=== PATIENT | male | born 1950 | race Caucasian/White ===

== ENCOUNTER 2016-12-22 19:09 | Emergency (ER) | payer OTHER, MEDICARE ==
[~2016-12-22] VITALS: Ht 182.9 cm; Wt 124.7 kg
[~2016-12-22 19:09] MED LIST: AGGRENOX 25 MG-1 CAP PO; ALBUTEROL 3 ML3 ML INH; ALBUTEROL0.09 MG/A1 INH; ALBUTEROL2.5 MG/3 M INH; ALLOPURINOL100 MG; AMLODIPINE BESY10 M1 PO; AMLODIPINE10 MG PO; ATENOLOL50 M1 PO; ATENOLOL50 MG PO; ATORVASTATIN CA40 MG PO; AUGMENTIN 875 M1 TAB PO; Apresoline PO; CARDIZEM 30 MG30 MG PO; CEFTIN500 MG PO; CIPRO500 M1 PO; CLOTRIMAZOLE15 GM TOP; COZAAR100 M1 PO; DIAZEPAM5 MG PO; DILAUDID2 MG PO; DILTIAZEM HCL30 M1 PO; DULOXETINE HCL60 MG PO; ELIQUIS5 M1 PO; ELIQUIS5 MG PO; FINASTERIDE5 M1 PO; FLOMAX0.4 M1 PO; FLUTICASON0.05 MG/A2 NAS; FLUTICASONE PRO16 GM NASB; FUROSEMIDE40 MG PO; GEMFIBROZIL600 M1 PO; GEMFIBROZIL600 MG PO; HYDRALAZINE HCL25 MG PO; HYDROCHLOROTHIA25 M1 PO; LASIX40 MG PO; LIPITOR40 M1 PO; LOPID 600 MG T600 MG PO; LOSARTAN-HCTZ1 EAC2 PO; LYRICA100 MG PO; LYRICA150 MG PO; LYRICA75 MG PO; MELATONIN3 M4 PO; NICORETTE4 M2 PO; NORCO 325 MG-101 TAB PO; NORVASC 10MG10 MG PO; NOVAPLUS V0.09 MG/Ac INH; NOVOLOG100 U/ML SC; Nasal NAS; OXYCODONE HYDRO30 MG PO; OXYCODONE-ACET1 EAC1 PO; OXYCONTIN (MONO40 MG PO; OXYCONTIN15 M1 PO; OXYCONTIN20 MG PO; OXYCONTIN30 MG PO; OXYCONTIN60 MG PO; PERCOCET 325 MG1 TAB PO; PIOGLITAZONE HC45 M1 PO; PIOGLITAZONE30 MG PO; POLYTRIM O200 GTT/BO OPH; PREDNISONE 20MG20 MG PO; ROCEPHIN1000 MG IV; ROXICODONE30 MG PO; SILENOR6 M1 PO; TENORMIN 50MG T50 MG PO; TESSALON PERLE100 MG PO; TRIAMCINOLONE 0.1 GM TOP; TRIAMCINOLONE A15 G1 TOP; TYLENOL TAB 32325 MG PO; URIBEL CAPSULE1 EACH PO; ZITHROMAX Z-PA250 M1 PO; ZITHROMAX500 MG PO
--- NOTE | 2016-12-22 20:03 | ED GI/GU/ABDOMINAL COMPLAINT ---
History of Present Illness General Chief Complaint: Male Genitourinary Problems Stated Complaint: DIFFICULTY URINATING Source: patient, family Exam Limitations: no limitations Vital Signs & Intake/Output Vital Signs & Intake/Output Vital Signs Date Time Temp Pulse Resp B/P Pulse O2 O2 Flow FiO2 Ox Delivery Rate 12/22 1919 97.1 65 18 149/81 96 Room Air ED Intake and Output 12/23 0000 12/22 1200 Intake Total 0 Output Total Balance 0 Intake, Oral 0 Patient 275 lb Weight Allergies Coded Allergies: venom-honey bee (bee venom (honey bee)) (Severe, ANAPHYLAXIS 03/20/16) ibuprofen (Intermediate, KIDNEYS 03/20/16) Reconcile Medications Amlodipine Besylate (Amlodipine) 10 MG TABLET 1 TAB PO DAILY HEART/BP ( Reported) Apixaban (Eliquis) 5 MG TABLET 1 TAB PO BID BLOOD THINNER (Reported) Atenolol 50 MG TABLET 1 TAB PO BID HEART/BP (Reported) Atorvastatin Calcium (Lipitor) 40 MG TABLET 1 TAB PO DAILY CHOLESTEROL ( Reported) Ciprofloxacin HCl (Cipro) 500 MG TABLET 1 TAB PO BID uti Ciprofloxacin HCl (Cipro) 500 MG TABLET 1 TAB PO BID UTI/HEMATURIA Ciprofloxacin HCl (Cipro) 500 MG TABLET 1 TAB PO BID UTI Clotrimazole 15 GM CREAM..G. 1 CSAA TOP BID PRN AFFECTED AREA(S) (Reported) apply to affected area(s) DILTIAZEM HCL (Diltiazem HCl) 30 MG TABLET 1 TAB PO BID HEART RATE (Reported) Doxepin HCl (Silenor) 6 MG TABLET 1 TAB PO QPM PRN SLEEP (Reported) Duloxetine HCl 60 MG CAPSULE.DR 60 MG PO DAILY DEPRESSION (Reported) Finasteride 5 MG TABLET 5 MG PO DAILY urinary retention Fluticasone Propionate 16 GM SPRAY.SUSP 2 SPRAY NASB QHS PRN NASAL CONGESTION (Reported) Gemfibrozil 600 MG TABLET 1 TAB PO BID CHOLESTEROL (Reported) Hydrochlorothiazide 25 MG TABLET 1 TAB PO DAILY HTN (Reported) Losartan (Cozaar) 100 MG TABLET 1 TAB PO DAILY hypertension Melatonin 3 MG TABLET 1 TAB PO QPM insomnia Mth/Me Blue/Sod Phos/Phen/Hyos (Uribel Capsule) 118-10-36 CAPSULE 1 CAP PO TID DYSURIA Nicotine Polacrilex (Nicorette) 4 MG GUM 1 GUM PO Q6 smoking cessation Oxycodone HCl (Oxycontin) 15 MG TAB.ER.12H 1 TAB PO Q8 pain Follow up with Dr. Conte after discharge Oxycodone HCl/Acetaminophen (Oxycodone-Acetaminophen 10-325) 1 EACH TABLET 1 TAB PO [id number] PRN PAIN (Reported) Pioglitazone HCl 45 MG TABLET 0.5 TAB PO DAILY DIABETES (Reported) Pregabalin (Lyrica) 100 MG CAPSULE 2 CAP PO TID PAIN (Reported) Tamsulosin HCl (Flomax) 0.4 MG CAP.ER.24H 1 CAP PO DAILY URINARY RETENTION Tamsulosin HCl (Flomax) 0.4 MG CAP.ER.24H 1 CAP PO DAILY PRN URINE RETENTION Triamcinolone Acetonide 15 GM CREAM..G. 1 CASA TOP TID PRN AFFECTED AREA(S) ( Reported) Triage Note: PT STATES THAT FOR THE PAST 3-4 DAYS THAT HE HAS HAD A HARD TIME STARTING HIS URINE FLOW AND THAT WHEN HE GOES ONLY A VERY SMALL AMOUNT OF URINE COMES OUT . DENIES PAIN Triage Nurses Notes Reviewed? yes Onset: Gradual Duration: week(s):, waxing and waning Timing: recent history Quality/Severity: cramping Location: suprapubic Radiation: no radiation Activities at Onset: none Prior Abdominal Problems: similar symptoms Modifying Factors: Worsens With: urinating. Associated Symptoms: suprapubic pressure HPI: 65 yo gentleman, h/o josiane in jun 2016 presents with urinary retention for the past several weeks. He notes that for the past several weeks, he has had poor urinary stream. "Just a few drops come out... and I feel pressure... I feel all swollen all over." He notes that he has no fever, chills, nausea, vomiting, diarrhea. He is otherwise well. Past History Travel History Traveled to [place] past 21 day No Medical History Any Pertinent Medical History? 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 No Review of Systems Review of Systems Constitutional: Reports: no symptoms. EENTM: Reports: no symptoms. Respiratory: Reports: no symptoms. Cardiovascular: Reports: no symptoms. GI: Reports: no symptoms. Genitourinary: Reports: no symptoms. Musculoskeletal: Reports: no symptoms. Skin: Reports: no symptoms. Neurological/Psychological: Reports: no symptoms. Hematologic/Endocrine: Reports: no symptoms. Immunologic/Allergic: Reports: no symptoms. All Other Systems: Reviewed and Negative Physical Exam Physical Exam General Appearance: well developed/nourished, mild distress Head: atraumatic, normal appearance Eyes: Bilateral: normal appearance. Ears, Nose, Throat, Mouth: hearing grossly normal Neck: normal inspection, supple, full range of motion, normal alignment Respiratory: normal breath sounds, chest non-tender, no respiratory distress, quiet respiration, lungs clear, decreased breath sounds Cardiovascular: regular rate/rhythm Gastrointestinal: normal bowel sounds, soft, non-tender, no organomegaly Back: normal inspection Extremities: normal range of motion Neurologic/Psych: no motor/sensory deficits, awake, alert, oriented x 3 Skin: intact, normal color, warm/dry Core Measures ACS in differential dx? No Severe Sepsis Present: No Septic Shock Present: No Progress Differential Diagnosis: urinary retention, UTI/pyelo, dehydration, chronic renal failure. Plan of Care: Orders Procedure Date/time Status [facility], Insertion/Removal/Asses 12/22 2007 Active CULTURE,URINE 12/22 2007 Active URINALYSIS 12/22 2007 Complete CBC WITHOUT DIFFERENTIAL 12/22 2007 Complete BASIC METABOLIC PANEL 12/22 2007 Complete Laboratory Tests 12/22/16 2316: Urine Color YEL, Urine Clarity CLEAR, Urine pH 6.0, Ur Specific [place] 1.010, Urine Protein 30 H, Urine Ketones NEG, Urine Nitrite NEG, Urine Bilirubin NEG, Urine Urobilinogen 0.2, Ur Leukocyte Esterase NEG, Ur Microscopic SEDIMENT EXAMINED, Urine RBC RARE, Ur Epithelial Cells RARE, Urine Bacteria RARE H, Urine Hemoglobin TRACE-INTACT H, Urine Glucose NEG 12/22/162045: Anion Gap 6, Estimated GFR 43 L, BUN/Creatinine Ratio 21.3, Glucose 133 H, Calcium 8.8, CBC w Diff NO MAN DIFF REQ, RBC 3.63 L, MCV 88.6, MCH 29.6, RDW 14.3, MPV 8.0, Gran % 59.3, Lymphocytes % 25.2, Monocytes % 8.8, Eosinophils % 5.7 H, Basophils % 1.0, Absolute Granulocytes 4.0, Absolute Lymphocytes 1.7, Absolute Monocytes 0.6, Absolute Eosinophils 0.4, Absolute Basophils 0.1, PUBS MCHC 33.4 Microbiology 12/22 2315 URINE ROUT: Urine Culture - RECD Initial ED EKG: none Departure Departure Disposition: HOME OR SELF CARE Condition: Stable Clinical Impression Primary Impression: Urinary retention Referrals: WADE MEDINA,TAYLER Reid (PCP/Family) Departure Forms: Customer Survey General Discharge Information Comments 12/23/16, 0:08AM.... Pt feeling better after 2 liters iv fluids, urine is clear and draining. He is feeling better and would like to go home. He will follow up with dr. brian tomorrow. Close follow up and generous oral intake encouraged. Pt to go home with urine mcleod.
[2016-12-22 20:55] LABS: ABSOLUTE BASOPHIL COUNT 0.1 /CUMM (0.0-0.2); ABSOLUTE EOSINOPHIL COUNT 0.4 /CUMM (0.0-0.7); ABSOLUTE LYMPH COUNT 1.7 /CUMM (1.2-3.4); ABSOLUTE MONOCYTE COUNT 0.6 /CUMM (0.10-0.60); EOSINOPHIL % 5.7 % (0-5); GRANULOCYTE % 59.3 % (42.2-75.2); HEMATOCRIT 32.1 % (42-52); MEAN CORPUSCULAR HGB 29.6 PG (27.0-31.0); MEAN CORPUSCULAR HGB CONC 33.4 G/DL (33.0-37.0); MEAN CORPUSCULAR VOLUME 88.6 FL (80.0-94.0); PLATELET COUNT 191 /CUMM (130-400); RBC DISTRIBUTION WIDTH 14.3 % (11.5-14.5); RED BLOOD CELL CT 3.63 /CUMM (4.70-6.10); WHITE BLOOD CELL COUNT 6.7 /CUMM (4.8-10.8)
[2016-12-23 00:23] VITALS: BP 150/80
== END 2016-12-23 00:28 ==
LOC: ERH 19:09
PROVIDERS: Pediatrics
DX: R33.9 Retention of urine, unspecified (principal)
CPT/HCPCS: 81001; 87086; 96360; 96361

== ENCOUNTER 2016-12-26 15:25 | Emergency (ER) | payer OTHER, MEDICARE ==
[~2016-12-26] VITALS: Ht 182.9 cm; Wt 124.7 kg
--- NOTE | 2016-12-26 16:58 | ED GENERAL ADULT ---
History of Present Illness General Chief Complaint: Lower Extremity Problems Stated Complaint: LEG EDEMA Source: patient, family, old records Exam Limitations: no limitations Vital Signs & Intake/Output Vital Signs & Intake/Output Vital Signs Date Time Temp Pulse Resp B/P Pulse O2 O2 Flow FiO2 Ox Delivery Rate 12/26 1932 97.4 65 18 163/114 94 Room Air 12/26 1824 98.6 62 18 167/73 95 Room Air 12/26 1617 98 Room Air 12/26 1533 97.6 58 20 174/76 95 Room Air Allergies Coded Allergies: venom-honey bee (bee venom (honey bee)) (Severe, ANAPHYLAXIS 12/26/16) ibuprofen (Intermediate, KIDNEYS 12/26/16) Reconcile Medications Amlodipine Besylate (Amlodipine) 10 MG TABLET 1 TAB PO DAILY HEART/BP ( Reported) Apixaban (Eliquis) 5 MG TABLET 1 TAB PO BID BLOOD THINNER (Reported) Atenolol 50 MG TABLET 1 TAB PO BID HEART/BP (Reported) Atorvastatin Calcium (Lipitor) 40 MG TABLET 1 TAB PO DAILY CHOLESTEROL ( Reported) Ciprofloxacin HCl (Cipro) 500 MG TABLET 1 TAB PO BID uti Ciprofloxacin HCl (Cipro) 500 MG TABLET 1 TAB PO BID UTI/HEMATURIA Ciprofloxacin HCl (Cipro) 500 MG TABLET 1 TAB PO BID UTI Clotrimazole 15 GM CREAM..G. 1 CASA TOP BID PRN AFFECTED AREA(S) (Reported) apply to affected area(s) DILTIAZEM HCL (Diltiazem HCl) 30 MG TABLET 1 TAB PO BID HEART RATE (Reported) Doxepin HCl (Silenor) 6 MG TABLET 1 TAB PO QPM PRN SLEEP (Reported) Duloxetine HCl 60 MG CAPSULE.DR 60 MG PO DAILY DEPRESSION (Reported) Finasteride 5 MG TABLET 5 MG PO DAILY urinary retention Fluticasone Propionate 16 GM SPRAY.SUSP 2 SPRAY NASB QHS PRN NASAL CONGESTION (Reported) Gemfibrozil 600 MG TABLET 1 TAB PO BID CHOLESTEROL (Reported) Hydrochlorothiazide 25 MG TABLET 1 TAB PO DAILY HTN (Reported) Losartan (Cozaar) 100 MG TABLET 1 TAB PO DAILY hypertension Melatonin 3 MG TABLET 1 TAB PO QPM insomnia Mth/Me Blue/Sod Phos/Phen/Hyos (Uribel Capsule) 118-10-36 CAPSULE 1 CAP PO TID DYSURIA Nicotine Polacrilex (Nicorette) 4 MG GUM 1 GUM PO Q6 smoking cessation Oxycodone HCl (Oxycontin) 15 MG TAB.ER.12H 1 TAB PO Q8 pain Follow up with Dr. Conte after discharge Oxycodone HCl/Acetaminophen (Oxycodone-Acetaminophen 10-325) 1 EACH TABLET 1 TAB PO [id number] PRN PAIN (Reported) Pioglitazone HCl 45 MG TABLET 0.5 TAB PO DAILY DIABETES (Reported) Pregabalin (Lyrica) 100 MG CAPSULE 2 CAP PO TID PAIN (Reported) Tamsulosin HCl (Flomax) 0.4 MG CAP.ER.24H 1 CAP PO DAILY URINARY RETENTION Tamsulosin HCl (Flomax) 0.4 MG CAP.ER.24H 1 CAP PO DAILY PRN URINE RETENTION Triamcinolone Acetonide 15 GM CREAM..G. 1 CASA TOP TID PRN AFFECTED AREA(S) ( Reported) Triage Note: TRIAGE: PT TO ER WITH C/C BLE EDEMA. NOTICED IT YESTERDAY. HAS NOT HAD EDEMA TO LEGS BEFORE. HAS PREHOSPITAL SAN CATHETER IN PLACE, PLACED IN ER THURSDAY NIGHT. WAS IN HOSPITAL TODAY FOR THYROID U/S AND OUTPATIENT BLOOD WORK. Triage Nurses Notes Reviewed? yes HPI: This is a 65-year-old male with past medical history significant for hypertension, hyperlipidemia, diabetes, CK D3, chronic back pain with numerous surgeries, skin cancer, stroke 2, A. fib on Eliquis, thyroid nodule, and BPH status post TURP in June [address] Jacobo. He comes in for chief complaint of new onset bilateral lower extremity edema for the past 24-48 hours. Of note, patient was seen in [place] ED this past Thursday for decreased urine output. During his Thursday ED visit, a coude catheter was placed and 1400 mL of urine output was obtained. He was discharged home to follow-up with Dr. Jacobo. In the interval pt has noticed noticed lower extremity bilateral edema that extends to his thighs in the past 48 hrs. Patient denies any history of CHF, or prior MO. BNP in 2014 was 306. BEP in showed creatinine 1.6 and GFR 43. At this time, patient denies any chest pain, shortness of breath, headache, nausea, vomiting, or change in bowel movement. He does endorse difficulty with urinating, and came in with prehospital San in place. He states it is the same for those placed on 12/22. He endorses some discomfort with san in place but denies any burning or itching. (APRIL GONZALEZ MD) Onset: Abrupt Duration: day(s): (FEW) Timing: recent history Injury Environment: home Severity: mild No Modifying Factors: none (FROY KWOK MD) Past History Travel History Traveled to [place] past 21 day No Medical History Any Pertinent Medical History? 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 No (APRIL GONZALEZ MD) Review of Systems Review of Systems Constitutional: Denies: chills, diaphoresis, fever, malaise, weakness. EENTM: Denies: blurred vision, visual changes. Respiratory: Denies: cough, hemoptysis, orthopnea, short of breath. Cardiovascular: Reports: edema, peripheral edema. Denies: chest pain, orthopena, palpitations, syncope. GI: Denies: abdominal pain, bloating, constipation, diarrhea, nausea, bloody stool, changes in stool, vomiting. Genitourinary: Reports: hesitation. Musculoskeletal: Reports: back pain, joint pain. Skin: Denies: erythema. (APRIL GONZALEZ MD) Review of Systems Neurological/Psychological: Denies: confusion, headache. Hematologic/Endocrine: Denies: bruising, bleeding. Immunologic/Allergic: Denies: splenectomy. (FROY KWOK MD) Physical Exam Physical Exam General Appearance: well developed/nourished, no apparent distress, alert, awake , comfortable Head: atraumatic, normal appearance Eyes: Bilateral: normal appearance, PERRL, EOMI. Ears, Nose, Throat: normal pharynx, normal ENT inspection Neck: supple Respiratory: normal breath sounds, chest non-tender, no respiratory distress Cardiovascular: regular rate/rhythm, edema Gastrointestinal: soft, non-tender, hernia Extremities: AND HAS BILATERAL LOWER EXTREMITY 2+ PITTING EDEMA ABOVE HIS KNEES. iN ADDITION, HE HAS EVIDENCE OF CHRONIC VENOUS STASIS CHANGES. hIS RIGHT MORE THAN LEFT LEG IS ERYTHEMATOUS WITH SOME SCABS. Core Measures ACS in differential dx? No CVA/TIA Diagnosis: No Severe Sepsis Present: No Septic Shock Present: No (APRIL GONZALEZ MD) Physical Exam Peripheral Pulses: 2+ radial (R), 2+ radial (L) Back: normal inspection, normal range of motion Neurologic/Psych: no motor/sensory deficits, awake, alert, oriented x 3, normal mood/affect Skin: intact, normal color (FROY KWOK MD) Progress Differential Diagnoses I considered the following diagnoses in my evaluation of the patient: [CHF, CK D , thyroid, myocardial ischemia, renal failure,] Initial ED EKG: normal axis, NSR (APRIL GONZALEZ MD) Plan of Care: Orders Procedure Date/time Status Add-on Test (ER Only) 12/26 1817 Active Add-on Test (ER Only) 12/26 1701 Active CBC WITHOUT DIFFERENTIAL 12/26 1645 Complete BASIC ELECTROLYTES PLUS BUN&CR 12/26 1645 Complete CULTURE,URINE 12/26 1644 Active URINALYSIS 12/26 1644 Complete THYROID STIMULATING HORMONE 12/26 1644 Complete TROPONIN LEVEL 12/26 1644 Complete B-TYPE NATRIURETIC PEP (BNP) 12/26 1644 Complete EKG 12/26 1644 Active Laboratory Tests 12/26/16 1645: Anion Gap 10, Estimated GFR 51 L, BUN/Creatinine Ratio 22.9, Troponin I < 0.01, Pcb-N-Gkzejjxttnh Pept 544 H, TSH 1.910, CBC w Diff NO MAN DIFF REQ, RBC 3.57 L, MCV 89.3, MCH 30.3, RDW 14.5, MPV 8.8, Gran % 63.3, Lymphocytes % 21.8, Monocytes % 8.6, Eosinophils % 5.3 H, Basophils % 1.0, Absolute Granulocytes 4.0, Absolute Lymphocytes 1.4, Absolute Monocytes 0.5, Absolute Eosinophils 0.3, Absolute Basophils 0.1, PUBS MCHC 34.0 12/26/16 1640: Urine Color YEL, Urine Clarity HA[place] H, Urine pH 6.0, Ur Specific [place] 1.010, Urine Protein 100 H, Urine Ketones NEG, Urine Nitrite NEG, Urine Bilirubin NEG, Urine Urobilinogen 0.2, Ur Leukocyte Esterase NEG, Ur Microscopic SEDIMENT EXAMINED, Urine RBC 1-3, Urine WBC RARE, Urine Hemoglobin SMALL H, Urine Glucose NEG Microbiology 12/26 1640 URINE ROUT: Urine Culture - RECD We will obtain CBC, BEP, BNP, troponin EKG. Further evaluation of patient's bilateral lower extremity swelling. I spoke with Dr. Michelle and shared the results she can receive one dose of 40 mg IV Lasix and be discharged to follow-up in his office within one week. (LISA MEDINA,APRIL) Diagnostic Imaging: Viewed by Me: Radiology Read. Discussed w/RAD: Radiology Read. CXR Impression: PATIENT: CLAUDINE HAYDEN PRESENT AGE: 65 PATIENT ACCOUNT NO: [id number] : 48 LOCATION: [facility] ORDERING PHYSICIAN: APRIL GONZALEZ MD SERVICE DATE: 12/26/16-1643 EXAM TYPE: RAD - XRY- CHEST XRAY, PA AND LATERAL EXAMINATION: XR CHEST CLINICAL INFORMATION: New-onset lower extremity edema bilaterally, rule out CHF COMPARISON: 06/23/2016 TECHNIQUE : 2 views of the chest were obtained. FINDINGS: Assessment is somewhat limited due to patient body habitus. Lung volumes are symmetric. No focal consolidation is seen. No evidence of pneumothorax, pleural effusion, or pulmonary edema. Cardiac size is at the upper limits of normal. No acute osseous findings are seen. IMPRESSION: No acute cardiopulmonary findings. DICTATED BY: MEDARDO MILLER MD DATE/TIME DICTATED:12/26/161727 CERTIFIED RESPIRATORY THERAPIST:KULWANT DATE/TIME TRANSCRIBED:12/26/161727 CONFIDENTIAL, DO NOT COPY WITHOUT APPROPRIATE AUTHORIZATION. <Electronically signed in Other Vendor System> SIGNED BY: MEDARDO MILLER MD 12/26/16 3939 (FROY KWOK MD) Departure Departure Disposition: HOME OR SELF CARE Condition: Stable Clinical Impression Primary Impression: Edema Referrals: WADE MEDINA,TAYLER Reid (PCP/Family) Additional Instructions: Continue to take your by mouth Lasix as prescribed at home. We will discharge you after administration of one dose of IV Lasix 40 mg. Is follow-up with her PCP regarding your lower extremity swelling. Also, contact Dr. Michelle/ Dr. rivera 's office for a follow-up cardiology appointment within 1 week. Follow up with Dr. Jacobo this upcoming Thursday for urologic appointment Departure Forms: Customer Survey General Discharge Information (APRIL GONZALEZ MD) Resident Co-Sign Statement Statement: ED Attending supervision documentation- [X] I saw and evaluated the patient. I have also reviewed all the pertinent lab results and diagnostic results. I agree with the findings and the plan of care as documented in the Resident's documentation. [X] I have reviewed the ED Record and agree with the Resident's documentation. [] Additions or exceptions (if any) to the Resident's note and plan are summarized below: [] (FROY KWOK MD) Critical Care Note Critical Care Note Critical Care Time: non-applicable (APRIL GONZALEZ MD)
[2016-12-26 17:16] LABS: ABSOLUTE BASOPHIL COUNT 0.1 /CUMM (0.0-0.2); ABSOLUTE EOSINOPHIL COUNT 0.3 /CUMM (0.0-0.7); ABSOLUTE LYMPH COUNT 1.4 /CUMM (1.2-3.4); ABSOLUTE MONOCYTE COUNT 0.5 /CUMM (0.10-0.60); EOSINOPHIL % 5.3 % (0-5); GRANULOCYTE % 63.3 % (42.2-75.2); HEMATOCRIT 31.9 % (42-52); MEAN CORPUSCULAR HGB 30.3 PG (27.0-31.0); MEAN CORPUSCULAR VOLUME 89.3 FL (80.0-94.0); MEAN PLATELET VOLUME 8.8 FL (7.4-10.4); PLATELET COUNT 170 /CUMM (130-400); RBC DISTRIBUTION WIDTH 14.5 % (11.5-14.5); RED BLOOD CELL CT 3.57 /CUMM (4.70-6.10); WHITE BLOOD CELL COUNT 6.3 /CUMM (4.8-10.8)
--- NOTE | 2016-12-26 17:34 | RADIOLOGY REPORT ---
EXAMINATION: XR CHEST CLINICAL INFORMATION: New-onset lower extremity edema bilaterally, rule out CHF COMPARISON: 06/23/2016 TECHNIQUE: 2 views of the chest were obtained. FINDINGS: Assessment is somewhat limited due to patient body habitus. Lung volumes are symmetric. No focal consolidation is seen. No evidence of pneumothorax, pleural effusion, or pulmonary edema. Cardiac size is at the upper limits of normal. No acute osseous findings are seen. IMPRESSION: No acute cardiopulmonary findings.
[2016-12-26 20:05] VITALS: BP 178/70
== END 2016-12-26 20:12 ==
LOC: ERH 15:25
PROVIDERS: Student in an Organized Health Care Education/Training Program
DX: R60.0 Localized edema (principal); R33.9 Retention of urine, unspecified; E78.5 Hyperlipidemia, unspecified; E11.22 Type 2 diabetes mellitus with diabetic chronic kidney disease; I12.9 Hypertensive chronic kidney disease with stage 1 through stage 4 chronic kidney disease, or unspecified chronic kidney disease; N18.3 Chronic kidney disease, stage 3 (moderate); I48.91 Unspecified atrial fibrillation; Z79.01 Long term (current) use of anticoagulants; G47.33 Obstructive sleep apnea (adult) (pediatric)
CPT/HCPCS: 81001; 82436; 87086; 93005; 93010; 96374; J1940

== ENCOUNTER 2017-01-01 12:16 | Emergency (ER) | payer OTHER, MEDICARE ==
[~2017-01-01] VITALS: Ht 182.9 cm; Wt 124.7 kg
--- NOTE | 2017-01-01 13:54 | ED GI/GU/ABDOMINAL COMPLAINT ---
History of Present Illness General Chief Complaint: Male Genitourinary Problems Stated Complaint: NO OUTPUT WITH CATH Source: patient, family, old records Exam Limitations: no limitations Vital Signs & Intake/Output Vital Signs & Intake/Output Vital Signs Date Time Temp Pulse Resp B/P Pulse O2 O2 Flow FiO2 Ox Delivery Rate 01/01 1601 96.6 61 20 134/63 94 Room Air 01/01 1226 97.5 60 16 160/68 94 Allergies Coded Allergies: venom-honey bee (bee venom (honey bee)) (Severe, ANAPHYLAXIS 12/26/16) ibuprofen (Intermediate, KIDNEYS 12/26/16) Reconcile Medications Amlodipine Besylate (Amlodipine) 10 MG TABLET 1 TAB PO DAILY HEART/BP ( Reported) Apixaban (Eliquis) 5 MG TABLET 1 TAB PO BID BLOOD THINNER (Reported) Atenolol 50 MG TABLET 1 TAB PO BID HEART/BP (Reported) Atorvastatin Calcium (Lipitor) 40 MG TABLET 1 TAB PO DAILY CHOLESTEROL ( Reported) Ciprofloxacin HCl (Cipro) 500 MG TABLET 1 TAB PO BID uti Ciprofloxacin HCl (Cipro) 500 MG TABLET 1 TAB PO BID UTI/HEMATURIA Ciprofloxacin HCl (Cipro) 500 MG TABLET 1 TAB PO BID UTI Clotrimazole 15 GM CREAM..G. 1 CASA TOP BID PRN AFFECTED AREA(S) (Reported) apply to affected area(s) DILTIAZEM HCL (Diltiazem HCl) 30 MG TABLET 1 TAB PO BID HEART RATE (Reported) Doxepin HCl (Silenor) 6 MG TABLET 1 TAB PO QPM PRN SLEEP (Reported) Duloxetine HCl 60 MG CAPSULE.DR 60 MG PO DAILY DEPRESSION (Reported) Finasteride 5 MG TABLET 5 MG PO DAILY urinary retention Fluticasone Propionate 16 GM SPRAY.SUSP 2 SPRAY NASB QHS PRN NASAL CONGESTION (Reported) Gemfibrozil 600 MG TABLET 1 TAB PO BID CHOLESTEROL (Reported) Hydrochlorothiazide 25 MG TABLET 1 TAB PO DAILY HTN (Reported) Losartan (Cozaar) 100 MG TABLET 1 TAB PO DAILY hypertension Melatonin 3 MG TABLET 1 TAB PO QPM insomnia Mth/Me Blue/Sod Phos/Phen/Hyos (Uribel Capsule) 118-10-36 CAPSULE 1 CAP PO TID DYSURIA Nicotine Polacrilex (Nicorette) 4 MG GUM 1 GUM PO Q6 smoking cessation Oxycodone HCl (Oxycontin) 15 MG TAB.ER.12H 1 TAB PO Q8 pain Follow up with Dr. Conte after discharge Oxycodone HCl/Acetaminophen (Oxycodone-Acetaminophen 10-325) 1 EACH TABLET 1 TAB PO T6P-63A PRN PAIN (Reported) Pioglitazone HCl 45 MG TABLET 0.5 TAB PO DAILY DIABETES (Reported) Pregabalin (Lyrica) 100 MG CAPSULE 2 CAP PO TID PAIN (Reported) Tamsulosin HCl (Flomax) 0.4 MG CAP.ER.24H 1 CAP PO DAILY URINARY RETENTION Tamsulosin HCl (Flomax) 0.4 MG CAP.ER.24H 1 CAP PO DAILY PRN URINE RETENTION Triamcinolone Acetonide 15 GM CREAM..G. 1 CASA TOP TID PRN AFFECTED AREA(S) ( Reported) Triage Note: PT STATES HE WAS SEEN LAST THURSDAY AND HAD SAN PLACED. PT STATES HE THINKS ITS CLOGGED BECAUSE HE HAS NO URINE OUTPUT. PT ALSO HAS SWELLING IN HIS LOWER EXT. PT HAS SURGERY SCHEDULED WITH DR. JACOBO. Triage Nurses Notes Reviewed? yes HPI: Patient with chronic indwelling San catheter, history of laser TURP and removal of clot by Dr. Jacobo, here with catheter problems. He states is not draining as much as usual. He is getting very small blood clots at times and found that his urine output has been less, he also noticed that the output is somewhat positional and he needs to strain to make the San drain more. He denies any abdominal pain or pressure. No nausea vomiting, no back pain or fever. He does have mild malaise and generalized fatigue. He has history of chronic kidney insufficiency. His by mouth intake has been normal. He states that his legs are slightly more swollen than usual. (ADILENE GIL,JULIO) Past History Travel History Traveled to [place] past 21 day No Medical History Any Pertinent Medical History? 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 No (JULIO SERVIN) Review of Systems Review of Systems Constitutional: Reports: see HPI. EENTM: Reports: no symptoms. Respiratory: Reports: no symptoms. Cardiovascular: Reports: no symptoms. GI: Reports: no symptoms. Genitourinary: Reports: see HPI. Musculoskeletal: Reports: no symptoms. Skin: Reports: no symptoms. Neurological/Psychological: Reports: no symptoms. Hematologic/Endocrine: Reports: no symptoms. Immunologic/Allergic: Reports: no symptoms. All Other Systems: Reviewed and Negative (JULIO SERVIN) Physical Exam Physical Exam Gastrointestinal: normal bowel sounds, soft, non-tender, no organomegaly ( positive obese) Comments: Well-developed well-nourished no apparent distress. HEENT: Atraumatic, extraocular motion intact Neck: Supple, no lymphadenopathy Back: Nontender Respiratory: No respiratory distress clear to auscultation bilateral. Heart: Regular rhythm no murmur Extremities: 2+ pitting bilateral lower extremity edema with chronic skin changes noted anterior lower legs., full range of motion Neuro: Alert and oriented x3 Psych: Mood affect normal, normal memory normal judgment. Skin: Warm and dry, no rash on exposed skin San catheter to leg bag, draining approximately 200 mL of clear yellow urine noted in bag Core Measures ACS in differential dx? No Severe Sepsis Present: No Septic Shock Present: No (JULIO SERVIN) Progress Differential Diagnosis: AAA, AMI, appendicitis, biliary colic, bowel obstruction , colon cancer, cholecystitis, diverticulitis, epididymitis, esophageal varices, gastritis, hepatitis, hernia, hemorrhoids, ischemic bowel, inflamm bowel dis, Tootie-Yajaira tear, orchitis, pancreatitis, prostatitis, peptic ulcer, PUD/GERD, perforated viscous, pyelonephritis, SBO, STD, testicular torsion, ureterolithiasis, urinary retention, urethritis, UTI/pyelo Plan of Care: Orders Procedure Date/time Status CULTURE,URINE 01/01 1343 Active URINALYSIS 01/01 1343 Complete COMPREHENSIVE METABOLIC PANEL 01/01 1343 Complete CBC WITHOUT DIFFERENTIAL 01/01 1343 Complete Laboratory Tests 01/01/17 1412: Anion Gap 10, Estimated GFR 40 L, BUN/Creatinine Ratio 15.3, Glucose 166 H, Calcium 8.6, Total Bilirubin 0.5, AST 26, ALT 28, Alkaline Phosphatase 121, Total Protein 6.5, Albumin 3.7, Globulin 2.8, Albumin/Globulin Ratio 1.3, CBC w Diff NO MAN DIFF REQ, RBC 3.59 L, MCV 88.3, MCH 29.7, RDW 13.8, MPV 8.9, Gran % 68.1, Lymphocytes % 19.2 L, Monocytes % 7.8, Eosinophils % 4.3, Basophils % 0.6 , Absolute Granulocytes 5.6, Absolute Lymphocytes 1.6, Absolute Monocytes 0.6, Absolute Eosinophils 0.4, Absolute Basophils 0.1, PUBS MCHC 33.6, Urinalysis MOD H, Urine Color YEL, Urine Clarity HAZY H, Urine pH 6.0, Ur Specific [place] 1.025, Urine Protein 100 H, Urine Ketones NEG, Urine Nitrite NEG, Urine Bilirubin NEG, Urine Urobilinogen 0.2, Ur Leukocyte Esterase SMALL H, Ur Microscopic SEDIMENT EXAMINED, Urine RBC 15-25 H, Urine WBC 15-25 H, Ur Epithelial Cells RARE, Urine Mucus FEW, Urine Hemoglobin MOD H, Urine Glucose NEG Microbiology 01/02 1412 URINE ROUT: Urine Culture - RECD Initial ED EKG: none Comments: San catheter adjustment was made without having to remove the San altogether , he was able to flush and irrigated and approximate 500 mL's of urine output was obtained. Patient had complete resolution of symptoms after this. His laboratory values are unremarkable except for mild hyponatremia which is chronic for patient and intermittent. This is discussed with him, should increase his salt intake slightly and restrict fluids and follow-up with his doctor or housing inspectors in the next 1-2 weeks. (JULIO SERVIN) Departure Departure Disposition: HOME OR SELF CARE Condition: Stable Clinical Impression Primary Impression: San catheter problem Qualifiers: Encounter type: initial encounter Qualified Code: T83.9XXA - Unspecified complication of genitourinary prosthetic device, implant and graft, initial encounter Secondary Impressions: Hyponatremia Referrals: WADE MEDINA,TAYLER Reid (PCP/Family) Additional Instructions: Restrict your free water intake and slightly increase the salt in your diet due to low salt levels in your blood. follow up with your doctor or housing inspectors for further monitoring of you salt levels. Departure Forms: Customer Survey General Discharge Information (ADILENE GIL,JULIO) PA/NODULIZER Co-Sign Statement Statement: ED Attending supervision documentation- [X] I saw and evaluated the patient. I have also reviewed all the pertinent lab results and diagnostic results. I agree with the findings and the plan of care as documented in the PA's/NODULIZER's documentation. [X] I have reviewed the ED Record and agree with the PA's/NODULIZER's documentation. [] Additions or exceptions (if any) to the PAs/NODULIZER's note and plan are summarized below: [] (JOSH MEDINA,ANSHUL Saez)
[2017-01-01 14:39] LABS: ABSOLUTE BASOPHIL COUNT 0.1 /CUMM (0.0-0.2); ABSOLUTE EOSINOPHIL COUNT 0.4 /CUMM (0.0-0.7); ABSOLUTE GRANULOCYTE CT 5.6 /CUMM (1.4-6.5); ABSOLUTE LYMPH COUNT 1.6 /CUMM (1.2-3.4); ABSOLUTE MONOCYTE COUNT 0.6 /CUMM (0.10-0.60); BASOPHIL % 0.6 % (0.0-2.0); EOSINOPHIL % 4.3 % (0-5); GRANULOCYTE % 68.1 % (42.2-75.2); HEMATOCRIT 31.7 % (42-52); MEAN CORPUSCULAR HGB 29.7 PG (27.0-31.0); MEAN CORPUSCULAR HGB CONC 33.6 G/DL (33.0-37.0); MEAN CORPUSCULAR VOLUME 88.3 FL (80.0-94.0); MEAN PLATELET VOLUME 8.9 FL (7.4-10.4); PLATELET COUNT 245 /CUMM (130-400); RBC DISTRIBUTION WIDTH 13.8 % (11.5-14.5); RED BLOOD CELL CT 3.59 /CUMM (4.70-6.10); WHITE BLOOD CELL COUNT 8.3 /CUMM (4.8-10.8)
[2017-01-01 16:01] VITALS: BP 134/63
== END 2017-01-01 16:25 ==
LOC: ERH 12:16
PROVIDERS: Physician Assistant Surgical
DX: T83.091A Other mechanical complication of indwelling urethral catheter, initial encounter (principal); E87.1 Hypo-osmolality and hyponatremia; R31.9 Hematuria, unspecified
CPT/HCPCS: 81001; 87086

== ENCOUNTER 2017-01-15 18:33 | Emergency (ER) | payer OTHER, MEDICARE ==
[~2017-01-15] VITALS: Ht 182.9 cm; Wt 124.7 kg
[2017-01-15] MEDS ORDERED: HYDROCHLOROTH12.5 M2 PO (19:45)
[2017-01-15] MEDS ORDERED: OXYCONTIN30 M1 PO (19:48)
[2017-01-15] MEDS ORDERED: PIOGLITAZONE HC45 M1 PO (19:48)
[2017-01-15] MEDS ORDERED: OXYCODONE-ACET1 EAC1 PO (19:48)
[2017-01-15] MEDS ORDERED: LYRICA100 M1 PO (19:49)
[2017-01-15] MEDS ORDERED: FINASTERIDE5 M1 (19:49)
[2017-01-15] MEDS ORDERED: DERMOTIC20 ML OT (19:50)
--- NOTE | 2017-01-15 19:50 | ED GI/GU/ABDOMINAL COMPLAINT ---
History of Present Illness General Chief Complaint: Male Genitourinary Problems Stated Complaint: PT POSSIBLE UTI Source: patient, family, old records Exam Limitations: no limitations Vital Signs & Intake/Output Vital Signs & Intake/Output Vital Signs Date Time Temp Pulse Resp B/P Pulse O2 O2 Flow FiO2 Ox Delivery Rate 01/15 2035 96.0 60 20 169/72 96 Room Air 01/15 1846 97.4 60 16 176/71 95 Allergies Coded Allergies: venom-honey bee (bee venom (honey bee)) (Severe, ANAPHYLAXIS 12/26/16) ibuprofen (Intermediate, KIDNEYS 12/26/16) Reconcile Medications Amlodipine Besylate 10 MG TABLET 1 TAB PO DAILY HEART/BP (Reported) Apixaban (Eliquis) 5 MG TABLET 1 TAB PO BID BLOOD THINNER (Reported) Atenolol 50 MG TABLET 1 TAB PO BID HEART/BP (Reported) Atorvastatin Calcium (Lipitor) 40 MG TABLET 1 TAB PO DAILY CHOLESTEROL ( Reported) Ciprofloxacin HCl (Cipro) 500 MG TABLET 1 TAB PO BID uti Diltiazem HCl 30 MG TABLET 1 TAB PO BID HEART RATE (Reported) Finasteride (Unknown Strength) TABLET (Unknown Dose) UNKNOWN (Reported) Fluocinolone Acetonide Oil (Dermotic) 0.01 % DROPS 5 GTT OT BID BOTH EARS ( Reported) Gemfibrozil 600 MG TABLET 1 TAB PO BID CHOLESTEROL (Reported) Hydrochlorothiazide 12.5 MG TABLET 1 TAB PO DAILY DIURETIC/BP (Reported) Losartan (Cozaar) 100 MG TABLET 1 TAB PO DAILY hypertension Oxycodone HCl (Oxycontin) 30 MG TAB.ER.12H 1 TAB PO TID PRN PAIN (Reported) Oxycodone HCl/Acetaminophen (Oxycodone-Acetaminophen 10-325) 10 MG-325 MG TABLET 1 TAB PO TID PRN PAIN (Reported) Pioglitazone HCl 45 MG TABLET 1 TAB PO DAILY DM (Reported) Pregabalin (Lyrica) 100 MG CAPSULE 1 CAP PO 6XDAILY PAIN (Reported) Tamsulosin HCl (Flomax) 0.4 MG CAP.ER.24H 1 CAP PO DAILY URINARY RETENTION Triage Note: PT STATES HE HAS A SAN AND HE IS HAVING BACK PAIN AND HE IS HAVING PURULANT DRAINAGE IN THE BAG Triage Nurses Notes Reviewed? yes Onset: Abrupt Duration: constant Timing: remote history Location: urethral Radiation: no radiation No Modifying Factors: none HPI: 58-year-old male comes into emergency room with complaints of a burning sensation in his catheter as well as some white thick discharge noticed in the tubing of the catheter. The San has been in for about a month. He denies any fever chills vomiting and abdominal pain. Patient is due to get a prostatectomy next week. Patient sees Dr. Jacobo. Denies any other complaints. Denies any other associated symptoms. (MATT FIERRO) Past History Travel History Traveled to [place] past 21 day No Medical History Any Pertinent Medical History? 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 No (MATT FIERRO) Review of Systems Review of Systems Constitutional: Reports: no symptoms. EENTM: Reports: no symptoms. Respiratory: Reports: no symptoms. Cardiovascular: Reports: no symptoms. GI: Reports: no symptoms. Genitourinary: Reports: see HPI. Musculoskeletal: Reports: no symptoms. Skin: Reports: no symptoms. Neurological/Psychological: Reports: no symptoms. Hematologic/Endocrine: Reports: no symptoms. Immunologic/Allergic: Reports: no symptoms. All Other Systems: Reviewed and Negative (MATT FIERRO) Physical Exam Physical Exam General Appearance: well developed/nourished, no apparent distress, alert Head: atraumatic, normal appearance Eyes: Bilateral: normal appearance. Ears, Nose, Throat, Mouth: hearing grossly normal, moist mucous membrane Neck: normal inspection Respiratory: no respiratory distress Cardiovascular: regular rate/rhythm Gastrointestinal: soft Back: normal inspection Extremities: normal range of motion Neurologic/Psych: awake, alert Skin: intact, normal color Core Measures ACS in differential dx? No Severe Sepsis Present: No Septic Shock Present: No (MATT FIERRO) Progress Differential Diagnosis: prostatitis, peptic ulcer, PUD/GERD, pyelonephritis, ureterolithiasis, urinary retention, urethritis, UTI/pyelo Plan of Care: Orders Procedure Date/time Status Add-on Test (ER Only) 01/15 1933 Active CULTURE,URINE 01/16 1856 Active URINALYSIS 01/16 1852 Complete Laboratory Tests 01/15/171851: Urinalysis LIGHT H, Urine Color YEL, Urine Clarity HAZY H, Urine pH 6.0, Ur Specific [place] 1.015, Urine Protein 100 H, Urine Ketones NEG, Urine Nitrite NEG, Urine Bilirubin NEG, Urine Urobilinogen 0.2, Ur Leukocyte Esterase MOD H, Ur Microscopic SEDIMENT EXAMINED, Urine RBC >75 H, Urine WBC 15-25 H, Ur Epithelial Cells FEW, Urine Bacteria FEW H, Hyaline Casts FEW H, Granular Casts RARE H, Urine Mucus RARE, Urine Hemoglobin MOD H, Urine Glucose NEG Microbiology 01/16 1856 URINE ROUT: Urine Culture - RECD Initial ED EKG: none Comments: 01/15/2017 8:15:28 PM Patient clinically looks well. Patient is nontoxic-appearing. Patient is in no apparent distress. Patient resting comfortably in room. Patient started on oral antibiotics. Patient was told to call Dr. Jacobo. Return if any other concerns. She understands and agrees plan of care. Case discussed with Dr. vides. (MATT FIERRO) Departure Departure Disposition: HOME OR SELF CARE Condition: Stable Clinical Impression Primary Impression: UTI (urinary tract infection) Referrals: TAYLER OLVERA MD (PCP/Family) Additional Instructions: Take ciprofloxacin as prescribed. Follow-up with your urologist. Return if any concerns worsening symptoms. Please go over all results of today's visit with your primary care doctor. Contact your primary care doctor to let them know you were here in the emergency room. There may be nonspecific findings which may not be related to your visit today here in the emergency room but may require further evaluation and chronic monitoring by your primary care doctor. If you had a laceration today the chance of foreign body always remains. You should follow-up with your primary care doctor for recheck in 3-5 days for a wound check. If you had an x-ray done there is a chance that a fracture could have been missed on initial read and you should follow-up with your primary care doctor for repeat x-rays if symptoms persist. If your blood pressure was elevated here in the emergency room please have rechecked by her primary care doctor within the next 48 hours by your primary care doctor. If you were prescribed a narcotic here in the emergency room or any type of controlled substances you're not allowed to drive while taking this medication or operate any type of heavy machinery. Narcotics can make you feel lightheaded dizziness nausea and can cause constipation. You may need to case picker a stool softener. Thank you for choosing [facility] emergency room. Please return to the emergency room immediately if you have any other concerns worsening of symptoms. Departure Forms: Customer Survey General Discharge Information Prescriptions: Current Visit Scripts Ciprofloxacin HCl (Cipro) 1 TAB PO BID #14 TAB (MATT FIERRO) PA/MANAGER INTELLIGENCE Co-Sign Statement Statement: ED Attending supervision documentation- X I saw and evaluated the patient. I have also reviewed all the pertinent lab results and diagnostic results. I agree with the findings and the plan of care as documented in the PA's/MANAGER INTELLIGENCE's documentation. [] I have reviewed the ED Record and agree with the PA's/MANAGER INTELLIGENCE's documentation. [] Additions or exceptions (if any) to the PAs/MANAGER INTELLIGENCE's note and plan are summarized below: [] (VLADIMIR MEDINA,TANYA)
[2017-01-15] MEDS ORDERED: CIPRO500 M1 PO (20:02)
[2017-01-15 20:35] VITALS: BP 169/72
== END 2017-01-15 20:37 ==
LOC: ERH 18:33
DX: N39.0 Urinary tract infection, site not specified (principal)
CPT/HCPCS: 81001; 87086; 87147

== ENCOUNTER 2017-01-16 16:06 | Emergency (ER) | payer OTHER, MEDICARE ==
[~2017-01-16] VITALS: Ht 182.9 cm; Wt 124.7 kg
[~2017-01-16 16:06] MED LIST changes: +DERMOTIC20 ML OT; +FINASTERIDE5 M1; +HYDROCHLOROTH12.5 M2 PO; +LYRICA100 M1 PO; +OXYCONTIN30 M1 PO
--- NOTE | 2017-01-16 16:23 | ED GENERAL ADULT ---
See Addendum History of Present Illness General Chief Complaint: General Adult Stated Complaint: URINARY RENTENTION/EDEMA TO BOTH LOWER EXTREMITIES Source: patient Exam Limitations: no limitations Vital Signs & Intake/Output Vital Signs & Intake/Output Vital Signs Date Time Temp Pulse Resp B/P Pulse O2 O2 Flow FiO2 Ox Delivery Rate 01/17 0024 96.5 60 18 134/61 97 01/17 0015 57 97 01/16 2230 110 98 01/16 2152 97.8 62 17 138/67 94 Room Air 01/16 1851 55 16 134/63 95 Room Air 01/16 1741 Room Air Room Air 01/16 1615 97.4 58 20 150/71 93 Room Air ED Intake and Output 01/17 0000 01/16 1200 Intake Total 500 Output Total 700 Balance -200 Intake, Other 500 Output, Urine 700 Patient 275 lb Weight Allergies Coded Allergies: venom-honey bee (bee venom (honey bee)) (Severe, ANAPHYLAXIS 12/26/16) ibuprofen (Intermediate, KIDNEYS 12/26/16) Reconcile Medications Amlodipine Besylate 10 MG TABLET 1 TAB PO DAILY HEART/BP (Reported) Apixaban (Eliquis) 5 MG TABLET 1 TAB PO BID BLOOD THINNER (Reported) Atenolol 50 MG TABLET 1 TAB PO BID HEART/BP (Reported) Atorvastatin Calcium (Lipitor) 40 MG TABLET 1 TAB PO DAILY CHOLESTEROL ( Reported) Ciprofloxacin HCl (Cipro) 500 MG TABLET 1 TAB PO BID uti Diltiazem HCl 30 MG TABLET 1 TAB PO BID HEART RATE (Reported) Finasteride (Unknown Strength) TABLET (Unknown Dose) UNKNOWN (Reported) Fluocinolone Acetonide Oil (Dermotic) 0.01 % DROPS 5 GTT OT BID BOTH EARS ( Reported) Gemfibrozil 600 MG TABLET 1 TAB PO BID CHOLESTEROL (Reported) Hydrochlorothiazide 12.5 MG TABLET 1 TAB PO DAILY DIURETIC/BP (Reported) Losartan (Cozaar) 100 MG TABLET 1 TAB PO DAILY hypertension Oxycodone HCl (Oxycontin) 30 MG TAB.ER.12H 1 TAB PO TID PRN PAIN (Reported) Oxycodone HCl/Acetaminophen (Oxycodone-Acetaminophen 10-325) 10 MG-325 MG TABLET 1 TAB PO TID PRN PAIN (Reported) Pioglitazone HCl 45 MG TABLET 1 TAB PO DAILY DM (Reported) Pregabalin (Lyrica) 100 MG CAPSULE 1 CAP PO 6XDAILY PAIN (Reported) Tamsulosin HCl (Flomax) 0.4 MG CAP.ER.24H 1 CAP PO DAILY URINARY RETENTION Triage Note: RECEIVED 66 YO MALE WITH HX OF INDWELLING CATHETER SINCE 12/22/16, WAS HERE LAST FOR UTI. PT C/O CATHETER NOT DRAINING MUCH URINE SINCE THIS AM. CATHETER USUALLY DRAINS MUCH MORE URINE. PT ALSO REPORTS HIS LOWER EXTREMITY EDEMA IS MUCH WORSE THAN LAST NIGHT. ACCORDING TO , PT APPEARS TO BE NOT WITH IT AT TIMES.PT ALSO REPORTS GENITAL AREA PAIN. Triage Nurses Notes Reviewed? yes Onset: Abrupt Duration: hour(s): Timing: recent history HPI: 01/16/17 4:38 PM 58-year-old male presents to the emergency department complaining of decreased urine output and feeling sleepy according to his . The patient states he is in pain management and is on pain medication. He also has an enlarged prostate and is scheduled for a procedure by Dr. Jacobo on . He was seen earlier in the week in the emergency department for urinary retention and a San was plasced. Now he's had decreased urine output. His felt he's also been sleeping more this morning. He denies any chest pain shortness of breath or fever. The onset of the symptoms were abrupt, the duration was just today, the severity is significant; as his symptoms required him to come to the emergency department for care. He has past medical history of enlarged prostate and chronic pain. On physical exam he is awake alert oriented 3. His abdomen is soft and nontender. He does have about 400 mL of urine draining from the San tube. I spoke with the nurse. We will flush the San and check the labs. (DAVE MATTSON DO) Past History Travel History Traveled to [place] past 21 day No Medical History Any Pertinent Medical History? 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 No (DAVE MATTSON DO) Review of Systems Review of Systems Constitutional: Denies: fever. EENTM: Denies: visual changes. Respiratory: Denies: cough. Cardiovascular: Denies: chest pain. GI: Denies: abdominal pain. Genitourinary: Reports: see HPI. Musculoskeletal: Reports: see HPI. Skin: Reports: no symptoms. Neurological/Psychological: Reports: no symptoms. Hematologic/Endocrine: Reports: no symptoms. Immunologic/Allergic: Reports: no symptoms. (DAVE MATTSON DO) Physical Exam Physical Exam General Appearance: alert, awake, anxious, mild distress Head: atraumatic, normal appearance Eyes: Bilateral: normal appearance, PERRL, EOMI. Ears, Nose, Throat: normal pharynx, normal ENT inspection Neck: normal inspection, supple Respiratory: normal breath sounds, chest non-tender, no respiratory distress Cardiovascular: regular rate/rhythm Peripheral Pulses: 4+ radial (R), 4+ radial (L) Gastrointestinal: non-tender Back: normal range of motion Extremities: normal range of motion, no edema Neurologic/Psych: no motor/sensory deficits, awake, alert, oriented x 3 Skin: intact, normal color, warm/dry Core Measures ACS in differential dx? No CVA/TIA Diagnosis: No Severe Sepsis Present: No Septic Shock Present: No (DAVE MATTSON DO) Progress Differential Diagnoses I considered the following diagnoses in my evaluation of the patient: [Acute kidney injury, blocked San, dehydration, electrolyte derangement, adverse drug reaction, hypercarbic respiratory failure] Pneumonia The nurse readjusted the San and free flow was demonstrated in both directions with irrigation. Plan of Care: Orders Procedure Date/time Status ARTERIAL BLOOD GAS (GEN) 01/16 235 Complete EKG 01/16 1955 Active ARTERIAL BLOOD GAS (GEN) 01/16 194 Complete CULTURE,URINE 01/16 163 Active URINE DRUG SCREEN FOR ER ONLY 03/24 1637 Complete URINALYSIS 01/16 163 Complete COMPREHENSIVE METABOLIC PANEL 01/16 163 Complete CBC WITHOUT DIFFERENTIAL 01/16 1637 Complete Laboratory Tests 01/17/17 0005: pH 7.23 *L, pCO2 42, pO2 49 *L, HCO3 17 L, ABG O2 Sat (Measured) 79.0 L, P-50 (Temp Corrected) N, Carboxyhemoglobin 0.3 L, O2 Concentration % 30%, Respiration Rate 18, O2 Delivery Method BIPAP, Vent Mode ST, Expiratory Pressure 6, Inspiratory Pressure 14, Phlebotomy Draw Site LEFT RADIAL 01/16/172045: pH 7.25 *L, pCO2 62 *H, pO2 71 L, HCO3 26, ABG O2 Sat (Measured) 92.0 L, Carboxyhemoglobin 0.8 L, O2 Concentration % RA, O2 Delivery Method RA, Phlebotomy Draw Site LEFT RADIAL 01/16/17 1844: Urine Opiates Screen 1344.00, Methadone Screen 70, Barbiturate Screen < 60, Ur Phencyclidine Scrn < 6.00, Amphetamines Screen < 100, U Benzodiazepines Scrn < 85, Urine Cocaine Screen < 50, Urine Cannabis Screen < 5.00, Urine Color YEL, Urine Clarity CLEAR, Urine pH 6.0, Ur Specific Fred 1.025, Urine Protein 100 H, Urine Ketones NEG, Urine Nitrite NEG, Urine Bilirubin NEG, Urine Urobilinogen 0.2, Ur Leukocyte Esterase NEG, Ur Microscopic SEDIMENT EXAMINED, Urine RBC >75 H, Urine WBC 3-5 H, Ur Epithelial Cells TRANS H, Hyaline Casts MOD H, Granular Casts RARE H, Urine Mucus FEW, Urine Hemoglobin MOD H, Urine Glucose NEG 01/16/17 1728: CBC w Diff NO MAN DIFF REQ, RBC 3.78 L, MCV 88.9, MCH 29.4, RDW 13.6, MPV 8.6, Gran % 68.0, Lymphocytes % 19.6 L, Monocytes % 8.2, Eosinophils % 3.6, Basophils % 0.6, Absolute Granulocytes 5.0, Absolute Lymphocytes 1.5, Absolute Monocytes 0.6, Absolute Eosinophils 0.3, Absolute Basophils 0, PUBS MCHC 33.1 01/16/17 1726: Anion Gap 12, Estimated GFR 35 L, BUN/Creatinine Ratio 18.9, Glucose 146 H, Calcium 8.9, Total Bilirubin 0.5, AST 23, ALT 33, Alkaline Phosphatase 124, Total Protein 7.1, Albumin 4.0, Globulin 3.1, Albumin/Globulin Ratio 1.3 Microbiology 01/17 1844 URINE ROUT: Urine Culture - RECD 01/16/17 7 pm The patient's urine toxicology screen is pending. The verbalized concerns that he is dozing off. Arterial blood gas was ordered, chest x-ray was ordered. He will be monitored on the pulse oximeter. The patient was signed out to Dr. Hunter for reevaluation. (DAVE MATTSON DO) Initial ED EKG: none (DAVE MATTSON DO) Diagnostic Imaging: Viewed by Me: Radiology Read. Discussed w/RAD: Radiology Read. CXR Impression: PATIENT: MATT HAYDEN PRESENT AGE: 66 PATIENT ACCOUNT NO: [id number] : 48 LOCATION: [facility] ORDERING PHYSICIAN: DAVE MATTSON DO SERVICE DATE: 01/16/17 EXAM TYPE: RAD - XRY- PORTABLE CHEST XRAY EXAMINATION: XR PORTABLE CHEST CLINICAL INFORMATION: Pneumonia COMPARISON: Prior chest 12/26/2016. TECHNIQUE: Portable AP view of the chest was obtained. FINDINGS: There is new subtle opacity at the right base which could reflect atelectasis or an evolving infiltrate/pneumonia. Lungs otherwise clear. Cardiac silhouette, mediastinum, and pulmonary vascularity normal. IMPRESSION: Nonspecific opacity at the right base as could reflect atelectasis. Evolving pneumonia cannot be excluded. Continued follow-up as felt clinically necessary. DICTATED BY: JERRICA RUSSO MD DATE/TIME DICTATED:2013 FILLING STATION LABORER:KULWANT DATE/TIME TRANSCRIBED:01/16/172013 CONFIDENTIAL, DO NOT COPY WITHOUT APPROPRIATE AUTHORIZATION. <Electronically signed in Other Vendor System> SIGNED BY: JERRICA RUSSO MD 01/16/172036 Comments: 01/16/2017 7:52:21 PM patient signed out to me by Dr. Mattson at shift belt changer. Patient presented because of decreased urine output in his San catheter. His is also concerned that he has been somewhat lethargic. Chest x-ray blood gas pending, clinical impression of overmedication with opiates. 01/16/2017 8:08:26 PM I have notified Matt of the pending chest x-ray and ordered blood gas. He appears awake alert and conversant. He is sipping water. 01/16/2017 8:55:37 PM 7.25/62/71/26/92% per respiratory therapist. Patient is testing strongly positive for opiate pain relievers. Given that there is no clinical history suggestive of pneumonia, I doubt the findings reflect pneumonia but instead very likely reflect atelectasis. I will have a discussion regarding treatment modalities (Narcan versus CPAP). 01/16/2017 9:09:37 PM respiratory therapist notified of patient's decision for CPAP. 01/16/2017 10:13:50 PM BiPAP machine being sanitized by the respiratory therapist and will be placed momentarily. The patient complained of back pain because of sitting in the stretcher so he is being offered a chair at the bedside. Patient's speech is clear and he is conversant. 01/16/2017 11:53:38 PM Matt continues to improve clinically and is now requesting to go home. Repeat ABG has been ordered. 01/17/2017 12:14:14 AM according to the respiratory therapist the patient's blood gas reveals 7.23/42/49 with 79% oxygen saturation. Strongly suspect venous blood gas. (RASHAUN MEDINA,DAVE Quinteros) Departure Departure Disposition: HOME OR SELF CARE Condition: Stable Referrals: WADE MEDINA,TAYLER Reid (PCP/Family) Departure Forms: Customer Survey General Discharge Information Comments 12/19/16 7 PM PATIENT SIGNED OUT TO DR HUNTER (DAVE MATTSON DO) Departure Clinical Impression Primary Impression: San catheter in place Secondary Impressions: Medication side effect, Respiratory insufficiency Additional Instructions: Use your CPAP tonight. Take your medications only as prescribed. Maintained a good fluid intake. Follow-up with your primary care doctor on Thursday. Return if any concerns or sudden worsening. Please note that there might be incidental findings in your evaluation that are unrelated to the current emergency department visit. Please notify your primary care doctor about this emergency department visit in order to obtain and review all of the testing performed so that these incidental findings can be monitored as needed. If you had an x-ray performed, please understand that some fractures may not be seen on the initial set of x-rays. If your symptoms persist you might need a repeat set of x-rays to check for such a fracture. If you had a laceration evaluated, please understand that foreign bodies such as glass or wood may not be visible to the naked eye or on plain x-rays. If the wound becomes red, swollen, increasingly more painful or if there is any drainage from the wound, please have it reevaluated by a physician for the possibility of a retained foreign body. Thank you for choosing the [facility] Emergency Department for your care. It was a pleasure to serve you today. Dave Hunter M.D. [facility] (RASHAUN MEDINA,DAVE Quinteros) Critical Care Note Critical Care Note Critical Care Time: non-applicable (DAVE MATTSON DO)
[2017-01-16 17:36] LABS: ABSOLUTE BASOPHIL COUNT 0 /CUMM (0.0-0.2); ABSOLUTE EOSINOPHIL COUNT 0.3 /CUMM (0.0-0.7); ABSOLUTE LYMPH COUNT 1.5 /CUMM (1.2-3.4); ABSOLUTE MONOCYTE COUNT 0.6 /CUMM (0.10-0.60); BASOPHIL % 0.6 % (0.0-2.0); EOSINOPHIL % 3.6 % (0-5); HEMATOCRIT 33.6 % (42-52); MEAN CORPUSCULAR HGB 29.4 PG (27.0-31.0); MEAN CORPUSCULAR HGB CONC 33.1 G/DL (33.0-37.0); MEAN CORPUSCULAR VOLUME 88.9 FL (80.0-94.0); MEAN PLATELET VOLUME 8.6 FL (7.4-10.4); PLATELET COUNT 243 /CUMM (130-400); RBC DISTRIBUTION WIDTH 13.6 % (11.5-14.5); RED BLOOD CELL CT 3.78 /CUMM (4.70-6.10); WHITE BLOOD CELL COUNT 7.4 /CUMM (4.8-10.8)
--- NOTE | 2017-01-16 20:37 | RADIOLOGY REPORT ---
EXAMINATION: XR PORTABLE CHEST CLINICAL INFORMATION: Pneumonia COMPARISON: Prior chest 12/26/2016. TECHNIQUE: Portable AP view of the chest was obtained. FINDINGS: There is new subtle opacity at the right base which could reflect atelectasis or an evolving infiltrate/pneumonia. Lungs otherwise clear. Cardiac silhouette, mediastinum, and pulmonary vascularity normal. IMPRESSION: Nonspecific opacity at the right base as could reflect atelectasis. Evolving pneumonia cannot be excluded. Continued follow-up as felt clinically necessary.
[2017-01-17 00:24] VITALS: BP 134/61
== END 2017-01-17 00:57 ==
LOC: ERH 16:06
PROVIDERS: Emergency Medicine
DX: R06.89 Other abnormalities of breathing (principal); T50.905A Adverse effect of unspecified drugs, medicaments and biological substances, initial encounter
CPT/HCPCS: 80307; 81001; 87086; 87147; 93005; 93010; 96360; 96361

== ENCOUNTER 2017-01-29 02:51 | Inpatient (IN) | payer OTHER, MEDICARE ==
[~2017-01-29] VITALS: Ht 182.9 cm; Wt 124.7 kg
[2017-01-29 16:04] LABS: ABSOLUTE BASOPHIL COUNT 0 /CUMM (0.0-0.2); ABSOLUTE EOSINOPHIL COUNT 0.1 /CUMM (0.0-0.7); ABSOLUTE GRANULOCYTE CT 7.9 /CUMM (1.4-6.5); ABSOLUTE LYMPH COUNT 0.8 /CUMM (1.2-3.4); ABSOLUTE MONOCYTE COUNT 0.2 /CUMM (0.10-0.60); BASOPHIL % 0 % (0.0-2.0); GRANULOCYTE % 87.9 % (42.2-75.2); MEAN CORPUSCULAR HGB 28.9 PG (27.0-31.0); MEAN CORPUSCULAR HGB CONC 32.7 G/DL (33.0-37.0); MEAN CORPUSCULAR VOLUME 88.4 FL (80.0-94.0); MEAN PLATELET VOLUME 8.3 FL (7.4-10.4); PLATELET COUNT 217 /CUMM (130-400); RBC DISTRIBUTION WIDTH 13.7 % (11.5-14.5); RED BLOOD CELL CT 3.96 /CUMM (4.70-6.10)
--- NOTE | 2017-01-29 16:23 | Operative Report ---
Operative/Inv Procedure Report Surgery Date: 01/29/17 Name of Procedure: Standard TURP with cystoscopy. Pre-Operative Diagnosis: Urinary retention, BPH. Post-Operative Diagnosis: Same Estimated Blood Loss: less than 50ml Surgeon/Aids Social Worker: ELISABETH LORENZO MD Anesthesia: laryngeal mask airway Drains: 22 Icelandic three-way Mcleod catheter with normal saline CBI Specimens: Prostate chips Complications: None Operative/Procedure Note Note: The patient was taken to the operating room and placed on the OR table in supine position. Timeout was performed, with the pt. awake, to correctly identify the patient, anesthesia, procedure, and IV antibiotics, and other pertinent perioperative information. After adequate anesthesia and antibiotics, the old Mcleod catheter was removed. The patient was then placed in lithotomy stirrups using yellowfin stirrups. The patient was then draped and prepped in the usual surgical fashion. A 26 Icelandic standard resectoscope sheath with a 30 angle lens and the 24 Icelandic loop was inserted into the urethra, and then advanced into the bladder without difficulty. A FEW small clots, and bladder stones, were noted in the bladder, and were Ellix evacuated out. With a clearer vision, the prostate was noted to have an irregular and ratty surface with severely coapting lobes. Additionally, the prostate was hypervascular consistent with regrowth. Upon entering the bladder, it was thoroughly and systematically surveyed revealing no evidence of tumor, no evidence of stone, both orifices were difficult to find due to the severe trabeculation, in their orthotopic position with clear yellow reflux. The resectoscope was then retracted to the level of the philly montanum. Under direct visualization the 24 Icelandic loop was then extended beyond the scope. Under direct visualization, and using the cutting current, the left lobe of the prostate was resected from the 2:00 to the 6 o'clock position to the level of the fibromuscular capsule. Using coag current, spot cauterization was performed in order to achieve good hemostasis of the prostate. The loop was then extended once again using cutting current to resect the right side of the prostate from the 10:00 to the 6 o'clock position to the level of the fibromuscular capsule. Spot cauterization using coag current was then performed in order to achieve good hemostasis. Maintaining the position of the resectoscope at the level of the vera montanum the apical tissue was resected as well on both sides. The external sphincter was preserved. The bladder was then re-entered via the resectoscope, and the prostate chips were irrigated out using tumey evacuation. Once all the prostate chips were removed, the bladder was re-evaluating and noted to have no untoward injury. Additionally, the prostate channel was noted to have good hemostasis, with a wide open channel. The resectoscope was removed with the bladder full. A 22 Icelandic couvalier three-way Mcleod catheter was inserted without difficulty draining clear fluid. The bladder was again copiously irrigated via the mcleod to ensure patency/ The 30 mL balloon was then filled, and continuous bladder irrigation with normal saline was initiated. Clear and easy drainage of NS from the main port was confirmed with CBI. All sponge needle and instrument count were correct at the end of the case. The patient tolerated the procedure well and was then taken to the recovery room in satisfactory condition. Findings: Mild regrowth of prostatic tissue to obstruct the prostatic urethra. Discharge Disposition: PACU CC: ELISABETH LORENZO MD
--- NOTE | 2017-01-29 16:34 | Cons- Medical ---
ANNALISE LOPEZ 01/29/17 1634: General Information and HPI Consulting Request Date of Consult: 01/29/17 Requested By: HOWARD JACOBO MD Reason for Consult: Diabetes management Hypertension management Electrolyte management Source of Information: patient, old records Exam Limitations: no limitations History of Present Illness: Mr Fontanez is a 66-year-old gentleman with a PMH of atrial fibrillation on Eliquis, HTN, HLD, CVA, diabetes, ROB, COPD, chronic back pain in the setting of disc herniation, gout, OA, BPH with urinary retention S/P one-month duration San catheter placement who was admitted for cystoscopy and underwent TURP (01/29). There were no complications during his procedure. At this time the patient states that he feels fine and denies any fevers, chills , chest pain, shortness of breath, palpitations, nausea, abdominal pain, discomfort from the San catheter. Allergies/Medications Allergies: Coded Allergies: venom-honey bee (bee venom (honey bee)) (Severe, ANAPHYLAXIS 12/26/16) ibuprofen (Intermediate, KIDNEYS 12/26/16) Home Med List: Amlodipine Besylate 10 MG TABLET 1 TAB PO DAILY HEART/BP (Reported) Apixaban (Eliquis) 5 MG TABLET 1 TAB PO BID BLOOD THINNER (Reported) Atenolol 50 MG TABLET 1 TAB PO BID HEART/BP (Reported) Atorvastatin Calcium (Lipitor) 40 MG TABLET 1 TAB PO DAILY CHOLESTEROL ( Reported) Diltiazem HCl 30 MG TABLET 1 TAB PO BID HEART RATE (Reported) Fluocinolone Acetonide Oil (Dermotic) 0.01 % DROPS 5 GTT OT BID BOTH EARS ( Reported) Gemfibrozil 600 MG TABLET 1 TAB PO BID CHOLESTEROL (Reported) Hydrochlorothiazide 12.5 MG TABLET 1 TAB PO DAILY DIURETIC/BP (Reported) Losartan (Cozaar) 100 MG TABLET 1 TAB PO DAILY hypertension Oxycodone HCl (Oxycontin) 30 MG TAB.ER.12H 1 TAB PO TID PRN PAIN (Reported) Oxycodone HCl/Acetaminophen (Oxycodone-Acetaminophen 10-325) 10 MG-325 MG TABLET 1 TAB PO TID PRN PAIN (Reported) Pioglitazone HCl 45 MG TABLET 1 TAB PO DAILY DM (Reported) Pregabalin (Lyrica) 100 MG CAPSULE 1 CAP PO 6XDAILY PAIN (Reported) Review of Systems Review of Systems Constitutional: Reports: see HPI. EENTM: Reports: no symptoms. Cardiovascular: Reports: no symptoms. Respiratory: Reports: see HPI. GI: Reports: no symptoms. Genitourinary: Reports: see HPI. Musculoskeletal: Reports: no symptoms. 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 spouse Services at Home: None Functional Ability ADLs Independent: dressing, eating, toileting, bathing. Ambulation: walker IADLs Independent: shopping, housework, finances, food prep, telephone, medication admin. Exam & Diagnostic Data Last 24 Hrs of Vital Signs/I&O BP 165/72, HR 57, RR 10, SpO2 93% on 2L NC, T 97.7 Physical Exam General Appearance: no apparent distress, alert, comfortable Head: normal appearance Eyes: Left: EOMI. Ears, Nose, Throat: hearing grossly normal, moist mucus membranes Respiratory: no respiratory distress, lungs clear, Diminished breath sounds in the basilar regions BL Cardiovascular: regular rate/rhythm, normal peripheral pulses Gastrointestinal: normal bowel sounds, soft, non-tender, Abdomen slightly distended Extremities: normal range of motion, 3+ pitting edema BL LE. Skin: Chronic venous stasis changes in bilateral LE around the shins Last 24 Hrs of Labs/Charles: Laboratory Tests 01/29/17 1602: CBC w Diff NO MAN DIFF REQ, RBC 3.96 L, MCV 88.4, MCH 28.9, RDW 13.7, MPV 8.3, Gran % 87.9 H, Lymphocytes % 9.2 L, Monocytes % 1.9, Eosinophils % 1.0, Basophils % 0 L, Absolute Granulocytes 7.9 H, Absolute Lymphocytes 0.8 L, Absolute Monocytes 0.2, Absolute Eosinophils 0.1, Absolute Basophils 0, PUBS MCHC 32.7 L 01/29/17 1500: Anion Gap 12, Estimated GFR > 60, BUN/Creatinine Ratio 18.2 Assessment/Plan Assessment/Plan 66-year-old gentleman with a PMH of atrial fibrillation on Eliquis, HTN, HLD, CVA, diabetes, ROB, COPD, chronic back pain in the setting of disc herniation, gout, OA, BPH with urinary retention S/P one-month duration San catheter placement who was admitted for cystoscopy and underwent TURP (01/29/2017). Vitals: SBP 158-162, DBP 60's, 95% on 4L NC, heart rate in the 50s. Pertinent labs: WBC 9.0, H&H 11.1/33.6, platelets 243K, sodium 132, potassium 4.6, chloride 94, bicarbonate 27, BUN/CR 36/1.9, glucose 146 Problem list: 1. BPH status post cystoscopy with TURP 2. Atrial fibrillation on Eliquis 3. Baseline hyponatremia 4. Hypertension 5. Diabetes 6. ROB 7. Chronic back pain Recommendations: 1. BPH s/p cystoscopy with TURP * Patient will be on continuous bladder irrigation overnight * Continue to monitor for hematuria and notify urology 2. Atrial fibrillation on Eliquis * Holding Eliquis in the setting of potential bleed over the next 12 hours * Monitor for hematuria * Per urology recommendations, will likely restart Eliquis in the a.m. 3. Baseline hyponatremia * Sodium 132 in December. Current sodium is 142 * Repeat electrolytes at 2200 and in the a.m to avoid overcorrection. Will adjust maintenance fluid accordingly patient is currently on NS + 40 M EQ potassium at 75cc/hr 4. Hypertension * We'll continue patient's home medications with parameters to hold for HR less than 60 bpm * Atenolol 50 mg BID (hold for HR less than 60 bpm) * Diltiazem 30 mg BID (hold for HR less than 60 bpm) * Amlodipine 10 mg daily * Losartan 100 mg daily * HCTZ 12.5 mg daily 5. Diabetes * Consistent carbohydrate 3 diet * Low-dose sliding scale * Accu-Cheks TIDAC/QHS 6. ROB * Nocturnal CPAP * Incentive spirometry 7. Chronic back pain * Confirmation from [facility] indicates the following regimen had been prescribed by his pain management provider: * Lyrica 100 mg tabs (2 tabs TID) * OxyContin 30 mg Q8 PRN * Percocet 10/325 mg, 2-3 tabs Q8 PRN 8. DVT prophylaxis * ALPs 9. CODE STATUS * Full code Consult Acknowledgment - Thank you for your consult request. LEX CHAMPAGNE MD 01/29/172111: Assessment/Plan Consult Acknowledgment - Thank you for your consult request. Attending MD Review Statement Attending Statement Attending MD Statement: examined this patient, discuss w/resident/PA/CAR MECHANIC HELPER, agreed w/resident/PA/CAR MECHANIC HELPER, discussed with family, reviewed EMR data (avail), discussed with nursing, amended to note Attending Assessment/Plan: Patient seen and examined. Pleasant 66-year-old male with multiple comorbidities who underwent TURP by Dr. Howard Jacobo earlier on today. He is currently resting comfortably in bed and not in any acute distress. is present at bedside. He has no complaints at present. He is concerned about chronic lower extremity swelling not improving diuretic therapy will on examination he has 2+ pitting edema in lower extremities with chronic erythematous changes. He has no calf tenderness. He has no open wounds. The rest of his physical examination is noncontributory. I agree with the management plan as outlined by the resident above. In addition recommend leg elevation and use of compression wrapping as needed to decrease his lower extremity edema and prevent development of skin breakdown future. His anticoagulation therapy will be resumed once cleared by the urology service.
[2017-01-29 16:35] VITALS: BP 165/72
[2017-01-29 22:59] VITALS: BP 176/78
--- NOTE | 2017-01-30 01:27 | NUR ---
4525 PATIENT ARRIVED TO FLOOR ALERT AND ORIENTED X 3. VITAL SIGNS STABLE. DENIES CHEST PAIN. + PULSES CBI RUNNING. NO DISCOMFORT NOTED BED LOW AND LOCKED. CALL LIGHT WITHIN REACH
--- NOTE | 2017-01-30 06:50 | PN- Medicine Consult ---
See Addendum Assessment/Plan Assessment/Plan Assessment: 66-year-old gentleman with a PMH of atrial fibrillation on Eliquis, HTN, HLD, CVA, diabetes, ROB, COPD, chronic back pain in the setting of disc herniation, gout, OA, BPH with urinary retention S/P one-month duration Mcleod catheter placement who was admitted for cystoscopy and underwent TURP (01/29/2017). Problem list: 1. BPH s/p cystoscopy with TURP 2. Atrial fibrillation on Eliquis 3. Hematuria 4. Constipation 5. Hypertension 6. Diabetes 7. ROB 8. Chronic back pain Plan: Recommendations: 1. BPH s/p cystoscopy with TURP * Episode of hematuria this morning while straining to have a bowel movement * No evidence of adlison blood in the Mcleod bag at this time * Per Dr Jacobo, Mcleod and CBI can be discontinued at this time * He will follow-up around lunchtime to assess for voiding and bleeding * Dr. Jacobo mentions that status post TURP procedures intermittent bleeding can be expected for approximately 1-2 weeks 2. Atrial fibrillation on Eliquis * Holding Eliquis at this time * Per Dr Jacobo, hold eliquis this AM, assess for bleeding after removal of mcleod 3. Baseline hyponatremia * stable thus far * FLuids discontinued * We'll monitor creatinine as well 4. Constipation * We'll start the patient on scheduled bowel regimen this morning with holding for greater than 1 BM in 24 hours 5. Hypertension * We'll continue patient's home medications * Atenolol 50 mg BID (hold for HR less than 60 bpm) * Diltiazem 30 mg BID (hold for HR less than 60 bpm) * Amlodipine 10 mg daily * Losartan 100 mg daily * HCTZ 12.5 mg daily 5. Diabetes * Fingersticks over the past 24 hours: 168 through 342 * Consistent carbohydrate 3 diet * Will increase to medium dose sliding scale * Accu-Cheks TIDAC/QHS 6. ROB * Nocturnal CPAP * Incentive spirometry 7. Chronic back pain * Continue previous regimen as confirmed from [facility] * Lyrica 100 mg tabs (2 tabs TID) * OxyContin 30 mg Q8 PRN * Percocet 10/325 mg, 2-3 tabs Q8 PRN 8. DVT prophylaxis * ALPs 9. CODE STATUS * Full code Problem List: 1. S/P TURP (status post transurethral resection of prostate) 2. Clot hematuria 3. Atrial fibrillation 4. Constipation 5. HTN (hypertension) 6. Diabetes mellitus 7. ROB (obstructive sleep apnea) 8. Chronic back pain Subjective Subjective: Interval history: Mr Fontanez mentions that he slept well through the night. This morning while attempting to strain to have a bowel movement he reports noticing blood coming out the size of the Mcleod catheter. The patient jokes that he is glad it was not "whiskey". He denies any dizziness, blurry vision, chest pain, palpitations, shortness of breath, abdominal pain, fevers or chills prior or during this period. Review of Systems Constitutional: Reports: see HPI. EENTM: Reports: no symptoms. Cardiovascular: Reports: no symptoms. Respiratory: Reports: no symptoms. Gastrointestinal: Reports: see HPI. Genitourinary: Reports: see HPI. Musculoskeletal: Reports: no symptoms. Objective Last 24 Hrs of Vital Signs/I&O Vital Signs Date Time Temp Pulse Resp B/P Pulse O2 O2 Flow FiO2 Ox Delivery Rate 01/30 0720 98.4 63 20 170/68 96 Nasal 3.0L Cannula 01/30 0311 76 98 01/30 0010 75 94 01/29 2259 98.2 74 20 176/78 98 Nasal 3.0L Cannula 01/29 2144 80 170/70 01/29 1839 Nasal 3.0L Cannula 01/29 1635 97.7 57 10 165/72 93 Nasal 3.0L Cannula 01/29 1632 93 Nasal 3.0L Cannula Intake & Output 01/30 0800 01/30 0000 01/29 1600 Intake Total 200 Output Total Balance 200 Intake, Oral 200 Patient 275 lb Weight Physical Exam General Appearance: no apparent distress, alert, comfortable Ears, Nose, Throat: hearing grossly normal, moist mucus membranes Cardiovascular: regular rate/rhythm, edema, normal peripheral pulses Respiratory: normal breath sounds, no respiratory distress, distant breath sounds Abdomen: normal bowel sounds, abdomen is firm to palpation, no tenderness Extremities: bilateral lower extremities wrapped in clean Osmany bandages at this time Other Physical Findings: Mcleod catheter in place currently undergoing CBI. No evidence of bleeding around the site the urethra. There is 1 blood clots in the tubing Current Medications: Current Medications Sig/Donny Start time Last Medication Dose Route Stop Time Status Admin Acetaminophen 1,000 MG .STK-MED ONE 01/29 1325 DC IV 01/29 1326 Al Hydroxide/Mg 30 ML Q6P PRN 01/29 1500 AC Hydroxide PO Amlodipine Besylate 10 MG DAILY 01/30 1000 AC 01/30 PO 0814 Atenolol 50 MG DAILY 01/30 1000 CAN PO Atenolol 50 MG BID 01/29 2200 AC 01/30 PO 0815 Atorvastatin Calcium 40 MG 1700 01/30 1700 AC PO Atorvastatin Calcium 40 MG 1700 01/29 1700 DC PO Ciprofloxacin 500 MG ONCE 01/29 0000 DC PO 01/29 2359 Dexamethasone 4 MG .STK-MED ONE 01/29 1326 DC IM 01/29 1327 Diltiazem HCl 30 MG BID 01/29 2200 AC 01/30 PO 0814 Diltiazem HCl 30 MG BID 01/29 1507 DC PO Docusate Sodium 100 MG DAILY 01/30 1000 AC 01/30 PO 0814 Docusate Sodium 100 MG DAILY NEEDED PRN 01/29 1500 AC PO Fentanyl Citrate 250 MCG .STK-MED ONE 01/29 1353 DC IM 01/29 1354 Fentanyl Citrate 100 MCG .STK-MED ONE 01/29 1325 DC IM 01/29 1326 Folic Acid 1 MG DAILY 01/30 1000 AC 01/30 PO 0814 Gemfibrozil 600 MG BID 01/29 2200 AC 01/30 PO 0814 Hydrochlorothiazide 12.5 MG DAILY 01/30 1000 AC 01/30 PO 0814 Hydromorphone HCl 2 MG .STK-MED ONE 01/29 1545 DC IM 01/29 1546 Hydromorphone HCl 2 MG .STK-MED ONE 01/29 1449 DC IM 01/29 1450 Hydromorphone HCl 2 MG .STK-MED ONE 01/29 1325 DC IM 01/29 1326 Insulin Aspart 0 TIDAC 01/30 0800 CAN SC Insulin Aspart 0 TIDAC 01/30 0800 DC SC Insulin Aspart 0 TIDAC/HS 01/29 2249 AC 01/30 SC 0811 Ketorolac 30 MG .STK-MED ONE 01/29 1325 DC Tromethamine IM 01/29 1326 Losartan Potassium 100 MG DAILY 01/30 1000 AC 01/30 PO 0814 Meperidine HCl 50 MG .STK-MED ONE 01/29 1545 DC IM 01/29 1546 Midazolam HCl 2 MG .STK-MED ONE 01/29 1325 DC IM 01/29 1326 Multivitamins 1 TAB DAILY 01/30 1000 AC 01/30 PO 0815 Nitrofurantoin 100 MG ONCE 01/29 0000 DC PO 01/29 2359 Ondansetron HCl 4 MG .STK-MED ONE 01/29 1326 DC IM 01/29 1327 Oxycodone HCl 30 MG Q8 01/29 1829 AC 01/30 PO 0550 Oxycodone HCl 30 MG TID PRN 01/29 1730 DC 01/29 PO 01/29 1829 1820 Oxycodone/ 2 TAB Q8P PRN 01/29 1829 AC 01/30 Acetaminophen PO 0812 Oxycodone/ 1 TAB TID PRN 01/29 1730 DC 01/29 Acetaminophen PO 1815 Oxycodone/ 2 TAB Q4P PRN 01/29 1545 DC Acetaminophen PO Polyethylene Glycol 17 GM DAILY 01/30 1000 AC PO Potassium Chloride 40 MEQ [id number] 01/29 1500 DC 01/30 Sodium Chloride 1,000 ML IV 0230 Pregabalin 200 MG Q8 01/29 2200 AC 01/30 PO 0550 Senna 187 MG DAILY 01/30 1000 AC PO Results Last 24 Hrs Lab/Charles Results: Laboratory Tests 01/30/17 0615: Sodium Pending, Potassium Pending, Chloride Pending, Carbon Dioxide Pending, Anion Gap Pending, BUN Pending, Creatinine Pending, BUN/Creatinine Ratio Pending , CBC w Diff Pending, WBC Pending, RBC Pending, Hgb Pending, Hct Pending, MCV Pending, MCH Pending, RDW Pending, Plt Count Pending, MPV Pending, PUBS MCHC Pending 01/29/17 2230: Anion Gap 9, Estimated GFR > 60, BUN/Creatinine Ratio 17.5 01/29/17 1602: CBC w Diff NO MAN DIFF REQ, RBC 3.96 L, MCV 88.4, MCH 28.9, RDW 13.7, MPV 8.3, Gran % 87.9 H, Lymphocytes % 9.2 L, Monocytes % 1.9, Eosinophils % 1.0, Basophils % 0 L, Absolute Granulocytes 7.9 H, Absolute Lymphocytes 0.8 L, Absolute Monocytes 0.2, Absolute Eosinophils 0.1, Absolute Basophils 0, PUBS MCHC 32.7 L 01/29/17 1500: Anion Gap 12, Estimated GFR > 60, BUN/Creatinine Ratio 18.2
[2017-01-30 07:20] VITALS: BP 170/68
[2017-01-30 08:08] LABS: ABSOLUTE BASOPHIL COUNT 0 /CUMM (0.0-0.2); ABSOLUTE EOSINOPHIL COUNT 0 /CUMM (0.0-0.7); ABSOLUTE GRANULOCYTE CT 11.3 /CUMM (1.4-6.5); ABSOLUTE LYMPH COUNT 1.5 /CUMM (1.2-3.4); ABSOLUTE MONOCYTE COUNT 0.6 /CUMM (0.10-0.60); BASOPHIL % 0.2 % (0.0-2.0); EOSINOPHIL % 0 % (0-5); HEMATOCRIT 35.5 % (42-52); MEAN CORPUSCULAR HGB 29.3 PG (27.0-31.0); MEAN CORPUSCULAR HGB CONC 33.2 G/DL (33.0-37.0); MEAN CORPUSCULAR VOLUME 88.1 FL (80.0-94.0); MEAN PLATELET VOLUME 9.1 FL (7.4-10.4); PLATELET COUNT 270 /CUMM (130-400); RBC DISTRIBUTION WIDTH 13.8 % (11.5-14.5); RED BLOOD CELL CT 4.03 /CUMM (4.70-6.10); WHITE BLOOD CELL COUNT 13.4 /CUMM (4.8-10.8)
[2017-01-30 09:19] LABS: GRANULOCYTE % 83.8 % (42.2-75.2)
--- NOTE | 2017-01-30 12:24 | Cons- Cardiology ---
General Information and HPI Consulting Request Date of Consult: 01/30/17 Requested By: ELISABETH LORENZO MD Reason for Consult: Atrial fibrillation; assistance with anticoagulation Source of Information: patient, old records History of Present Illness: The patient is a 66-year-old white male who is well-known to me with multiple medical issues. He has recently had a urologic procedure performed and is off of his anticoagulation. I was asked see the patient for cardiology input with respect to holding his anticoagulation for another 4-5 days prior to reinstitution of his anticoagulation due to the recent procedure. Otherwise, from a cardiac standpoint, the patient appears stable. He denies any symptoms. He appears well and appears to have tolerated the procedure without difficulty. Allergies/Medications Allergies: Coded Allergies: venom-honey bee (bee venom (honey bee)) (Severe, ANAPHYLAXIS 12/26/16) ibuprofen (Intermediate, KIDNEYS 12/26/16) Home Med List: Amlodipine Besylate 10 MG TABLET 1 TAB PO DAILY HEART/BP (Reported) Atenolol 50 MG TABLET 1 TAB PO BID HEART/BP (Reported) Atorvastatin Calcium (Lipitor) 40 MG TABLET 1 TAB PO DAILY CHOLESTEROL ( Reported) Diltiazem HCl 30 MG TABLET 1 TAB PO BID HEART RATE (Reported) Fluocinolone Acetonide Oil (Dermotic) 0.01 % DROPS 5 GTT OT BID BOTH EARS ( Reported) Gemfibrozil 600 MG TABLET 1 TAB PO BID CHOLESTEROL (Reported) Hydrochlorothiazide 12.5 MG TABLET 1 TAB PO DAILY DIURETIC/BP (Reported) Losartan (Cozaar) 100 MG TABLET 1 TAB PO DAILY hypertension Oxycodone HCl (Oxycontin) 30 MG TAB.ER.12H 1 TAB PO TID PRN PAIN (Reported) Oxycodone HCl/Acetaminophen (Oxycodone-Acetaminophen 10-325) 10 MG-325 MG TABLET 1 TAB PO TID PRN PAIN (Reported) Pioglitazone HCl 45 MG TABLET 1 TAB PO DAILY DM (Reported) Pregabalin (Lyrica) 100 MG CAPSULE 1 CAP PO 6XDAILY PAIN (Reported) Current Medications: Current Medications Sig/Donny Start time Last Medication Dose Route Stop Time Status Admin Acetaminophen 1,000 MG .STK-MED ONE 01/29 1325 DC IV 01/29 1326 Al Hydroxide/Mg 30 ML Q6P PRN 01/29 1500 AC Hydroxide PO Amlodipine Besylate 10 MG DAILY 01/30 1000 AC 04/07 PO 0814 Atenolol 50 MG DAILY 01/30 1000 CAN PO Atenolol 50 MG BID 01/29 2200 AC 01/30 PO 0815 Atorvastatin Calcium 40 MG 1700 01/30 1700 AC PO Atorvastatin Calcium 40 MG 1700 01/29 1700 DC PO Bisacodyl 10 MG ONCE ONE 01/30 1115 DC NV 01/30 1116 Ciprofloxacin 500 MG ONCE 01/29 0000 DC PO 01/29 2359 Dexamethasone 4 MG .STK-MED ONE 01/29 1326 DC IM 01/29 1327 Diltiazem HCl 30 MG BID 01/29 2200 AC 01/30 PO 0814 Diltiazem HCl 30 MG BID 01/29 1507 DC PO Docusate Sodium 100 MG DAILY 01/30 1000 AC 01/30 PO 0814 Docusate Sodium 100 MG DAILY NEEDED PRN 01/29 1500 AC PO Fentanyl Citrate 250 MCG .STK-MED ONE 01/29 1353 DC IM 01/29 1354 Fentanyl Citrate 100 MCG .STK-MED ONE 01/29 1325 DC IM 01/29 1326 Folic Acid 1 MG DAILY 01/30 1000 AC 01/30 PO 0814 Gemfibrozil 600 MG BID 01/29 2200 AC 01/30 PO 0814 Hydrochlorothiazide 12.5 MG DAILY 01/30 1000 AC 01/30 PO 0814 Hydromorphone HCl 2 MG .STK-MED ONE 01/29 1545 DC IM 01/29 1546 Hydromorphone HCl 2 MG .STK-MED ONE 01/29 1449 DC IM 01/29 1450 Hydromorphone HCl 2 MG .STK-MED ONE 01/29 1325 DC IM 01/29 1326 Insulin Aspart 0 TIDAC 01/30 0800 CAN SC Insulin Aspart 0 TIDAC 01/30 0800 DC SC Insulin Aspart 0 TIDAC/HS 01/29 2249 AC 01/30 SC 0811 Ketorolac 30 MG .STK-MED ONE 01/29 1325 DC Tromethamine IM 01/29 1326 Losartan Potassium 100 MG DAILY 01/30 1000 AC 01/30 PO 0814 Meperidine HCl 50 MG .STK-MED ONE 01/29 1545 DC IM 01/29 1546 Midazolam HCl 2 MG .STK-MED ONE 01/29 1325 DC IM 01/29 1326 Multivitamins 1 TAB DAILY 01/30 1000 AC 01/30 PO 0815 Nitrofurantoin 100 MG ONCE 01/29 0000 DC PO 01/29 2359 Ondansetron HCl 4 MG .STK-MED ONE 01/29 1326 DC IM 01/29 1327 Oxycodone HCl 30 MG Q8 01/29 1829 AC 01/30 PO 0550 Oxycodone HCl 30 MG TID PRN 01/29 1730 DC 01/29 PO 01/29 1829 1820 Oxycodone/ 2 TAB Q8P PRN 01/29 1829 AC 01/30 Acetaminophen PO 0812 Oxycodone/ 1 TAB TID PRN 01/29 1730 DC 01/29 Acetaminophen PO 1815 Oxycodone/ 2 TAB Q4P PRN 01/29 1545 DC Acetaminophen PO Polyethylene Glycol 17 GM DAILY 01/30 1000 AC 01/30 PO 1104 Potassium Chloride 40 MEQ .[id number] 01/29 1500 DC 01/30 Sodium Chloride 1,000 ML IV 0230 Pregabalin 200 MG Q8 01/29 2200 AC 01/30 PO 0550 Senna 187 MG DAILY 01/30 1000 AC 01/30 PO 1104 Past History Medical History Blood Transfusion Hx: No Neurological: TIA X 2 EENT: hearing loss, rhinitis Cardiovascular: AFIB, hypertension, hyperlipidemia Respiratory: obstructive sleep apnea, pneumonia, USES CPAP Gastrointestinal: constipation, hiatal hernia Hepatic: NONE Renal: chronic kidney disease, "SHUT DOWN ONCE" 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 Home Who Do You Live With? spouse Services at Home: None Smoking Status: Former Smoker Functional Ability ADLs Independent: dressing, eating, toileting, bathing. Ambulation: walker IADLs Independent: shopping, housework, finances, food prep, telephone, medication admin. ECHO Results (as available) Report: CONCLUSIONS 1. Moderate aortic sclerosis is present with minimal aortic insufficiency. 2. Mitral leaflet thickening is present with mild mitral insufficiency and mild to moderate left atrial dilatation. 3. The left atrial appendage is multilobed with no evidence of thrombus. 4. The pulmonary venous anatomy is normal bilaterally. 5. The left ventricular chamber size and systolic function appear normal. LVH is present. 6. Mild dilatation of the right heart chambers is presnet with mild tricuspid and pulmonic insufficiency. 7. The atrial septum appear anatomically intact. By agitated contrast saline injection, there is a tiny resting right to left shunt present consistent with a PFO. 8. Grade II atheromatous plaque is present in the thoracic aorta. 9. A focal abnormal echodensity is present in the anterior aspect of the ascending aorta which is most consistent with artifact. There is also an illdefined echodensity in the posterior aspect of the distal arch which may represent focal non calcific plaque or artifact. A follow up study ( CTA ) is suggested to reassess the anatomy of the thoracic aorta. Immediately following the MAYELA, while still under Propofol anesthesia, the patient was placed in the supine position. 200 joules of synchronized energy was administered and the patient promptly reverted to NSR. THe patient woke from anesthesia in stable condition with no evidence of complications. The patient was discharged home in stable condition. Exam & Diagnostic Data Vital Signs and I&O Vital Signs Date Time Temp Pulse Resp B/P Pulse O2 O2 Flow FiO2 Ox Delivery Rate 01/30 1419 98.2 64 20 160/72 96 01/30 0814 75 170/68 01/30 0814 75 170/68 01/30 0814 75 170/68 01/30 0800 96 Nasal 3.0L Cannula 01/30 0720 98.4 63 20 170/68 96 Nasal 3.0L Cannula 01/30 0311 76 98 01/30 0010 75 94 01/30 0000 98 Nasal 3.0L Cannula 01/29 2259 98.2 74 20 176/78 98 Nasal 3.0L Cannula 01/29 2144 80 170/70 Intake & Output 01/30 1600 01/30 0801/30 0000 01/29 1600 01/29 0801/29 0000 Intake Total 675 1920 200 Output Total 500 Balance 175 1920 200 Intake, IV 75 600 Intake, Oral 600 1320 200 Output, Urine 500 Patient 275 lb Weight Labs/Charles Results: Laboratory Tests 01/30 01/29 0615 2230 Chemistry Sodium (137 - 145 mmol/L) 138 137 Potassium (3.5 - 5.1 mmol/L) 4.7 4.5 Chloride (98 - 107 mmol/L) 101 100 Carbon Dioxide (22 - 30 mmol/L) 25 29 Anion Gap (5 - 16) 13 9 BUN (9 - 20 mg/dL) 19 21 H Creatinine (0.7 - 1.2 mg/dL) 1.1 1.2 Estimated GFR (>60 ml/min) > 60 > 60 BUN/Creatinine Ratio (7 - 25 %) 17.3 17.5 Hematology CBC w Diff NO MAN DIFF REQ WBC (4.8 - 10.8 /CUMM) 13.4 H RBC (4.70 - 6.10 /CUMM) 4.03 L Hgb (14.0 - 18.0 G/DL) 11.8 L Hct (42 - 52 %) 35.5 L MCV (80.0 - 94.0 FL) 88.1 MCH (27.0 - 31.0 PG) 29.3 RDW (11.5 - 14.5 %) 13.8 Plt Count (130 - 400 /CUMM) 270 MPV (7.4 - 10.4 FL) 9.1 Gran % (42.2 - 75.2 %) 83.8 H Lymphocytes % (20.5 - 51.1 %) 11.2 L Monocytes % (1.7 - 9.3 %) 4.8 Eosinophils % (0 - 5 %) 0 Basophils % (0.0 - 2.0 %) 0.2 Absolute Granulocytes (1.4 - 6.5 /CUMM) 11.3 H Absolute Lymphocytes (1.2 - 3.4 /CUMM) 1.5 Absolute Monocytes (0.10 - 0.60 /CUMM) 0.6 Absolute Eosinophils (0.0 - 0.7 /CUMM) 0 Absolute Basophils (0.0 - 0.2 /CUMM) 0 PUBS MCHC (33.0 - 37.0 G/DL) 33.2 04/06 04/06 1602 1500 Chemistry Sodium (137 - 145 mmol/L) 142 Potassium (3.5 - 5.1 mmol/L) 4.3 Chloride (98 - 107 mmol/L) 103 Carbon Dioxide (22 - 30 mmol/L) 27 Anion Gap (5 - 16) 12 BUN (9 - 20 mg/dL) 20 Creatinine (0.7 - 1.2 mg/dL) 1.1 Estimated GFR (>60 ml/min) > 60 BUN/Creatinine Ratio (7 - 25 %) 18.2 Hematology CBC w Diff NO MAN DIFF REQ WBC (4.8 - 10.8 /CUMM) 9.0 RBC (4.70 - 6.10 /CUMM) 3.96 L Hgb (14.0 - 18.0 G/DL) 11.5 L Hct (42 - 52 %) 35.0 L MCV (80.0 - 94.0 FL) 88.4 MCH (27.0 - 31.0 PG) 28.9 RDW (11.5 - 14.5 %) 13.7 Plt Count (130 - 400 /CUMM) 217 MPV (7.4 - 10.4 FL) 8.3 Gran % (42.2 - 75.2 %) 87.9 H Lymphocytes % (20.5 - 51.1 %) 9.2 L Monocytes % (1.7 - 9.3 %) 1.9 Eosinophils % (0 - 5 %) 1.0 Basophils % (0.0 - 2.0 %) 0 L Absolute Granulocytes (1.4 - 6.5 /CUMM) 7.9 H Absolute Lymphocytes (1.2 - 3.4 /CUMM) 0.8 L Absolute Monocytes (0.10 - 0.60 /CUMM) 0.2 Absolute Eosinophils (0.0 - 0.7 /CUMM) 0.1 Absolute Basophils (0.0 - 0.2 /CUMM) 0 PUBS MCHC (33.0 - 37.0 G/DL) 32.7 L Assessment/Plan Assessment/Plan Assessment: 1. BPH, status post TURP 2. Atrial for ablation 2. Hypertension 4. Hyperlipidemia 5. Obstructive sleep apnea 6. History of prior TIA Recommendations: -For now, the patient appears stable from a cardiac standpoint. -I would continue the patient's regular medicines as outlined. -The patient's anticoagulation is currently on hold due to the recent procedure. If it is okay with urology, I would consider restarting the patient's anticoagulation on February 03. -In view of the patient's arrhythmia and history of prior TIA, there is a small but finite risk and holding his anticoagulation. The patient understands this and I believe the above schedule we will be safe and appropriate. -Otherwise, the patient will follow-up with me as an outpatient. Consult Acknowledgment - Thank you for your consult request.
--- NOTE | 2017-01-30 14:03 | Patient Discharge Instructions ---
Discharge Instructions General Discharge Information You were seen/treated for: Enlarged prostate with urinary retention You had these procedures: Transurethral resection of the prostate (TURP) Watch for these problems: Bloody urine, dizziness, blurred vision, slurred speech, choking Special Instructions: Please follow up with your urologist Dr Jacobo on when to restart your blood thinner Eliquis!!!!! Please follow up with your PCP within 1 week after discharge on your blood pressure management. We have stopped your prostate medications. Diet Recommended Diet: Diabetic, Regular Activity Activity Self Limited: Yes Acute Coronary Syndrome Inclusion Criteria At DC or during hospital stay patient has or had the following: ACS DIAGNOSIS No Discharge Core Measures Meds if any: Prescribed or Continued at Discharge Meds if any: NOT Prescribed or Continued at Discharge Congestive Heart Failure Inclusion Criteria At DC or during hospital stay patient has or had the following: CHF DIAGNOSIS No Discharge Core Measures Meds if any: Prescribed or Continued at Discharge Meds if any: NOT Prescribed or Continued at Discharge Cerebrovascular accident Inclusion Criteria At DC or during hospital stay patient has or had the following: CVA/TIA Diagnosis No Discharge Core Measures Meds if any: Prescribed or Continued at Discharge Meds if any: NOT Prescribed or Continued at Discharge Venous thromboembolism Inclusion Criteria VTE Diagnosis No VTE Type NONE VTE Confirmed by (Test) NONE Discharge Core Measures - Per Current guidelines, there needs to be overlap - treatment for the first 5 days of Warfarin therapy. - If discharged on Warfarin prior to 5 days of - overlap therapy, the patient will need to be - assessed for post discharge needs including - *Post discharge parental anticoagulation - *Warfarin and/or parental anticoagulation education - *Follow up date to check INR post discharge At least 5 days overlap therapy as Inpatient No Meds if any: Prescribed or Continued at Discharge Note: Overlap Therapy is Warfarin and Anticoagulant Meds if any: NOT Prescribed or Continued at Discharge
[2017-01-30 14:19] VITALS: BP 160/72
--- NOTE | 2017-02-04 10:42 | Surgical Discharge Summary ---
Visit Information Visit Dates Admission Date: 01/29/17 Discharge Date: 01/30/17 History of Present Illness Chief Complaint: pt with bph: admitted for post-op cbi. 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 Home Who Do You Live With? Spouse Services at Home: None What is Your Primary Language? Romanian Review of Systems: nc X 12: [place] for home Hospital Course Course Attending Physician: ELISABETH LORENZO MD Primary Care Physician: TAYLER OLVERA MD Hospital Course: required standard TURP and CBI post operatively. clear outflow on discharge and pt stable. Complications: none Allergies: Coded Allergies: venom-honey bee (bee venom (honey bee)) (Severe, ANAPHYLAXIS 12/26/16) ibuprofen (Intermediate, KIDNEYS 12/26/16) Significant Procedures: turp Disposition Summary Disposition Principal Diagnosis: bph: urinary retention Additional Diagnosis: same Discharge Disposition: home or self care Discharge Instructions General Discharge Information Code Status: Full Code Patient's Diet: regular Patient's Activity: as tolerated: encouraged to ambulate QID and daily shower Follow-Up Instructions/Appts: f/u 1 week for voiding trial. Medications at Discharge Discharge Medications: Stop taking the following medications: Tamsulosin HCl (Flomax) 0.4 MG CAP.ER.24H ORAL DAILY Qty = 15 Apixaban (Eliquis) 5 MG TABLET ORAL TWICE DAILY Finasteride (Finasteride) (Unknown Strength) TABLET Qty = 90 Ciprofloxacin HCl (Cipro) 500 MG TABLET ORAL TWICE DAILY Qty = 14 Continue taking these medications: Diltiazem HCl (Diltiazem HCl) 30 MG TABLET 1 Tablet ORAL TWICE DAILY Comments: Last Taken:01/30/17 Time:814 Atorvastatin Calcium (Lipitor) 40 MG TABLET 1 Tablet ORAL DAILY Comments: Last Taken:NOT GIVEN IN HOSPITAL Time: Amlodipine Besylate (Amlodipine Besylate) 10 MG TABLET 1 Tablet ORAL DAILY Comments: Last Taken:01/30/17 Time:814 Atenolol (Atenolol) 50 MG TABLET 1 Tablet ORAL TWICE DAILY Qty = 180 Comments: Last Taken: 01/30/17 Time: 814 Gemfibrozil (Gemfibrozil) 600 MG TABLET 1 Tablet ORAL TWICE DAILY Qty = 180 Comments: Last Taken: 01/30/17 Time: 814 Losartan (Cozaar) 100 MG TABLET 1 Tablet ORAL DAILY Qty = 30 Comments: Last Taken:01/30/17 Time:814 Hydrochlorothiazide (Hydrochlorothiazide) 12.5 MG TABLET 1 Tablet ORAL DAILY Qty = 90 Comments: Last Taken:01/30/17 Time:814 Pioglitazone HCl (Pioglitazone HCl) 45 MG TABLET 1 Tablet ORAL DAILY Qty = 45 Comments: Last Taken:NOT GIVEN IN HOSPITAL Time: Oxycodone HCl/Acetaminophen (Oxycodone-Acetaminophen 10-325) 10 MG-325 MG TABLET 1 Tablet ORAL THREE TIMES DAILY as needed for PAIN Qty = 75 Comments: Last Taken:01/30/17 Time: 1 PM Oxycodone HCl (Oxycontin) 30 MG TAB.ER.12H 1 Tablet ORAL THREE TIMES DAILY as needed for PAIN Qty = 90 Comments: Last Taken:01/30/17 Time:2:30 PM Pregabalin (Lyrica) 100 MG CAPSULE 1 Capsule ORAL 6XDAILY Qty = 180 Comments: Last Taken:01/30/17 Time:2:30 PM Fluocinolone Acetonide Oil (Dermotic) 0.01 % DROPS 5 Drop OTIC TWICE DAILY Qty = 20 Comments: Last Taken:NOT GIVEN IN HOSPITAL Time: Copies To: BJ MEDINA,ELISABETH Attending MD Review Statement Attending Statement Attending MD Statement: examined this patient Attending Assessment/Plan: post turp stable and clear outflow-dc home
== END 2017-01-30 16:45 | DRG 714 ==
LOC: ENRESERVTM → ENRESERVDT → STS 02:51 → PACUH 14:46 → 2NA 14:46
PROVIDERS: Internal Medicine; ADMIT Urology
PROC: 0VT08ZZ Resection of Prostate, Via Natural or Artificial Opening Endoscopic (ICD-10-PCS; principal; 2017-01-29)
PROC: 0TJB8ZZ Inspection of Bladder, Via Natural or Artificial Opening Endoscopic (ICD-10-PCS; 2017-01-29)
DX: N40.1 Benign prostatic hyperplasia with lower urinary tract symptoms (principal); E11.22 Type 2 diabetes mellitus with diabetic chronic kidney disease; I48.91 Unspecified atrial fibrillation; E66.9 Obesity, unspecified; Z68.37 Body mass index [BMI] 37.0-37.9, adult; Z79.01 Long term (current) use of anticoagulants; I12.9 Hypertensive chronic kidney disease with stage 1 through stage 4 chronic kidney disease, or unspecified chronic kidney disease; N18.3 Chronic kidney disease, stage 3 (moderate); E78.5 Hyperlipidemia, unspecified; Z86.73 Personal history of transient ischemic attack (TIA), and cerebral infarction without residual deficits; M54.9 Dorsalgia, unspecified
CPT/HCPCS: 2NASP; 36415; 82436; 88305; C9399; J0131; J1100; J1885; J2405; J3490

== ENCOUNTER 2017-02-06 22:45 | Emergency (ER) | payer OTHER, MEDICARE ==
[~2017-02-06] VITALS: Ht 182.9 cm; Wt 124.7 kg
[2017-02-06 23:26] VITALS: BP 167/70
--- NOTE | 2017-02-07 | ED GI/GU/ABDOMINAL COMPLAINT ---
History of Present Illness General Chief Complaint: Male Genitourinary Problems Stated Complaint: HEMATURIA Source: patient Exam Limitations: no limitations Vital Signs & Intake/Output Vital Signs & Intake/Output Vital Signs Date Time Temp Pulse Resp B/P Pulse O2 O2 Flow FiO2 Ox Delivery Rate 02/07 0022 Room Air 02/06 2326 98.3 96 18 167/70 96 Room Air ED Intake and Output 02/07 0000 02/06 1200 Intake Total Output Total Balance Patient 275 lb Weight Allergies Coded Allergies: venom-honey bee (bee venom (honey bee)) (Severe, ANAPHYLAXIS 12/26/16) ibuprofen (Intermediate, KIDNEYS 12/26/16) Reconcile Medications Amlodipine Besylate 10 MG TABLET 1 TAB PO DAILY HEART/BP (Reported) Atenolol 50 MG TABLET 1 TAB PO BID HEART/BP (Reported) Atorvastatin Calcium (Lipitor) 40 MG TABLET 1 TAB PO DAILY CHOLESTEROL ( Reported) Ciprofloxacin HCl (Cipro) 500 MG TABLET 1 TAB PO BID UTI Diltiazem HCl 30 MG TABLET 1 TAB PO BID HEART RATE (Reported) Fluocinolone Acetonide Oil (Dermotic) 0.01 % DROPS 5 GTT OT BID BOTH EARS ( Reported) Gemfibrozil 600 MG TABLET 1 TAB PO BID CHOLESTEROL (Reported) Hydrochlorothiazide 12.5 MG TABLET 1 TAB PO DAILY DIURETIC/BP (Reported) Losartan (Cozaar) 100 MG TABLET 1 TAB PO DAILY hypertension Oxycodone HCl (Oxycontin) 30 MG TAB.ER.12H 1 TAB PO TID PRN PAIN (Reported) Oxycodone HCl/Acetaminophen (Oxycodone-Acetaminophen 10-325) 10 MG-325 MG TABLET 1 TAB PO TID PRN PAIN (Reported) Pioglitazone HCl 45 MG TABLET 1 TAB PO DAILY DM (Reported) Pregabalin (Lyrica) 100 MG CAPSULE 1 CAP PO 6XDAILY PAIN (Reported) Triage Note: RECEIVED 66 YO MALE S/P TURP LAST THURSDAY. PT REPORTS HEMATURIA STARTED TONITE. PT ALSO REPORTS LEFT FLANK AREA PAIN STARTED TONITE. SOME BURNING WITH URINATION AND DISCOMFORT TO PENIS Triage Nurses Notes Reviewed? yes Onset: Abrupt Duration: hour(s): Timing: single episode today Quality/Severity: hematuria Location: hematuria, painless Radiation: no radiation Activities at Onset: s/p partial turp 1 week ago Prior Abdominal Problems: similar symptoms Modifying Factors: Worsens With: other (urination). Associated Symptoms: hematuria HPI: 66 yo gentleman s/p partial TURP 7 days ago, presents with hematuria since this afternoon. He notes that he saw had dark blood mixed with his urine, and a few clots. It has been intermittent and painless. He has no fever chills nausea vomiting diarrhea. He states that he can complete his voiding without pain discomfort or other problem. He states that the surgery last week was uneventful. He was given several days of antibiotics but was told to stop. He is otherwise well. Past History Travel History Traveled to [place] past 21 day No Medical History Any Pertinent Medical History? 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 No Review of Systems Review of Systems Constitutional: Reports: no symptoms. EENTM: Reports: no symptoms. Respiratory: Reports: no symptoms. Cardiovascular: Reports: no symptoms. GI: Reports: no symptoms. Genitourinary: Reports: no symptoms. Musculoskeletal: Reports: no symptoms. Skin: Reports: no symptoms. Neurological/Psychological: Reports: no symptoms. Hematologic/Endocrine: Reports: no symptoms. Immunologic/Allergic: Reports: no symptoms. All Other Systems: Reviewed and Negative Physical Exam Physical Exam General Appearance: well developed/nourished, no apparent distress, alert, comfortable Head: atraumatic, normal appearance Eyes: Bilateral: normal appearance. Ears, Nose, Throat, Mouth: hearing grossly normal Neck: normal inspection, supple, full range of motion Respiratory: normal breath sounds, chest non-tender, no respiratory distress, quiet respiration, lungs clear Cardiovascular: regular rate/rhythm Gastrointestinal: normal bowel sounds, soft, non-tender, no organomegaly Back: normal inspection, normal range of motion Extremities: normal range of motion Neurologic/Psych: no motor/sensory deficits, awake, alert, oriented x 3 Skin: intact, normal color, warm/dry Core Measures ACS in differential dx? No Severe Sepsis Present: No Septic Shock Present: No Progress Differential Diagnosis: postop bleeding versus prostatitis versus other Plan of Care: Orders Procedure Date/time Status URINALYSIS 02/06 2301 Complete Laboratory Tests 02/06/17 2315: Urine Color PINK H, Urine Clarity HAZY H, Urine pH 6.0, Ur Specific [place] 1.020, Urine Protein >=300 H, Urine Ketones NEG, Urine Nitrite NEG, Urine Bilirubin NEG, Urine Urobilinogen 0.2, Ur Leukocyte Esterase TRACE H, Ur Microscopic SEDIMENT EXAMINED, Urine RBC >75 H, Urine WBC 15-25 H, Ur Epithelial Cells RARE, Urine Bacteria FEW H, Urine Hemoglobin LARGE H, Urine Glucose NEG Initial ED EKG: none Departure Departure Disposition: HOME OR SELF CARE Condition: Stable Clinical Impression Primary Impression: Hematuria Secondary Impressions: Post-op bleeding Referrals: WADE MEDINA,TAYLER Reid (PCP/Family) Departure Forms: Customer Survey General Discharge Information Prescriptions: Current Visit Scripts Ciprofloxacin HCl (Cipro) 1 TAB PO BID #14 TAB Comments discussed at length... pt has no trouble voiding... otherwise well... will re- start his abx, emphasized fluid intake. pt to return if not feeling better, difficulty voiding... will follow up with dr. brian on thursday
[2017-02-07] MEDS ORDERED: CIPRO500 M1 PO (00:07)
== END 2017-02-07 00:22 ==
LOC: ERH 22:45
DX: R31.9 Hematuria, unspecified (principal)
CPT/HCPCS: 81001

== ENCOUNTER 2017-02-12 22:49 | Emergency (ER) | payer OTHER, MEDICARE ==
[~2017-02-12] VITALS: Ht 182.9 cm; Wt 127.9 kg
[~2017-02-12 22:49] MED LIST changes: -HYDROMORPHONE HC8 M1 PO; -MYRBETRIQ50 M1 PO; -NUPERCAINAL56.7 GM TOP; -OXYCONTIN20 M1 PO; -PROSCAR5 M1 PO
--- NOTE | 2017-02-13 00:33 | ED GI/GU/ABDOMINAL COMPLAINT ---
History of Present Illness General Chief Complaint: General Adult Stated Complaint: "THINK SAN ISNT IN RIGHT" PER PT Source: patient, family, old records Exam Limitations: no limitations Vital Signs & Intake/Output Vital Signs & Intake/Output Vital Signs Date Time Temp Pulse Resp B/P B/P Pulse O2 O2 Flow FiO2 Mean Ox Delivery Rate 02/12 2255 97.4 76 18 160/73 100 Room Air ED Intake and Output 02/13 0000 02/12 1200 Intake Total Output Total Balance Patient 282 lb Weight Weight Reported by Patient Measurement Method Allergies Coded Allergies: venom-honey bee (bee venom (honey bee)) (Severe, ANAPHYLAXIS 12/26/16) ibuprofen (Intermediate, KIDNEYS 12/26/16) Reconcile Medications Amlodipine Besylate 10 MG TABLET 1 TAB PO DAILY HEART/BP (Reported) Atenolol 50 MG TABLET 1 TAB PO BID HEART/BP (Reported) Atorvastatin Calcium (Lipitor) 40 MG TABLET 1 TAB PO DAILY CHOLESTEROL ( Reported) Ciprofloxacin HCl (Cipro) 500 MG TABLET 1 TAB PO BID UTI Diltiazem HCl 30 MG TABLET 1 TAB PO BID HEART RATE (Reported) Fluocinolone Acetonide Oil (Dermotic) 0.01 % DROPS 5 GTT OT BID BOTH EARS ( Reported) Gemfibrozil 600 MG TABLET 1 TAB PO BID CHOLESTEROL (Reported) Hydrochlorothiazide 12.5 MG TABLET 1 TAB PO DAILY DIURETIC/BP (Reported) Losartan (Cozaar) 100 MG TABLET 1 TAB PO DAILY hypertension Oxycodone HCl (Oxycontin) 30 MG TAB.ER.12H 1 TAB PO TID PRN PAIN (Reported) Oxycodone HCl/Acetaminophen (Oxycodone-Acetaminophen 10-325) 10 MG-325 MG TABLET 1 TAB PO TID PRN PAIN (Reported) Pioglitazone HCl 45 MG TABLET 1 TAB PO DAILY DM (Reported) Pregabalin (Lyrica) 100 MG CAPSULE 1 CAP PO 6XDAILY PAIN (Reported) Triage Note: PT TO ED FOR A LEAKING SAN. Triage Nurses Notes Reviewed? yes Onset: Afternoon Duration: hour(s):, constant, continues in ED Timing: recent history Quality/Severity: burning, fullness, severe Location: suprapubic, urethral Radiation: no radiation Activities at Onset: none Prior Abdominal Problems: none Past Sexual History: Unobtainable at this time Modifying Factors: Worsens With: palpation. Associated Symptoms: rash HPI: Several hours prior to admission patient had cystoscopy for postoperative bleeding. Since this time he said decreased urine output to the drainage bag with leaking urine from the tip of his penis and lower abdominal distension. He also complains of pain about the uretheral meatus. There's been no fever chills nausea vomiting diarrhea chest pain cough bleeding. Past History Travel History Traveled to [place] past 21 day No Medical History Any Pertinent Medical History? 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 No Review of Systems Review of Systems Constitutional: Reports: no symptoms. EENTM: Reports: no symptoms. Respiratory: Reports: no symptoms. Cardiovascular: Reports: no symptoms. GI: Reports: no symptoms. Genitourinary: Reports: see HPI, pain. Musculoskeletal: Reports: no symptoms. Skin: Reports: no symptoms. Neurological/Psychological: Reports: no symptoms. Hematologic/Endocrine: Reports: no symptoms. Immunologic/Allergic: Reports: no symptoms. All Other Systems: Reviewed and Negative Physical Exam Physical Exam General Appearance: well developed/nourished, alert, awake, anxious, severe distress, obese Head: atraumatic, normal appearance Eyes: Bilateral: normal appearance, PERRL, EOMI, normal inspection. Ears, Nose, Throat, Mouth: hearing grossly normal, moist mucous membrane Neck: normal inspection, supple, full range of motion, normal alignment Respiratory: normal breath sounds, chest non-tender, no respiratory distress, quiet respiration, lungs clear Cardiovascular: regular rate/rhythm, normal peripheral pulses, norml femoral pulses equa Peripheral Pulses: 4+ carotid (R), 4+ carotid (L) Gastrointestinal: normal bowel sounds, soft, non-tender, no organomegaly Male Genitals: coronal erythema tenderness Back: normal inspection, normal range of motion Extremities: normal range of motion, no ligament instability Neurologic/Psych: no motor/sensory deficits, awake, alert, oriented x 3, normal gait, normal mood/affect, dip filler II-XII nml as tested Skin: intact, rash Core Measures ACS in differential dx? No Severe Sepsis Present: No Septic Shock Present: No Progress Differential Diagnosis: urinary retention Plan of Care: Current Medications Sig/Donny Start time Last Medication Dose Stop Time Status Admin Lidocaine 2 CASA ONCE ONE 02/13 45 UNVr (Xylocaine 2% Jelly 02/13 46 5ML) Morphine Sulfate 4 MG ONCE ONE 02/13 45 UNVr (Morphine) 02/13 46 Initial ED EKG: none Departure Departure Time of Disposition: 357 Disposition: HOME OR SELF CARE Condition: Stable Clinical Impression Primary Impression: Obstructed San catheter Qualifiers: Encounter type: initial encounter Qualified Code: T83.091A - Other mechanical complication of indwelling urethral catheter, initial encounter Referrals: WADE MEDINA,TAYLER Reid (PCP/Family) ELISABETH LORENZO MD Departure Forms: Customer Survey General Discharge Information
[2017-02-13 03:20] VITALS: BP 154/72
[2017-02-13] MEDS ORDERED: NUPERCAINAL56.7 GM TOP (04:00)
== END 2017-02-13 04:18 ==
LOC: ERH 22:49
DX: T83.091A Other mechanical complication of indwelling urethral catheter, initial encounter (principal)
CPT/HCPCS: 96372

== ENCOUNTER → 2017-02-12 | Day surgery (SDC) | payer OTHER, MEDICARE ==
[~2017-02-12] VITALS: Ht 182.9 cm; Wt 127.9 kg
[~2017-02-12] MED LIST changes: +HYDROMORPHONE HC8 M1 PO; +MYRBETRIQ50 M1 PO; +NUPERCAINAL56.7 GM TOP; +OXYCONTIN20 M1 PO; +PROSCAR5 M1 PO
--- NOTE | 2017-02-12 21:05 | Operative Report ---
Operative/Inv Procedure Report Surgery Date: 02/12/17 Name of Procedure: Cystoscopy with fulguration of prostatic ooze using TURP loop. Pre-Operative Diagnosis: Gross hematuria with clot retention. Post-Operative Diagnosis: Same Estimated Blood Loss: 50ml to 100ml Surgeon/Police Sergeant Precinct: ELISABETH LORENZO MD Anesthesia: laryngeal mask airway Drains: 20 Vietnamese Mcleod catheter. Specimens: Prostate chips Complications: None Operative/Procedure Note Note: The patient was taken to the operating room and placed on the OR table in supine position. Timeout was performed, with the pt. awake, to correctly identify the patient, anesthesia, procedure, and IV antibiotics, and other pertinent perioperative information. After adequate anesthesia and antibiotics, the old Mcleod catheter was removed. The patient was then placed in lithotomy stirrups using yellowfin stirrups. The patient was then draped and prepped in the usual surgical fashion. A 26 Vietnamese standard resectoscope sheath with a 30 angle lens and the 24 Vietnamese loop was inserted into the urethra, and then advanced into the bladder without difficulty. A FEW small clots, and bladder stones, were noted in the bladder, and were Ellix evacuated out. With clearer vision, the prostate bed from prior resection was noted to have an irregular and ratty surface with areas of minor bleeding from the base of the resection. Upon entering the bladder, it was thoroughly and systematically surveyed revealing no evidence of tumor, no evidence of stone, both orifices were difficult to find due to the severe trabeculation, in their orthotopic position with clear yellow reflux. Under direct visualization, the 24 Vietnamese loop was used to spot cauterize bleeding areas of the prostate. The prostate channel was noted to have good hemostasis, with a wide open channel. The resectoscope was removed with the bladder full. A 20 Vietnamese Mcleod catheter was inserted without difficulty draining clear fluid. The bladder was again copiously irrigated via the mcleod to ensure patency of the Mcleod The 10 mL balloon was then filled with sterile normal saline. The patient tolerated the procedure well All sponge needle and instrument count were correct at the end of the case. The patient was then awakened, then taken to the recovery room in satisfactory condition. He will be discharged home with a Mcleod catheter and leg bag, antibiotics, pain medication, and follow-up appointment next week. Findings: Normal bladder, bleeding from prostate resection bed. Discharge Disposition: PACU Additional Comments: Discussed with the patient prostate cancer as likely source of his quick recurrence of urinary retention, elevated PSA, and current prostatic bleed. CC: BJ MEDIAN,ELISABETH
== END ==
LOC: STS 01:48
DX: R31.0 Gross hematuria (principal); N42.89 Other specified disorders of prostate; N40.1 Benign prostatic hyperplasia with lower urinary tract symptoms; N32.89 Other specified disorders of bladder; I10 Essential (primary) hypertension; I48.91 Unspecified atrial fibrillation; E78.5 Hyperlipidemia, unspecified
CPT/HCPCS: 87086; 88305; 96372; J0131

== ENCOUNTER 2017-02-15 15:05 | Observation (INO) | payer OTHER, MEDICARE ==
[~2017-02-15] VITALS: Ht 182.9 cm; Wt 127.0 kg
[~2017-02-15 15:05] MED LIST changes: +NUPERCAINAL56.7 GM TOP
--- NOTE | 2017-02-15 15:57 | ED AMS/SEIZURE/WEAK/DIZZY ---
History of Present Illness General Chief Complaint: Altered Mental Status Stated Complaint: CONFUSED PER Source: patient, old records Exam Limitations: no limitations Allergies Coded Allergies: venom-honey bee (bee venom (honey bee)) (Severe, ANAPHYLAXIS 02/15/17) ibuprofen (Intermediate, KIDNEYS 02/15/17) Triage Note: TRIAGE: PT TO ER WITH C/C CONFUSED. STATES "HE WOKE UP THIS MORNING AND I KNEW HE WAS IN AN ALTERED STATE OF MIND. HE KEEPS INSISTING HE'S OK BUT HE KEEPS FALLING ASLEEP. I'VE BEEN THROUGH THIS SO MUCH I KNOW EXACTLY WHATS GOING ON. HE DIDN'T SLEEP THE LAST 4 DAYS SO HE HASN'T USED HIS CPAP SO HIS GASSES HAVE BUILT UP. PLUS HIS FEET ARE SO SWOLLEN. HE'S VERY BELIGERENT, HE'S GIVING ME DIRTY LOOKS RIGHT NOW." WAS SEEN HERE ON THURSDAY FOR "PROSTATE OR BLADDER CAUTERIZATION" BY DR JACOBO R/T BLEEDING S/P TURP 2 WEEKS AGO. HAS PREHOSPITAL SAN CATHETER IN PLACE. PT ALERT TO VERBAL STIMULI. A/O X 3 AT TRIAGE BUT DOES STRUGGLE REMEMBERING SPECIFICS AND DETAILS. HAS CHRONIC BACK PAIN AT BASELINE, USES NARCOTIC PAIN MEDICATIONS, STATES USING THEM LESS THAN PRESCRIBED. UNSURE OF HIS NARCOTIC USE. Triage Nurses Notes Reviewed? yes HPI: Patient is a 66-year-old male brought in by his for evaluation of lethargy, intermittent confusion and change in mental status. Patient's reports that she notices symptoms this morning. Patient has been nodding off, has been verbally abusive and at times confused. Patient has a history of sleep apnea, has not been able to sleep for the past 3-4 evenings so he has not been using his CPAP machine. Patient denies any symptoms currently. Patient is on chronic pain management, reports that he has not taken any extra doses of his pain medication. Patient denies headache, recent trauma, chest pain, dyspnea, fevers , chills, difficulty with his San catheter output. (EMILIE GIL,JULIO) Vital Signs & Intake/Output Vital Signs & Intake/Output Vital Signs Date Time Temp Pulse Resp B/P B/P Pulse O2 O2 Flow FiO2 Mean Ox Delivery Rate 02/16 0835 97.0 70 22 191/78 96 Room Air 02/16 0553 96.6 62 20 162/70 98 Room Air 02/16 0349 59 92 02/16 0023 61 95 02/16 0020 61 94 02/15 2333 97.5 71 14 176/77 99 Room Air 02/15 2221 98.9 64 20 189/78 98 Room Air ED Intake and Output 02/16 0000 02/15 1200 Intake Total 1000 Output Total 730 Balance 270 Intake, IV 1000 Output, Urine 730 Patient 280 lb Weight Weight Reported by Patient Measurement Method Reconcile Medications Amlodipine Besylate 10 MG TABLET 1 TAB PO DAILY HEART/BP (Reported) Atenolol 50 MG TABLET 1 TAB PO BID HEART/BP (Reported) Atorvastatin Calcium (Lipitor) 40 MG TABLET 1 TAB PO DAILY CHOLESTEROL ( Reported) Ciprofloxacin HCl (Cipro) 500 MG TABLET 1 TAB PO BID UTI Dibucaine (Nupercainal) 1 % OINT...G. 1 CASA TOP Q6P PRN pain Diltiazem HCl 30 MG TABLET 1 TAB PO BID HEART RATE (Reported) Fluocinolone Acetonide Oil (Dermotic) 0.01 % DROPS 5 GTT OT BID BOTH EARS ( Reported) Fluticasone Propionate 50 MCG/ACTUATION SPRAY.SUSP 2 SPRAY NASB DAILY NASAL CONGESTION (Reported) Gemfibrozil 600 MG TABLET 1 TAB PO BID CHOLESTEROL (Reported) Hydrochlorothiazide 12.5 MG TABLET 1 TAB PO DAILY DIURETIC/BP (Reported) Hydromorphone HCl 8 MG TABLET 1 TAB PO 4 TIMES/DAY PAIN (Reported) Losartan (Cozaar) 100 MG TABLET 1 TAB PO DAILY hypertension Mirabegron (Myrbetriq) 50 MG TAB.ER.24H 1 TAB PO DAILY BLADDER (Reported) Oxycodone HCl (Oxycontin) 20 MG TAB.ER.12H 1 TAB PO BID PAIN (Reported) Oxycodone HCl/Acetaminophen (Oxycodone-Acetaminophen 10-325) 10 MG-325 MG TABLET 1 TAB PO TID PRN PAIN (Reported) Pioglitazone HCl 45 MG TABLET 1 TAB PO DAILY DM (Reported) Pregabalin (Lyrica) 100 MG CAPSULE 1 CAP PO 6XDAILY PAIN (Reported) (RASHAUN MEDINA,RAISSA Quinteros) Past History Travel History Traveled to [place] past 21 day No Medical History Any Pertinent Medical History? 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 No (JULIO HERNANDEZ) Review of Systems Review of Systems Constitutional: Denies: chills, fever. EENTM: Reports: no symptoms. Respiratory: Denies: cough, short of breath. Cardiovascular: Reports: peripheral edema. Denies: chest pain, syncope. GI: Denies: abdominal pain, diarrhea, vomiting. Genitourinary: Reports: see HPI (chronic indwelling san). Musculoskeletal: Reports: back pain (chronic, unchanged). Skin: Reports: no symptoms. Neurological/Psychological: Reports: see HPI. Hematologic/Endocrine: Reports: no symptoms. Immunologic/Allergic: Reports: no symptoms. (JULIO HERNANDEZ) Physical Exam Physical Exam General Appearance: alert, awake Head: atraumatic, normal appearance Eyes: Bilateral: PERRL, EOMI, other (pupils 3mm bilaterally). Ears, Nose, Throat: normal pharynx, normal ENT inspection, hearing grossly normal Neck: normal inspection, supple, full range of motion Respiratory: normal breath sounds, chest non-tender, no respiratory distress, lungs clear Cardiovascular: regular rate/rhythm Gastrointestinal: soft, non-tender Back: normal inspection, normal range of motion Extremities: 3+ bilateral lower extremity edema. 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 Small areas of blistering to the bilateral lower legs with mild serous drainage Lymphatic: no anterior cervical roopa Core Measures ACS in differential dx? No CVA/TIA Diagnosis: No Severe Sepsis Present: No Septic Shock Present: No Bedside Dysphagia Screen Bedside Swallow Eval Done: Yes Result of Evaluation: Pass (JULIO HERNANDEZ) Progress Differential Diagnosis: arrythmia, alcohol intoxication, CVA/stroke, dehydration , drug intoxication, electrolyte imbalance, GI bleed, intracranial Hem., intracranial mass/tumor, meningitis, pneumonia, sepsis, seizure disorder, subarachnoid Hem., UTI/pyelo, hypercarbic respiratory failure, CARLOS, medication induced confusion. Initial ED EKG: normal intervals, normal QRS complex, normal sinus rhythm, nonspecific ST T wave chg Prior EKG: unchanged Hand-Off Endorsed To: DONTRELL MEDINA,ANIVAL Gage Endorsed Time: 99 Pending: labs, other (re-assessment of mentation) (JULIO HERNANDEZ) Plan of Care: Orders Procedure Date/time Status Discharge Patient 02/16 0948 Active ARTERIAL BLOOD GAS (GEN) 02/16 0758 Complete PT Evaluate & Treat 02/16 010 Active CASE MANAGEMENT CONSULT 02/16 010 Active CONTIN. POSITIVE AIRWAY PRESS 02/15 2250 Complete Intake & Output 02/15 1902 Active Laboratory Tests 02/16/17 0810: pH 7.41, pCO2 40, pO2 79 L, HCO3 25, ABG O2 Sat (Measured) 96.0, P-50 (Temp Corrected) YES, Carboxyhemoglobin 0.5 L, O2 Concentration % RA, Temperature 96.6 L, O2 Delivery Method RA, Phlebotomy Draw Site RIGHT RADIAL 02/16/17 0600: Anion Gap 10, Estimated GFR 47 L, BUN/Creatinine Ratio 19.3, Glucose 135 H, Calcium 8.5, Total Bilirubin 0.5, AST 34, ALT 32, Alkaline Phosphatase 120, Total Protein 6.1 L, Albumin 3.3 L, Globulin 2.8, Albumin/Globulin Ratio 1.2 1650: Patient declining CT scan of his head. No obvious focal neurologic deficits. Discussed with and seen by Dr. Hunter. Results of labs discussed with patient and his . Dr. Hunter discussed case with Dr. Arellano: patient should be placed in ED observation (JULIO HERNANDEZ) Departure Departure Disposition: STILL A PATIENT Condition: Stable Clinical Impression Primary Impression: Acute kidney injury Secondary Impressions: Confusion Referrals: TAYLER OLVERA MD (PCP/Family) Departure Forms: Customer Survey General Discharge Information (EMILIE GIL,JULIO) Observation Note Physician Advisor Notified: EVA MEDINA,NOHEMI Saez Place Patient In: ED Observation Rationale for Observation: My rational for observation is as follows patient has an acute elevation in his BUN and creatinine consistent with acute kidney injury. This places him at risk of worsening electrolyte abnormalities and renal failure. I feel he requires close monitoring of his renal functions and gentle rehydration in order to reestablish renal perfusion. I do not feel he is a good candidate for outpatient management under the circumstances given the lack of clinical reevaluation available at home. The patient can be gently rehydrated in the emergency department and have a repeat basic metabolic panel. If the patient's renal functions improve that I feel he would be stable for outpatient management. If his renal functions do not improve then admission should be considered.. PA/LOG CHAIN WORKER Co-Sign Statement Statement: ED Attending supervision documentation- [x] I saw and evaluated the patient. I have also reviewed all the pertinent lab results and diagnostic results. I agree with the findings and the plan of care as documented in the PA's/LOG CHAIN WORKER's documentation. [] I have reviewed the ED Record and agree with the PA's/LOG CHAIN WORKER's documentation. [] Additions or exceptions (if any) to the PAs/LOG CHAIN WORKER's note and plan are summarized below: [] (RASHAUN MEDINA,RAISSA Quinteros) Departure Comments 02/16/17 8 am The patient was signed out to me by Dr. Lomas. He has a history of renal insufficiency, urinary retention and hypercarbic respiratory failure. His was concerned he has been confused. Now in the emergency Department he is awake alert and oriented 3. Arterial blood gases been obtained to ensure he is not retaining CO2. 02/16/17 10 AM The patient is awake alert oriented 3. He has no complaints. His creatinine is come down to 1.5 after fluids. Arterial blood gas reveals no hypercarbia. He is ambulating without assistance. His is come to pick him up , he will follow-up with Dr. Jacobo today. (RAISSA MATTSON DO) ED Attending Observation Initial Observation Note: I have seen and personally examined CLAUDINE HAYDEN on 02/15/17 at 1839. I agree with the current emergency department documentation. The disposition (admission or discharge) is uncertain at this time, he needs a period of observation for the following reason(s): See progress notes The ED Nurse caring for this patient has been personally informed as to what the patient is being observed for. (RASHAUN MEDINA,RAISSA Quinteros) Initial Observation Note: I have seen and personally examined CLAUDINE HAYDEN on 02/16/17 at 0945. I agree with the current emergency department documentation. The disposition (admission or discharge) is uncertain at this time, he needs a period of observation for the following reason(s): The ED Nurse caring for this patient has been personally informed as to what the patient is being observed for. Observation Re-Evaluation: I have reevaluated CLAUDINE HAYDEN on 02/16/17 at 0945. The physical findings that support the continued need to observe this patient include [the patient had been observed for improved mental status, ensuring he was not hypercarbic, and that his creatinine came down.]. Observation Discharge: I have reevaluated CLAUDINE HAYDEN on 02/16/17 at 0946. The patient is: ([X]): Stable for discharge (): To be admitted to Nursing Floor (): To be placed in Observation on Nursing Floor (): For transfer to other facility The patient was being observed for As a result of that observation, I have determined . 02/16/17 10:15 AM The patient has been observed for mental status changes. He is ambulating without difficulty now in the Emergency Department. His creatinine is come down. He is awake alert and oriented 3. He is following up with Dr. Jacobo today. (RAISSA MATTSON DO) [] Additions or exceptions (if any) to the PAs/LOG CHAIN WORKER's note and plan are summarized below: [] (RAISSA HUNTER MD) Departure Comments 02/16/17 8 am The patient was signed out to me by Dr. Lomas. He has a history of renal insufficiency urinary retention and hypercarbic respiratory failure. His was concerned his he is been confused. Now in the emergency Department he is awake alert and oriented 3. Arterial blood gases been obtained to ensure he is not retaining CO2. 02/16/17 10 AM The patient is awake alert oriented 3. He has no complaints. His creatinine is come down to 1.5 after fluids. Arterial blood gas reveals no hypercarbia. He is ambulating without assistance. His is come to pick him up will follow-up with Dr. Jacobo today. (RAISSA MATTSON DO) ED Attending Observation Initial Observation Note: I have seen and personally examined CLAUDINE HAYDEN on 02/15/17 at 1839. I agree with the current emergency department documentation. The disposition (admission or discharge) is uncertain at this time, he needs a period of observation for the following reason(s): See progress notes The ED Nurse caring for this patient has been personally informed as to what the patient is being observed for. (RASHAUN MEDINA,RAISSA Quinteros) Initial Observation Note: I have seen and personally examined CLAUDINE HAYDEN on 02/16/17 at 0945. I agree with the current emergency department documentation. The disposition (admission or discharge) is uncertain at this time, he needs a period of observation for the following reason(s): The ED Nurse caring for this patient has been personally informed as to what the patient is being observed for. Observation Re-Evaluation: I have reevaluated CLAUDINE HAYDEN on 02/16/17 at 0945. The physical findings that support the continued need to observe this patient include [the patient had been observed for improved mental status, ensuring he was not hypercarbic, and that his creatinine came down.]. Observation Discharge: I have reevaluated CLAUDINE HAYDEN on 02/16/17 at 0946. The patient is: ([X]): Stable for discharge (): To be admitted to Nursing Floor (): To be placed in Observation on Nursing Floor (): For transfer to other facility The patient was being observed for As a result of that observation, I have determined . 02/16/17 10:15 AM The patient has been observed for mental status changes. He is ambulating without difficulty now in the Emergency Department. His creatinine is come down. He is awake alert and oriented 3. He is following up with Dr. Jacobo today. (RAISSA MATTSON DO)
[2017-02-15 17:04] LABS: ABSOLUTE BASOPHIL COUNT 0.1 /CUMM (0.0-0.2); ABSOLUTE EOSINOPHIL COUNT 0.4 /CUMM (0.0-0.7); ABSOLUTE GRANULOCYTE CT 7.9 /CUMM (1.4-6.5); ABSOLUTE LYMPH COUNT 1.8 /CUMM (1.2-3.4); EOSINOPHIL % 3.9 % (0-5); GRANULOCYTE % 70.4 % (42.2-75.2); HEMATOCRIT 33.9 % (42-52); MEAN CORPUSCULAR HGB 28.8 PG (27.0-31.0); MEAN CORPUSCULAR HGB CONC 33.3 G/DL (33.0-37.0); MEAN CORPUSCULAR VOLUME 86.4 FL (80.0-94.0); MEAN PLATELET VOLUME 9.3 FL (7.4-10.4); PLATELET COUNT 253 /CUMM (130-400); RBC DISTRIBUTION WIDTH 13.8 % (11.5-14.5); RED BLOOD CELL CT 3.93 /CUMM (4.70-6.10); WHITE BLOOD CELL COUNT 11.2 /CUMM (4.8-10.8)
[2017-02-15] MEDS ORDERED: HYDROMORPHONE HC8 M1 PO (18:17)
[2017-02-15] MEDS ORDERED: OXYCONTIN20 M1 PO (18:18)
[2017-02-15] MEDS ORDERED: MYRBETRIQ50 M1 PO (18:19)
[2017-02-15] MEDS ORDERED: FLUTICASONE PRO16 GM NASB (18:19)
[2017-02-16 08:35] VITALS: BP 191/78
== END 2017-02-16 13:42 ==
LOC: ERH 15:05 → ERHI 18:40
PROVIDERS: Physician Assistant; ADMIT Pediatrics
DX: N17.9 Acute kidney failure, unspecified (principal); R41.0 Disorientation, unspecified; I48.91 Unspecified atrial fibrillation; E78.5 Hyperlipidemia, unspecified; G47.33 Obstructive sleep apnea (adult) (pediatric); I12.9 Hypertensive chronic kidney disease with stage 1 through stage 4 chronic kidney disease, or unspecified chronic kidney disease; E11.22 Type 2 diabetes mellitus with diabetic chronic kidney disease; N18.9 Chronic kidney disease, unspecified; Z85.820 Personal history of malignant melanoma of skin
CPT/HCPCS: 6090; ERO; 80307; 81001; 87086; 93005; 93010; 99291; G0378; G0480

== ENCOUNTER 2017-03-24 15:34 | Emergency (ER) | payer OTHER, MEDICARE ==
[~2017-03-24] VITALS: Ht 182.9 cm; Wt 136.1 kg
[~2017-03-24 15:34] MED LIST changes: +HYDROMORPHONE HC8 M1 PO; +MYRBETRIQ50 M1 PO; +OXYCONTIN20 M1 PO
--- NOTE | 2017-03-24 16:02 | ED AMS/SEIZURE/WEAK/DIZZY ---
History of Present Illness General Chief Complaint: General Adult Stated Complaint: SIB FOR EVAL, AMS PER Source: patient, family, old records Exam Limitations: no limitations Vital Signs & Intake/Output Vital Signs & Intake/Output Vital Signs Date Time Temp Pulse Resp B/P B/P Pulse O2 O2 Flow FiO2 Mean Ox Delivery Rate 03/24 1747 97.1 54 18 184/80 95 Room Air 03/24 1739 Room Air 03/24 1542 97.5 57 16 178/77 95 Room Air ED Intake and Output 03/25 0000 03/24 1200 Intake Total Output Total Balance Patient 300 lb Weight Weight Reported by Patient Measurement Method Allergies Coded Allergies: venom-honey bee (bee venom (honey bee)) (Severe, ANAPHYLAXIS 02/15/17) ibuprofen (Intermediate, KIDNEYS 02/15/17) Reconcile Medications Amlodipine Besylate 10 MG TABLET 1 TAB PO DAILY HEART/BP (Reported) Apixaban (Eliquis) 5 MG TABLET 1 TAB PO BID BLOOD THINNER (Reported) Atenolol 50 MG TABLET 1 TAB PO BID HEART/BP (Reported) Atorvastatin Calcium (Lipitor) 40 MG TABLET 1 TAB PO DAILY CHOLESTEROL ( Reported) Diltiazem HCl 30 MG TABLET 1 TAB PO BID HEART RATE (Reported) Duloxetine HCl 60 MG CAPSULE.DR 1 CAP PO DAILY MENTAL HEALTH (Reported) Gemfibrozil 600 MG TABLET 1 TAB PO BID CHOLESTEROL (Reported) Hydrochlorothiazide 12.5 MG TABLET 1 TAB PO DAILY DIURETIC/BP (Reported) Hydromorphone HCl 8 MG TABLET 1 TAB PO 4 TIMES/DAY PAIN (Reported) Losartan (Cozaar) 100 MG TABLET 1 TAB PO DAILY hypertension Mirabegron (Myrbetriq) 50 MG TAB.ER.24H 1 TAB PO DAILY BLADDER (Reported) Oxycodone HCl (Oxycontin) 20 MG TAB.ER.12H 1 TAB PO BID PAIN (Reported) Oxycodone HCl/Acetaminophen (Oxycodone-Acetaminophen 10-325) 10 MG-325 MG TABLET 1 TAB PO TID PRN PAIN (Reported) Pioglitazone HCl 45 MG TABLET 1 TAB PO DAILY DM (Reported) Pregabalin (Lyrica) 100 MG CAPSULE 2 CAP PO TID PAIN (Reported) Triage Note: PT TO ED WITH FOR INCREASED LETHARGY OVER PAST FEW DAYS. REPORTING "HIS KIDNEY LEVELS WERE ELEVATED AND I WANT TO GET THEM CHECKED AGAIN" PT DENIES ANY COMPLAINTS EXCEPT CHRONIC LOW BACK PAIN. Triage Nurses Notes Reviewed? yes Onset: Gradual Duration: day(s): (FEW) Timing: recent history Injury Environment: home Severity: mild, moderate No Modifying Factors: none Associated Symptoms: SLEEPINESS, SOME CONFUSION HPI: This is a 66-year-old male with history of obstructive sleep apnea on CPAP, chronic renal insufficiency and chronic back pain on OxyContin and oxycodone presents with his for chief complaint of feeling fatigued and sleeping for the last couple days. She feels his numbers may be off. Patient is being monitored for chronic kidney disease. His last creatinine was 1.1 and then climbed to 1.48. She states he only sleeps about 2 hours per night with a sleep apnea machine. Patient states that he is on his chronic pain medications which he takes as directed except for may be taking the when necessary's 5 times a day instead of 4 times a day. Patient presented in that past with similar issues. No trauma. No fever, chills. No headache or blurred vision. He is awake and alert and oriented although slow to respond. Past History Travel History Traveled to [place] past 21 day No Medical History Any Pertinent Medical History? 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 No Review of Systems Review of Systems Constitutional: Reports: malaise. Denies: chills, fever. EENTM: Denies: ear pain, throat pain. Respiratory: Denies: cough, short of breath, sputum production. Cardiovascular: Denies: chest pain, palpitations, peripheral edema. GI: Denies: abdominal pain. Genitourinary: Denies: discharge, dysuria, frequency. Musculoskeletal: Denies: back pain, joint swelling. Skin: Denies: rash. Neurological/Psychological: Reports: confusion (MILD). Denies: headache. Hematologic/Endocrine: Denies: bruising, bleeding, polyuria, polydipsia. Immunologic/Allergic: Denies: splenectomy. All Other Systems: Reviewed and Negative Physical Exam Physical Exam General Appearance: well developed/nourished, awake, lethargic, mild distress, obese Head: atraumatic, normal appearance Eyes: Bilateral: normal appearance, PERRL, EOMI. Ears, Nose, Throat: normal pharynx, normal ENT inspection, hearing grossly normal Neck: normal inspection, supple, full range of motion Respiratory: normal breath sounds, chest non-tender, no respiratory distress Cardiovascular: regular rate/rhythm Peripheral Pulses: 2+ radial (R), 2+ radial (L) Gastrointestinal: normal bowel sounds, soft, non-tender, OBESE Extremities: pedal edema Neurologic/Psych: no motor/sensory deficits, awake, alert, oriented x 3, motor/ sensory deficits, SLOW TO RESPOND Skin: intact, normal color, warm/dry Core Measures ACS in differential dx? No CVA/TIA Diagnosis: No Severe Sepsis Present: No Septic Shock Present: No Progress Differential Diagnosis: anemia, dehydration, encephalitis, electrolyte imbalance , HYPERCARBIA, OPIATE SIDE EFFECT Plan of Care: Orders Procedure Date/time Status ARTERIAL BLOOD GAS (GEN) 03/24 1605 Complete URINE DRUGS OF ABUSE 03/24 1602 Complete URINALYSIS 03/24 1602 Complete EKG 03/24 1602 Active COMPREHENSIVE METABOLIC PANEL 03/24 1543 Complete CBC WITHOUT DIFFERENTIAL 03/24 1543 Complete Laboratory Tests 03/24/17 1619: Urine Opiates Screen 1118.00, Methadone Screen 56, Barbiturate Screen < 60, Ur Phencyclidine Scrn < 6.00, Amphetamines Screen < 100, U Benzodiazepines Scrn < 85, Urine Cocaine Screen < 50, Urine Cannabis Screen < 5.00, Urine Color YEL, Urine Clarity CLEAR, Urine pH 6.0, Ur Specific [place] 1.020, Urine Protein 100 H, Urine Ketones NEG, Urine Nitrite NEG, Urine Bilirubin NEG, Urine Urobilinogen 0.2, Ur Leukocyte Esterase NEG, Ur Microscopic SEDIMENT EXAMINED, Urine RBC 5-10 H, Urine WBC 1-3 H, Ur Epithelial Cells RARE, Urine Bacteria FEW H, Granular Casts 1-3 H, Urine Hemoglobin MOD H, Urine Glucose NEG 03/24/17 1610: pH 7.31 L, pCO2 53 H, pO2 74 L, HCO3 26, ABG O2 Sat (Measured) 93.0 L, P-50 (Temp Corrected) N, Carboxyhemoglobin 0.6 L, O2 Concentration % R/A, Temperature 97.5, Phlebotomy Draw Site RIGHT RADIAL 03/24/17 1552: Anion Gap 12, Estimated GFR 43 L, BUN/Creatinine Ratio 18.8, Glucose 176 H, Calcium 8.7, Total Bilirubin 0.4, AST 31, ALT 32, Alkaline Phosphatase 123, Total Protein 7.0, Albumin 4.0, Globulin 3.0, Albumin/Globulin Ratio 1.3, CBC w Diff NO MAN DIFF REQ, RBC 4.16 L, MCV 86.4, MCH 28.1, RDW 15.0 H, MPV 8.4, Gran % 61.1, Lymphocytes % 26.7, Monocytes % 6.9, Eosinophils % 4.4, Basophils % 0.9, Absolute Granulocytes 4.7, Absolute Lymphocytes 2.1, Absolute Monocytes 0.5 , Absolute Eosinophils 0.3, Absolute Basophils 0.1, PUBS MCHC 32.5 L MILD ELEVATION OF CREATININE, C02 53. NO INDICATION FOR BIPAP OR ADMISSION AT THIS TIME. RESULTS REVIEWED EXTENSIVELY WITH WITH PATIETN AND . PCP PAGED. I REQUESTED TO FOLLOW UP WITH PCP BY END OF THE WEEK. WE ALSO CAME UP WITH A PLAN TO HAVE CPAP SET UP BY HIS RECLINER SO THAT HE WILL BE ABLE TO USE IT MORE THAN 2 HOURS A DAY AND TO MAINTAIN A PROPER SCHEDUL OF HIS PAIN MEDICATIONS TO AVOID OPIATE SIDE EFFECT IN SETTING OF HYPERCARBIA. (RISSA MEDINA,FROY) Initial ED EKG: SINUS BRADYCARDIA Departure Departure Time of Disposition: 1746 Disposition: HOME OR SELF CARE Condition: Stable Clinical Impression Primary Impression: CRI (chronic renal insufficiency) Secondary Impressions: Sleep apnea Referrals: WADE MEDINA,TAYLER Reid (PCP/Family) Additional Instructions: Please follow up with Dr. Rees in the office. Make sure you wear your CPAP machine at night. Take your pain medications as prescribed. Return as needed. Departure Forms: Customer Survey General Discharge Information
[2017-03-24 16:15] LABS: ABSOLUTE BASOPHIL COUNT 0.1 /CUMM (0.0-0.2); ABSOLUTE EOSINOPHIL COUNT 0.3 /CUMM (0.0-0.7); ABSOLUTE GRANULOCYTE CT 4.7 /CUMM (1.4-6.5); ABSOLUTE LYMPH COUNT 2.1 /CUMM (1.2-3.4); ABSOLUTE MONOCYTE COUNT 0.5 /CUMM (0.10-0.60); BASOPHIL % 0.9 % (0.0-2.0); EOSINOPHIL % 4.4 % (0-5); GRANULOCYTE % 61.1 % (42.2-75.2); MEAN CORPUSCULAR HGB 28.1 PG (27.0-31.0); MEAN CORPUSCULAR HGB CONC 32.5 G/DL (33.0-37.0); MEAN CORPUSCULAR VOLUME 86.4 FL (80.0-94.0); MEAN PLATELET VOLUME 8.4 FL (7.4-10.4); PLATELET COUNT 204 /CUMM (130-400); RED BLOOD CELL CT 4.16 /CUMM (4.70-6.10); WHITE BLOOD CELL COUNT 7.7 /CUMM (4.8-10.8)
[2017-03-24] MEDS ORDERED: ELIQUIS5 M1 PO (16:17)
[2017-03-24] MEDS ORDERED: DULOXETINE HCL60 MG PO (16:18)
[2017-03-24 17:47] VITALS: BP 184/80
== END 2017-03-24 17:56 ==
LOC: ERH 15:34
PROVIDERS: Emergency Medicine
DX: N18.9 Chronic kidney disease, unspecified (principal); G47.30 Sleep apnea, unspecified
CPT/HCPCS: 80307; 81001; 93005; 93010

== ENCOUNTER 2017-04-11 21:19 | Inpatient (IN) | payer OTHER, MEDICARE ==
[~2017-04-11] VITALS: Ht 182.9 cm; Wt 131.5 kg
[2017-04-11 22:45] LABS: ABSOLUTE BASOPHIL COUNT 0.1 /CUMM (0.0-0.2); ABSOLUTE EOSINOPHIL COUNT 0.4 /CUMM (0.0-0.7); ABSOLUTE GRANULOCYTE CT 4.4 /CUMM (1.4-6.5); ABSOLUTE LYMPH COUNT 2.3 /CUMM (1.2-3.4); ABSOLUTE MONOCYTE COUNT 0.8 /CUMM (0.10-0.60); EOSINOPHIL % 4.5 % (0-5); GRANULOCYTE % 55.7 % (42.2-75.2); MEAN CORPUSCULAR HGB 28.4 PG (27.0-31.0); MEAN CORPUSCULAR HGB CONC 33.4 G/DL (33.0-37.0); MEAN CORPUSCULAR VOLUME 84.9 FL (80.0-94.0); PLATELET COUNT 244 /CUMM (130-400); RBC DISTRIBUTION WIDTH 15.6 % (11.5-14.5)
--- NOTE | 2017-04-11 22:48 | RADIOLOGY REPORT ---
EXAMINATION: XR CHEST CLINICAL INFORMATION: Fluid overload. COMPARISON: None TECHNIQUE: 2 views of the chest were obtained. FINDINGS: Both lungs are fairly well-expanded and clear of acute process. The heart size an pulmonary vascularity is normal. No gross bony abnormality seen. IMPRESSION: Unremarkable chest exam.
--- NOTE | 2017-04-11 22:49 | ED AMS/SEIZURE/WEAK/DIZZY ---
History of Present Illness General Chief Complaint: General Adult Stated Complaint: PT THINK HIS KIDNEY FUCTION IS OFF Source: patient, family, old records Exam Limitations: confusion Vital Signs & Intake/Output Vital Signs & Intake/Output Vital Signs Date Time Temp Pulse Resp B/P B/P Pulse O2 O2 Flow FiO2 Mean Ox Delivery Rate 04/12 0039 96.0 67 20 146/64 97 Room Air 04/11 2127 97.8 76 22 153/69 96 Room Air ED Intake and Output 04/12 0000 04/11 1200 Intake Total Output Total Balance Patient 290 lb Weight Allergies Coded Allergies: venom-honey bee (bee venom (honey bee)) (Severe, ANAPHYLAXIS 02/15/17) ibuprofen (Intermediate, KIDNEYS 02/15/17) Reconcile Medications Amlodipine Besylate 10 MG TABLET 1 TAB PO DAILY HEART/BP (Reported) Apixaban (Eliquis) 5 MG TABLET 1 TAB PO BID BLOOD THINNER (Reported) Atenolol 50 MG TABLET 1 TAB PO BID HEART/BP (Reported) Atorvastatin Calcium (Lipitor) 40 MG TABLET 1 TAB PO DAILY CHOLESTEROL ( Reported) Diltiazem HCl 30 MG TABLET 1 TAB PO BID HEART RATE (Reported) Duloxetine HCl 60 MG CAPSULE.DR 1 CAP PO DAILY MENTAL HEALTH (Reported) Gemfibrozil 600 MG TABLET 1 TAB PO BID CHOLESTEROL (Reported) Hydrochlorothiazide 12.5 MG TABLET 1 TAB PO DAILY DIURETIC/BP (Reported) Hydromorphone HCl 8 MG TABLET 1 TAB PO 4 TIMES/DAY PAIN (Reported) Losartan (Cozaar) 100 MG TABLET 1 TAB PO DAILY hypertension Mirabegron (Myrbetriq) 50 MG TAB.ER.24H 1 TAB PO DAILY BLADDER (Reported) Oxycodone HCl (Oxycontin) 20 MG TAB.ER.12H 1 TAB PO BID PAIN (Reported) Oxycodone HCl/Acetaminophen (Oxycodone-Acetaminophen 10-325) 10 MG-325 MG TABLET 1 TAB PO TID PRN PAIN (Reported) Pioglitazone HCl 45 MG TABLET 1 TAB PO DAILY DM (Reported) Pregabalin (Lyrica) 100 MG CAPSULE 2 CAP PO TID PAIN (Reported) Triage Note: PER PTS "THINK HIS KIDNEY FUNCTION IS OFF" RLE HAD VENOUS STASIS REPAIR AND IS NOT DRAINING LIKE IT SHOULD AND HE IS OFF, IT MUST BE HIS KIDNEYS. TOLD BY DR OLVERA TO COME FOR GASES. Triage Nurses Notes Reviewed? yes HPI: 66M PMH BPH S/P TURP AND RECENT PROSTATE CANCER DIAGNOSIS, PVD, CHRONIC VENOUS STASIS, HTN, RECURRENT EPISODES OF CARLOS WITH DELIRIUM BROUGHT IN BY FOR CONFUSION FOR THE PAST TWO DAYS, WITH WORSENING BILATERAL LOWER EXTREMITY EDEMA AND STASIS DERMATITIS BILATERALLY. IS CONCERNED PATIENT'S KIDNEYS ARE MALFUNCTIONING, THIS IS HOW HE GETS WHEN HE HAS CARLOS. THE PATIENT FEELS FINE AND HAS NO COMPLAINTS. HE APPEARS WELL AND IS ABLE TO COOPERATIVE AND GIVE AN ACCURATE HISTORY, BUT BECOMES CONFUSED WHEN PRESSED FOR DETAILS. (MARV MATTHEWS MD) Past History Travel History Traveled to [place] past 21 day No Medical History Any Pertinent Medical History? 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 No (TANAY GILBERT MD) Review of Systems Review of Systems Constitutional: Reports: see HPI. EENTM: Reports: no symptoms. Respiratory: Reports: no symptoms. Cardiovascular: Reports: no symptoms. GI: Reports: no symptoms. Genitourinary: Reports: see HPI. Musculoskeletal: Reports: no symptoms. Skin: Reports: see HPI. Neurological/Psychological: Reports: no symptoms. Hematologic/Endocrine: Reports: no symptoms. Immunologic/Allergic: Reports: no symptoms. All Other Systems: Reviewed and Negative (MARV MATTHEWS MD) Physical Exam Physical Exam General Appearance: well developed/nourished, no apparent distress Head: atraumatic, normal appearance Eyes: Bilateral: normal appearance. Ears, Nose, Throat: normal pharynx, normal ENT inspection Neck: normal inspection, supple Respiratory: normal breath sounds Cardiovascular: regular rate/rhythm Gastrointestinal: soft, non-tender Back: normal inspection, normal range of motion Extremities: normal range of motion, BILATERAL WEEPING ERYTHEMA WITHOUT PURULENCE, 1+ EDEMA BILATERALLY TO KNEES Neurologic/Psych: no motor/sensory deficits, awake, alert, oriented x 3, normal gait, normal mood/affect, calf skinner II-XII nml as tested (CASSIE MEDINA,MARV) Core Measures ACS in differential dx? No CVA/TIA Diagnosis: No Severe Sepsis Present: No Septic Shock Present: No (VLADIMIR MEDINA,TANYA) Progress Differential Diagnosis: arrythmia, alcohol intoxication, anemia, benign positional vertigo, CVA/stroke, dehydration, drug intoxication, encephalitis, electrolyte imbalance, GI bleed, hypoglycemia, hypoxia, intracranial Hem., intracranial mass/tumor, labrynthitis, meningitis, Meniere's disease, migraine [place], multiple sclerosis, pneumonia, postural hypotension, presyncope, post- traumatic vertigo, sepsis, seizure disorder, subarachnoid Hem., UTI/pyelo, vertebrobasilar insuff Plan of Care: Orders Procedure Date/time Status Consistent Carbohydrate 2 04/12 B Active URINE DRUGS OF ABUSE 04/12 0116 Active URINALYSIS 04/12 0116 Active Patient Data 04/12 0102 Active Add-on Test (ER Only) 04/12 0102 Active EKG 04/12 0042 Active OXYGEN SETUP (GEN) 04/12 0041 Active Saline Lock 04/12 0041 Active Admit to inpatient 04/12 0041 Active Vital Signs 04/12 0041 Active Activity/Ambulation 04/12 0041 Active Code Status 04/12 0041 Active TROPONIN LEVEL 04/11 2234 Complete ARTERIAL BLOOD GAS (GEN) 04/11 221 Complete COMPREHENSIVE METABOLIC PANEL 04/11 2213 Complete CBC WITHOUT DIFFERENTIAL 04/11 2213 Complete B-TYPE NATRIURETIC PEP (BNP) 04/11 2213 Complete Current Medications Sig/Donny Start time Last Medication Dose Stop Time Status Admin Methylprednisolone 125 MG ONCE ONE 04/12 0130 UNVr (Solu Medrol) 04/12 0131 Laboratory Tests 04/11/17 2234: Anion Gap 12, Estimated GFR 35 L, BUN/Creatinine Ratio 15.3, Glucose 185 H, Calcium 8.4, Total Bilirubin 0.3, AST 20, ALT 40, Alkaline Phosphatase 119, Troponin I < 0.01, Lne-G-Fxcmexjafwo Pept 211 H, Total Protein 6.8, Albumin 3.7 , Globulin 3.1, Albumin/Globulin Ratio 1.2, CBC w Diff NO MAN DIFF REQ, RBC 4.00 L, MCV 84.9, MCH 28.4, RDW 15.6 H, MPV 9.0, Gran % 55.7, Lymphocytes % 29.2, Monocytes % 9.6 H, Eosinophils % 4.5, Basophils % 1.0, Absolute Granulocytes 4.4, Absolute Lymphocytes 2.3, Absolute Monocytes 0.8 H, Absolute Eosinophils 0.4, Absolute Basophils 0.1, PUBS MCHC 33.4 04/11/17 2230: pH 7.29 *L, pCO2 47 H, pO2 83, HCO3 22, ABG O2 Sat (Measured) 94.0 L, P-50 ( Temp Corrected) N, Carboxyhemoglobin 0.3 L, O2 Concentration % RA, Temperature 97.8, Phlebotomy Draw Site RIGHT RADIAL WILL OBTAIN ABG, RENAL FUNCTION TESTS, CBC, CXR TO EVALUATE FOR FLUID OVERLOAD AND ALTERED MENTAL STATUS. (MARV MATTHEWS MD) Initial ED EKG: normal axis, normal intervals, normal p-waves, normal QRS complex, normal sinus rhythm, no ST T wave changes (TANYA GILBERT MD) Departure Departure Condition: Stable Referrals: TAYLER OLVERA MD (PCP/Family) Departure Forms: Customer Survey General Discharge Information (MARV MATTHEWS MD) Departure Disposition: STILL A PATIENT Clinical Impression Primary Impression: Acute respiratory acidosis Secondary Impressions: Acute on chronic renal insufficiency Admission Note Spoke With: SUBHASH CASEY MD Documentation of Exam: Documentation of any treatments & extenuating circumstances including Concerns Regarding Discharge (functional status, medication knowledge or non-compliance, living conditions, etc.) that warrant an admission rather than observation: BiPAP IV steroids and agonist nebs medication adjustment serial lab exam continuing care discharge planning. (TANYA GILBERT MD)
--- NOTE | 2017-04-12 02:11 | History & Physical ---
SUDARSHAN SULLIVAN 04/12/17 0211: General Information and HPI MD Statement: I have seen and personally examined CLAUDINE HAYDEN and documented this H&P. 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 Last night his noted that he "wasn't himself". He seemed to be absent minded. Reports feeling very slow and in a fog. He had a simillar episode three weeks ago. Denies fever, chills, cough, chest pain, SOB, dizziness, palpitation,headaches, weakness, abdominal pain,N/V/D or constipation. Reports that he did not take extra pain medications and he endorses compliance with CPAP. Two weeks ago he had a vascular procedure done by Dr. Stanley as outpatient on both his legs. He does not know the details of his procedure. Per Patient Dr. Olvera his PCP stopped his HTCZ. Allergies/Medications Allergies: Coded Allergies: venom-honey bee (bee venom (honey bee)) (Severe, ANAPHYLAXIS 02/15/17) ibuprofen (Intermediate, KIDNEYS 02/15/17) Home Med list Amlodipine Besylate 10 MG TABLET 1 TAB PO DAILY HEART/BP (Reported) Apixaban (Eliquis) 5 MG TABLET 1 TAB PO BID BLOOD THINNER (Reported) Atenolol 50 MG TABLET 1 TAB PO BID HEART/BP (Reported) Atorvastatin Calcium (Lipitor) 40 MG TABLET 1 TAB PO DAILY CHOLESTEROL ( Reported) Diltiazem HCl 30 MG TABLET 1 TAB PO BID HEART RATE (Reported) Duloxetine HCl 60 MG CAPSULE.DR 1 CAP PO DAILY MENTAL HEALTH (Reported) Gemfibrozil 600 MG TABLET 1 TAB PO BID CHOLESTEROL (Reported) Hydrochlorothiazide 12.5 MG TABLET 1 TAB PO DAILY DIURETIC/BP (Reported) Hydromorphone HCl 8 MG TABLET 1 TAB PO 4 TIMES/DAY PAIN (Reported) Losartan (Cozaar) 100 MG TABLET 1 TAB PO DAILY hypertension Mirabegron (Myrbetriq) 50 MG TAB.ER.24H 1 TAB PO DAILY BLADDER (Reported) Oxycodone HCl (Oxycontin) 20 MG TAB.ER.12H 1 TAB PO BID PAIN (Reported) Oxycodone HCl/Acetaminophen (Oxycodone-Acetaminophen 10-325) 10 MG-325 MG TABLET 1 TAB PO TID PRN PAIN (Reported) Pioglitazone HCl 45 MG TABLET 1 TAB PO DAILY DM (Reported) Pregabalin (Lyrica) 100 MG CAPSULE 2 CAP PO TID PAIN (Reported) Compliance With Home Meds: UNKNOWN Past History Travel History Traveled to [place] past 21 day No Medical History Neurological: TIA X 2 EENT: hearing loss, rhinitis Cardiovascular: AFIB, hypertension, hyperlipidemia Respiratory: obstructive sleep apnea, pneumonia, USES CPAP Gastrointestinal: constipation, hiatal hernia Hepatic: NONE Renal: chronic kidney disease, "SHUT DOWN ONCE" 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 Home Who Do You Live With? spouse Services at Home: None Smoking Status: Former Smoker ETOH Use: denies use Functional Ability ADLs Independent: dressing, eating, toileting, bathing. Ambulation: walker IADLs Independent: shopping, housework, finances, food prep, telephone, medication admin. Review of Systems Review of Systems Constitutional: Denies: chills, diaphoresis, fever, malaise, weakness, unexplained weight loss. Cardiovascular: Denies: chest pain, edema, orthopena, palpitations, peripheral edema, syncope. Respiratory: Denies: cough, hemoptysis, orthopnea, short of breath, sputum production, stridor, wheezing. GI: Denies: abdominal pain, bloating, constipation, diarrhea, distention, bowel incontinence, melena, nausea, bloody stool, changes in stool, vomiting, steatorrhea. Genitourinary: Denies: discharge, dysuria, frequency, hematuria, hesitation, nocturia, pain, urgency. Exam & Diagnostic Data Last 24 Hrs of Vital Signs/I&O Vital Signs Date Time Temp Pulse Resp B/P B/P Pulse O2 O2 Flow FiO2 Mean Ox Delivery Rate 04/12 0212 95.0 67 20 177/75 98 Room Air 04/12 0039 96.0 67 20 146/64 97 Room Air 04/11 2127 97.8 76 22 153/69 96 Room Air Intake & Output 04/12 0800 04/12 0000 04/11 1600 Intake Total Output Total Balance Patient 290 lb Weight Physical Exam General Appearance Alert, Oriented X3, Cooperative, No Acute Distress, obese Skin scars on left side of forehead and cheek HEENT Atraumatic, EOMI, dry mucous membranes, pupils sluggishly reactive Neck Supple Lymphatic Cervical nl Cardiovascular Regular Rate, Normal S1, Normal S2 Lungs Clear to Auscultation, b/l decreased BS Abdomen distended, midepigastic soft mass palpable Extremities Normal Pulses, stage one ulcers b/l with largest one on right anterior leg Vascular Normal Pulses, Pulses Symmetrical Diagnostic Data EKG Results NSR, HI interval 192 CXR Results FINDINGS: Both lungs are fairly well-expanded and clear of acute process. The heart size an pulmonary vascularity is normal. No gross bony abnormality seen. IMPRESSION: Unremarkable chest exam. 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 CXR normal As Ranked By This Provider Problem List: 1. Altered mental status Assessment/Plan d/d polypharmacy (opioids)vs CO2 retention 2/2 to severe apnea will admit to tele for 24 hour monitoring TRC/neb received one dose of IV steriods, will keep off steroids as clinically no indication ( COPD exacerbation less likely,no wheezing appreciated) place on Bipap and repeat ABG in am f/up utox Please inform Dr. Stover of his admission on Thursday His CMR needs to be confirmed. 2. Acute on chronic kidney failure Assessment/Plan unclear etiology of carlos ? dehydration vs meds (htcz,cozaar) avoid nephrotoxic meds gentle IVF 3. Atrial fibrillation Assessment/Plan continue Eliquis and atenolo 4. HTN (hypertension) Assessment/Plan will contine norvasc, and hold HTCZ and losartan in view of CARLOS 5. Chronic back pain Assessment/Plan will hold his Opiods in view of AMS IV tyelnol 6. Diabetes mellitus Assessment/Plan accuchecks hold his oral hypoglycemic and place on ISS 7. DVT prophylaxis Assessment/Plan Eliquis 8. Full code status Core Measures/Miscellaneous Acute Coronary Syndrome ACS Diagnosis: No Cerebrovascular Accident CVA/TIA Diagnosis: No Congestive Heart Failure CHF Diagnosis: No VTE (View Protocol) VTE Risk Factors: Age > 40, Obesity No [facility] VTE prophylaxis d/t: LE Injury, current No VTE Pharm Prophylaxis d/t: No contraindications VTE Diagnosis: No VTE Type: NONE VTE Confirmed by (Test): NONE Sepsis (View Protocol) Severe Sepsis Present: No Septic Shock Septic Shock Present: No Miscellaneous Documentation Attending Case Discussed With: LORRIE CASEY MDRobinson Primary Care Physician: TAYLER OLVERA MD A Patient sees these Specialists Dr. Miguel Angel Rae Level of Patient Care: Telemetry [facility] 04/12/17 0535: Attending MD Review Statement Attending Statement Attending MD Statement: examined this patient, discuss w/resident/PA/BAR MACHINE OPERATOR MULTIPLE SPINDLE, agreed w/resident/PA/BAR MACHINE OPERATOR MULTIPLE SPINDLE Attending Assessment/Plan: 66 yo morbidly obese M with chronic hypercarbia with severe central and ROB on CPAP, T2DM, Afib s/p cardioversion (2014) on eliquis, CVA, chronic back pain s/p vertebral fusion surgery on opiates, depression, CKD stage 3B, depression, recent diagnosis of prostate adenocarcinoma awaiting radiation therapy (Dr. Rodrigues in May 2017), is brought in by for c/o confusion which she attributed to most likely his worsening renal functions. On our evaluation, patient was awake, alert and able to give us appropriate history. He has been previously admitted for respiratory failure 2/2 opiate use and underlying OHS. Patient reports, recent outpatient vascular procedure with Dr. Stanley (?vein stripping) for his chronic LE wounds/edema. He reports being taken off HCTZ by his PCP for worsening renal function. Vitals stable. Chest b/l reduced air entry but no wheezes, LE: chronic edema 2+, with open areas with leaking. Labs: no leukocytosis, Na 133, BUN 29, creat 1.9 ( baseline 1.5), trop neg, proBNP 211, AB.29/47/83/22. UA clear. Utox mild opiates. CXR neg. EKG: SR. 1. Confusion in the setting of acute on chronic hypercarbic respiratory failure 2/2 underlying sleep apnea, opiate use and possible OHS. No evidence of COPDE, patient received IV steroids in ER, will hold off further steroids. Confusion could also be attributed to worsening renal failure CARLOS on CKD. Tele admit for Bipap and continuous pulse ox monitoring for 24 hours, recheck ABG in AM. Obtain Pulm consult. Resume pain meds at low dose and uptitrate. Gentle IV hydration and recheck renal functions. Hold nephrotoxic drugs. Diabetes management. 2. LE wounds. Obtain wound consult. Obtain records about recent outpatient vascular procedure. DVT ppx Eliquis. Full code. Confirm CMR in AM and resume home meds. NATALIE REAVES 04/12/17 0549: Resident Review Statement Resident Statement: examined this patient, discussed with management retail intern, amended to note Other Findings: 66 year old gentleman with afib on eliquis, hypertension, hyperlipidemia, depression, low back pain on high doses of opiates, previous admissions for hypercarbic respiratory failure likely secondary to increased opiate use in addition to severe obstructive sleep apnea and obesity hypoventilation syndrome presented to [facility] ED for an episode of confusion, not associated with any loss of consciousness or seizure-like activity. Patient did report worsening kidney function recently as told to him by his PCP. ABGs revealed respiratory acidosis. Admit to telemetry for continuous pulse ox. BiPAP. Pulmonary consult. CARLOS: Avoid nephrotoxic agents. IV fluid for 1 bag. Wound care consult. Continue the medications. Full code. Eliquis as DVT prophylaxis. Heart healthy diet.
[2017-04-12 03:14] VITALS: BP 160/66
--- NOTE | 2017-04-12 05:37 | Admission Certification ---
Admission Certification Certification Statement - As attending physician, I certify that at the time of - admission, based on clinical presentation, severity of - symptoms, need for further diagnostic testing and - therapeutic interventions, and risk of adverse outcomes - without in-hospital treatment, in my clinical assessment, - this patient requires an acute hospital stay for a minimum - of two nights or longer. I have also considered psychsocial - factors such as support system, advanced age, financial - issues, cognitive issues, and failed out-patient treatments, - past re-admission history, safety of patient, and lack of - compliance as applicable. Specific rationale supporting this admission is: Acute on chronic hypercarbic respiratory failure.
[2017-04-12 08:34] LABS: ABSOLUTE BASOPHIL COUNT 0 /CUMM (0.0-0.2); ABSOLUTE EOSINOPHIL COUNT 0 /CUMM (0.0-0.7); ABSOLUTE LYMPH COUNT 0.7 /CUMM (1.2-3.4); ABSOLUTE MONOCYTE COUNT 0.1 /CUMM (0.10-0.60); BASOPHIL % 0.3 % (0.0-2.0); EOSINOPHIL % 0.4 % (0-5); MEAN CORPUSCULAR HGB 28.4 PG (27.0-31.0); MEAN CORPUSCULAR HGB CONC 33.2 G/DL (33.0-37.0); MEAN CORPUSCULAR VOLUME 85.6 FL (80.0-94.0); MEAN PLATELET VOLUME 10.2 FL (7.4-10.4); PLATELET COUNT 233 /CUMM (130-400); RED BLOOD CELL CT 4.33 /CUMM (4.70-6.10); WHITE BLOOD CELL COUNT 9.9 /CUMM (4.8-10.8)
[2017-04-12 09:45] VITALS: BP 168/62
[2017-04-12 10:08] LABS: GRANULOCYTE % 91.2 % (42.2-75.2)
--- NOTE | 2017-04-12 11:45 | Cons- Pulmonary ---
General Information and HPI Consulting Request Date of Consult: 04/12/17 Requested By: Dr. Gautam Reason for Consult: ROB Source of Information: patient Exam Limitations: no limitations History of Present Illness: Consultation requested for a 66-year-old man with obstructive sleep apnea on ASV therapy. He has been last seen in the pulmonary sleep office in June 2016. He follows with Dr. Parikh. His history includes high cholesterol, hypertension, CK D, basal cell skin cancer, diabetes, he is a former smoker quit in 2002. He has a history of cholecystectomy and back surgeries including shoulder surgery in the past. He presented on the will of his as she thought his creatinine may be elevated due to some poor coherence. In fact it was creatinine was found to be 1.9 and currently 1.7. He also had mild metabolic acidemia with small respiratory component as well. He is on opiates as well for pain control of his musculoskeletal issues. This morning he appears to be well compensated off oxygen and doing very well. His BNP is mildly elevated without any significant elevation. His chest x-ray is unremarkable. He is enrolled in the lung cancer screening program with a history of mild emphysema stable nodules and he is in the annual program due in 12 months next year. Allergies/Medications Allergies: Coded Allergies: venom-honey bee (bee venom (honey bee)) (Severe, ANAPHYLAXIS 02/15/17) ibuprofen (Intermediate, KIDNEYS 02/15/17) Home Med List: Amlodipine Besylate 10 MG TABLET 1 TAB PO DAILY HEART/BP (Reported) Apixaban (Eliquis) 5 MG TABLET 1 TAB PO BID BLOOD THINNER (Reported) Atenolol 50 MG TABLET 1 TAB PO BID HEART/BP (Reported) Atorvastatin Calcium (Lipitor) 40 MG TABLET 1 TAB PO DAILY CHOLESTEROL ( Reported) Diltiazem HCl 30 MG TABLET 1 TAB PO BID HEART RATE (Reported) Duloxetine HCl 60 MG CAPSULE.DR 1 CAP PO DAILY MENTAL HEALTH (Reported) Gemfibrozil 600 MG TABLET 1 TAB PO BID CHOLESTEROL (Reported) Hydrochlorothiazide 12.5 MG TABLET 1 TAB PO DAILY DIURETIC/BP (Reported) Hydromorphone HCl 8 MG TABLET 1 TAB PO 4 TIMES/DAY PAIN (Reported) Losartan (Cozaar) 100 MG TABLET 1 TAB PO DAILY hypertension Mirabegron (Myrbetriq) 50 MG TAB.ER.24H 1 TAB PO DAILY BLADDER (Reported) Oxycodone HCl (Oxycontin) 20 MG TAB.ER.12H 1 TAB PO BID PAIN (Reported) Oxycodone HCl/Acetaminophen (Oxycodone-Acetaminophen 10-325) 10 MG-325 MG TABLET 1 TAB PO TID PRN PAIN (Reported) Pioglitazone HCl 45 MG TABLET 1 TAB PO DAILY DM (Reported) Pregabalin (Lyrica) 100 MG CAPSULE 2 CAP PO TID PAIN (Reported) Current Medications: Current Medications Sig/Donny Start time Last Medication Dose Route Stop Time Status Admin Acetaminophen 1,000 MG Q6P PRN 04/12 0230 AC IV Albuterol Sulfate 2 PUF Q4P PRN 04/12 1000 AC INH Albuterol Sulfate 3 ML ONCE ONE 04/12 0045 DC 04/12 INH 04/12 0046 0052 Amlodipine Besylate 10 MG DAILY 04/12 1000 AC 04/12 PO 0909 Apixaban 5 MG BID 04/12 1000 AC 04/12 PO 0908 Duloxetine HCl 60 MG DAILY 04/12 1000 AC 04/12 PO 0908 Insulin Aspart 0 TIDAC 04/12 0800 AC 04/12 SC 0908 Ipratropium [place] 2.5 ML ONCE ONE 04/12 0045 DC 04/12 INH 04/12 0046 0052 Lidocaine 1 PAT Q24H PRN 04/12 0230 AC 04/12 EXT 0910 Methylprednisolone 0 .STK-MED ONE 04/12 0142 DC .ROUTE Methylprednisolone 125 MG ONCE ONE 04/12 0130 DC 04/12 IV 04/12 0131 0215 Mirabegron 50 MG DAILY 04/12 1000 AC 04/12 PO 0914 Sodium Chloride 1,000 ML ONCE ONE 04/12 0230 AC 04/12 IV 04/12 1549 0330 Review of Systems Comments 18 point review of systems performed. Pertinent positive and negative findings are in the HPI, otherwise negative. 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 Home Who Do You Live With? spouse Services at Home: None Smoking Status: Former Smoker ETOH Use: denies use Functional Ability ADLs Independent: dressing, eating, toileting, bathing. Ambulation: walker IADLs Independent: shopping, housework, finances, food prep, telephone, medication admin. Exam & Diagnostic Data Last 24 Hrs of Vital Signs/I&O Vital Signs Date Time Temp Pulse Resp B/P B/P Pulse O2 O2 Flow FiO2 Mean Ox Delivery Rate 04/12 1000 Room Air 04/12 0945 97.5 83 20 168/62 96 Room Air 04/12 0909 78 174/62 04/12 0800 Room Air 04/12 0553 76 96 04/12 0345 70 94 04/12 0326 BIPAP 04/12 0320 97.5 04/12 0314 64 20 160/66 97 04/12 0212 95.0 67 20 177/75 98 Room Air 04/12 0039 96.0 67 20 146/64 97 Room Air 04/11 2127 97.8 76 22 153/69 96 Room Air Intake & Output 04/12 1600 04/12 0800 04/12 0000 Intake Total Output Total 525 Balance -525 Output, Urine 525 Patient 290 lb 290 lb Weight Physical Exam Other Physical Findings: Gen - alert and awake HEENT - NCAT CVS - S1, S2, systolic murmur Lungs - clear to auscultation bilaterally Abdomen - soft, non-tender, bs+ Ext - bilateral edema with bilateral dressings intact Last 48 Hrs of Labs/Charles: Laboratory Tests 04/12/17 0940: pH 7.30 *L, pCO2 39, pO2 86, HCO3 19 L, ABG O2 Sat (Measured) 95.0 L, Carboxyhemoglobin 0.3 L, O2 Concentration % RA, Phlebotomy Draw Site LEFT RADIAL 04/12/17 0615: Anion Gap 12, Estimated GFR 40 L, BUN/Creatinine Ratio 18.2, CBC w Diff NO MAN DIFF REQ, RBC 4.33 L, MCV 85.6, MCH 28.4, RDW 15.0 H, MPV 10.2, Gran % 91.2 H , Lymphocytes % 7.5 L, Monocytes % 0.6 L, Eosinophils % 0.4, Basophils % 0.3, Absolute Granulocytes 9.0 H, Absolute Lymphocytes 0.7 L, Absolute Monocytes 0.1 L, Absolute Eosinophils 0, Absolute Basophils 0, PUBS MCHC 33.2 04/12/17 0205: Urine Opiates Screen 1093.00, Methadone Screen 67, Barbiturate Screen < 60, Ur Phencyclidine Scrn < 6.00, Amphetamines Screen < 100, U Benzodiazepines Scrn < 85, Urine Cocaine Screen < 50, Urine Cannabis Screen < 5.00, Urine Color YEL, Urine Clarity CLEAR, Urine pH 6.0, Ur Specific [place] 1.025, Urine Protein 100 H, Urine Ketones NEG, Urine Nitrite NEG, Urine Bilirubin NEG, Urine Urobilinogen 0.2, Ur Leukocyte Esterase NEG, Ur Microscopic SEDIMENT EXAMINED, Urine RBC 1-3, Urine WBC 1-3 H, Ur Epithelial Cells RARE, Urine Bacteria RARE H, Urine Hemoglobin TRACE-INTACT H, Urine Glucose NEG 04/11/172233: Anion Gap 12, Estimated GFR 35 L, BUN/Creatinine Ratio 15.3, Glucose 185 H, Calcium 8.4, Total Bilirubin 0.3, AST 20, ALT 40, Alkaline Phosphatase 119, Troponin I < 0.01, Mxn-G-Rqiefyvnkwf Pept 211 H, Total Protein 6.8, Albumin 3.7 , Globulin 3.1, Albumin/Globulin Ratio 1.2, CBC w Diff NO MAN DIFF REQ, RBC 4.00 L, MCV 84.9, MCH 28.4, RDW 15.6 H, MPV 9.0, Gran % 55.7, Lymphocytes % 29.2, Monocytes % 9.6 H, Eosinophils % 4.5, Basophils % 1.0, Absolute Granulocytes 4.4, Absolute Lymphocytes 2.3, Absolute Monocytes 0.8 H, Absolute Eosinophils 0.4, Absolute Basophils 0.1, PUBS MCHC 33.4 04/11/172229: pH 7.29 *L, pCO2 47 H, pO2 83, HCO3 22, ABG O2 Sat (Measured) 94.0 L, P-50 ( Temp Corrected) N, Carboxyhemoglobin 0.3 L, O2 Concentration % RA, Temperature 97.8, Phlebotomy Draw Site RIGHT RADIAL Assessment/Plan Impression/Plan: Impression 66-year-old man * Obstructive sleep apnea on ASV therapy * Deviated septum * Mild emphysema and lung nodules enrolled in the lung cancer screening program * Metabolic acidosis with a mild respiratory component * CARLOS on CKD Plan -continue ASV therapy, needs to have f/u with Dr. Parikh upon discharge to review compliance and control -renal insufficiency per primary team -f/u COPD and lung nodules care per Dr. Parikh -rexay for dc from pulmonary perspective after evaluation of his kidney issues have been addressed -consideration for ENT f/u as outpatient for septal deviation follow up DVT prophylaxis at all times during hospitalization Consult Acknowledgment - Thank you for your consult request.
--- NOTE | 2017-04-12 12:58 | PN- Att Addend ---
Attending Addendum Attending Brief Note 66-year-old morbidly obese male with past medical history significant for chronic hypercarbia, obstructive sleep apnea but not using CPAP machine, type 2 diabetes mellitus, A. fib status post cardioversion and on Eliquis, CVA, chronic back pain status post vertebral fusion surgery and on opioids, depression, CK D stage IIIB, and a recent diagnosis of prostate adenocarcinoma awaiting radiation therapy is being admitted to the floor with altered mental status and worsening renal function. His altered mental status was most likely due to acute on chronic hypercapnic respiratory failure secondary to underlying obstructive sleep apnea and opioid use. Ruled out for COPD exacerbation. He was admitted to the telemetry for continuous pulse oximetry. Patient was seen and examined on the bedside and reported that he is doing great and does not has any complaints or any other signs and symptoms, perhaps he would like to be discharged home today. He reported that this is not the first time happening to him as he often gets sometimes off as he does not use CPAP machine which has been recommended in the past. His kidney function has also improved due to IV normal saline. ABGs with mild improvement. Pulmonology has reviewed the patient and he is cleared to go home from pulmonary standpoint a few, though his creatinine has came down but not yet back to his baseline, we'll check the BUN/creatinine tomorrow and will discharge him if they're back to normal. Patient would follow-up with Dr. Miller for his COPD pulmonary nodules. We will also continue with his ASV therpy. Adaptive sero-ventilation therapy can be an effective therapy for specific types of central sleep apneas such as tiny Owen respiration for patients who are on chronically opioid dependence as these patients are usually resistant to CPAP.
[2017-04-12 15:43] VITALS: BP 172/70
[2017-04-13 00:25] VITALS: BP 192/80
[2017-04-13 01:00] VITALS: BP 194/82
--- NOTE | 2017-04-13 02:24 | Event Note ---
Event Note Event Note: S: bp consistently elevated up to 194/82. Was asymptomtic, denied chest pain, palpitations, shortness of breath. B: 66-year-old gentleman with past medical history significant for HTN with two of his antihypertensives on hold upon admission, A. fib status post cardioversion and on Eliquis, CVA, chronic back pain status post vertebral fusion surgery with his opioids held on admission. A: elevated BP 2/2 holding antihypertensives VS uncontrolled Pain vs Opiod withdrawal. R: 10mg IV hydralazine pushed around 12am, repeat BP remained elevated at 194/ 82, around 1:50am 10 mg IV labetalol was given. 20 minutes later he complained of chest pain, diaphoresis and continuing back pain, BP was 200/78 . Stat trop/ ekg, sl nitro and 2mg IV morphine given. repeat BP 176/72, continued to complain of back pain, another dose of IV 2mg morphine given. will continue to monitor.
[2017-04-13 03:45] VITALS: BP 1174/80; BP 174/80
--- NOTE | 2017-04-13 07:21 | PN- Housestaff ---
ANNIE BERNSTEIN 04/13/17 0720: Subjective Follow-up For: - Acuteon chronic hypoxic and hypercarbic respiratory failure 2/2 overdose of pain meds. - ROB on ASV - Altered menatal status - CARLOS - Hx of recently diagnosed prostate cancer Complaints: no complaints Tele-Events Since Last Visit: SR 1st degree HB 77-100, cont. pulse ox: 93-98% Subjective: Patient seen and examined at [facility]. He is eager to go home. Curerntly deneis chest pain, SOB, N/V/D, abdominal pain, fever. Had elevated BP last night and was given Hydralazien and Labetolol. Of note his BP meds were held the day prior. Patient c/o chets pain whe he recieved IV BP meds. Of note his trop was negative and EKG unremarkable. Patient states his chest pain resolved in 20 mins. Review of Systems Constitutional: Denies: chills, fever. EENTM: Denies: visual changes. Cardiovascular: Denies: chest pain, orthopena, palpitations, syncope. Respiratory: Denies: cough, orthopnea, short of breath, sputum production, wheezing. Gastrointestinal: Denies: abdominal pain, nausea, vomiting. Genitourinary: Reports: no symptoms. Musculoskeletal: Reports: back pain. Neurological/Psychological: Denies: headache, numbness, tingling, tremors. Objective Last 24 Hrs of Vital Signs/I&O Vital Signs Date Time Temp Pulse Resp B/P B/P Pulse O2 O2 Flow FiO2 Mean Ox Delivery Rate 04/13 0345 174/80 04/13 0258 84 95 04/13 0145 85 194/82 04/13 0100 194/82 04/13 0027 84 95 04/13 0025 98.2 90 20 192/80 95 CPAP 04/13 0000 96 CPAP 04/12 2345 82 192/80 04/12 2236 82 97 04/12 1543 98.3 94 20 172/70 97 Room Air 04/12 1000 Room Air 04/12 0945 97.5 83 20 168/62 96 Room Air 04/12 0909 78 174/62 04/12 0800 Room Air Intake & Output 04/13 0800 04/13 0000 04/12 1600 Intake Total 600 1460 1325 Output Total 1700 800 500 Balance -1100 660 825 Intake, IV 300 380 Intake, Oral 600 1160 945 Output, Urine 1700 800 500 Physical Exam General Appearance: Alert, Oriented X3, Cooperative, No Acute Distress HEENT: Atraumatic, PERRLA, EOMI, Mucous Membr. moist/pink Neck: Supple, No JVD, No thryomegaly, +2 Carotid Pulse wo Bruit, No LAD Cardiovascular: Regular Rate, Normal S1, Normal S2, No Murmurs Lungs: Clear to Auscultation, Normal Air Movement Abdomen: Normal Bowel Sounds, Soft, No Tenderness Neurological: Normal Speech, Strength at 5/5 X4 Ext, Normal Tone, Sensation Intact, Cranial Nerves 3-12 NL, Reflexes 2+ Extremities: 2+ b/l lower extremity edema, with chronic venous stasis changes, adnm wound dressing Current Medications: Current Medications Sig/Donny Start time Last Medication Dose Route Stop Time Status Admin Acetaminophen 1,000 MG Q6P PRN 04/12 0230 AC IV Albuterol Sulfate 2 PUF Q4P PRN 04/12 1000 AC INH Amlodipine Besylate 10 MG DAILY 04/12 1000 AC 04/12 PO 0909 Apixaban 5 MG BID 04/12 1000 AC 04/12 PO 2206 Atenolol 50 MG BID 04/13 1000 AC PO Duloxetine HCl 60 MG DAILY 04/12 1000 AC 04/12 PO 0908 Hydralazine HCl 10 MG ONCE ONE 04/12 2345 DC 04/12 IV 04/12 2346 2345 Hydromorphone HCl 1.2 MG ONCE ONE 04/13 0230 CAN IV 04/13 0231 Insulin Aspart 0 TIDAC 04/12 0800 AC 04/12 SC 1715 Labetalol HCl 20 MG ONCE ONE 04/13 0230 CAN IV 04/13 0231 Labetalol HCl 10 MG ONCE ONE 04/13 0145 DC 04/13 IV 04/13 0146 0145 Lidocaine 1 PAT Q24H PRN 04/12 0230 AC 04/12 EXT 0910 Losartan Potassium 100 MG DAILY 04/13 1000 AC PO Mirabegron 50 MG DAILY 04/12 1000 AC 04/12 PO 0914 Morphine Sulfate 2 MG ONCE ONE 04/13 0245 DC 04/13 IV 04/13 0246 0233 Morphine Sulfate 2 MG ONCE ONE 04/13 0245 DC 04/13 IV 04/13 0246 0251 Morphine Sulfate 2 MG ONCE ONE 04/13 0230 CAN IV 04/13 023 Nitroglycerin 0.4 MG ONCE ONE 04/13 023 DC 04/13 SL 04/13 023 0233 Sodium Chloride 1,000 ML ONCE ONE 04/12 023 DC 04/12 IV 04/12 1549 0330 Last 24 Hrs of Lab/Charles Results Last 24 Hrs of Labs/Mics: Laboratory Tests 04/13/17 0230: Troponin I < 0.01 04/13/17 0230: Anion Gap 9, Estimated GFR > 60, BUN/Creatinine Ratio 25.8 H 04/12/17 0940: pH 7.30 *L, pCO2 39, pO2 86, HCO3 19 L, ABG O2 Sat (Measured) 95.0 L, Carboxyhemoglobin 0.3 L, O2 Concentration % RA, Phlebotomy Draw Site LEFT RADIAL Orders Fingersticks (last 24 hrs): 191, 203, 399, 261 Radiology Findings: FINDINGS: Both lungs are fairly well-expanded and clear of acute process. The heart size an pulmonary vascularity is normal. No gross bony abnormality seen. IMPRESSION: Unremarkable chest exam. Assessment/Plan Assessment: 66-year-old morbidly obese male with past medical history significant for chronic hypercarbia, obstructive sleep apnea but not using CPAP machine, type 2 diabetes mellitus, A. fib status post cardioversion and on Eliquis, CVA, chronic back pain status post vertebral fusion surgery and on opioids, depression, CK D stage IIIB, and a recent diagnosis of prostate adenocarcinoma awaiting radiation therapy was admitted to the floor with altered mental status, acute on chronic hypoxic a nd hypercarbic respiratory failure and worsening renal function. Vitals at the time of admission blood pressure 177/75, respiratory rate of 20, pulse 67, afebrile saturating 98% on room air. Physical exam pertinent for chest with bilateral reduced air entry, no wheezes, 2+ chronic edema in his lower extremities with large areas which were leaking. Labs pertinent for normal white blood cell count of 8000, H&H of 11.4/34.0, normal MCV 84.9. Platelet count was 244,000. Serum chemistries revealed a sodium of 133, potassium of 4.2, BUN 29, with elevated creatinine of 1.9. LFTs unremarkable with an AST/SGOT 20/40, total bili 0.3, first set of troponin negative at less than 0.01, proBNP of 211. U tox positive for urinary opiates, negative for cocaine. UA pertinent for 1-3 white blood cells, bacteriuria, and proteinuria. ABGs pertinent for respiratory acidosis with a pH of 7.29, PCO2 of 47, PO2 of 83. Chest x-ray showed no acute abnormality. EKG shows normal sinus rhythm. The ER he received a dose of methylprednisone 125 mg IV 1 and breathing treatment. He was admitted to telemetry for continuous pulse oximetry. Assessment and plan #Acute on chronic hypoxic and hypercarbic respiratory failure Most likely secondary to overdose of pain medications versus noncompliance with ASV. He was not continued on steroids as it was not deemed that he was in COPD exacerbation. He was evaluated by Dr. Jefferson from pulmonary and has been treated status normal markedly after being on machine. His pulse ox continue to be within normal limits at 9398%. He should follow-up with Dr. Roberts as an outpatient. #AK I Most likely secondary to dehydration. His renal function improved remarkably after IV hydration. #Altered mental status Most likely secondary to being on large doses of pain medications. His pain medications including Percocet and OxyContin were held while in the hospital. His mentation improved remarkably. These medications were subsequently resumed. #Hypertension While in the hospital he received IV medications with labetalol and hydralazine since his blood pressure was elevated to the 190s. This however was in the setting of his blood pressure medications being held. His blood pressure medications amlodipine 10 mg daily, atenolol 50 mg by mouth twice a day, to Ricci 30 mg by mouth twice a day, losartan 100 mg by mouth daily , hydrochlorothiazide 12.5 mg by mouth daily were resumed upon discharge. He was also evaluated by cardiology Dr. Riggs since he complained of chest pain at the time when his blood pressure was elevated. His troponins were negative and EKG did not show any ischemic changes. He should follow-up with Dr. Michelle as an outpatient for a stress test. #History of A. fib He was continued on Eliquis 5 mg by mouth twice a day and diltiazem 30 mg by mouth twice a day #Hyperlipidemia He was continued on atorvastatin 40 daily and gemfibrozil 600 mg by mouth twice a day #Neuropathy He was on Lyrica 200 mg 3 times a day, Cymbalta 60 mg by mouth daily which was held in the hospital as he had presented with altered mentation. This was resumed upon discharge. #Lhh-fokmnhd-hkllhoibg diabetes mellitus He was on pioglitazone was held in the hospital and he was placed on NovoLog sliding scale. His fingersticks range between the 100s to 200s. Is to resume his home medications upon discharge. #History of prostate cancer He was continued on Mirabetriq 50 mg at bedtime. He had no evidence of obstructive uropathy while in the hospital. He is to follow-up with his primary oncologist as an outpatient. -Duty prophylaxis On Eliquis -Diet -Heart healthy -CODE STATUS Full code Problem List: 1. Altered mental status 2. ACUTE HYPERCARBIC RESP FAILURE Pain Ratin Pain Location: back Pain Goal: Remain pain free Pain Plan: Oxycontin 20mg BID PO percocet 1 tab q6PRN PO Tomorrow's Labs & Rationales: n/a Discharge Plan Discharge Disposition: home LEX CHAMPAGNE MD 04/13/17 0944: Attending MD Review Statement Attending Statement Attending MD Statement: examined this patient, discuss w/resident/PA/CLINICAL NURSE MANAGER, agreed w/resident/PA/CLINICAL NURSE MANAGER, reviewed EMR data (avail), discussed with nursing, discussed with case mgmt, amended to note Attending Assessment/Plan: Patient seen and examined. Resting comfortably and not in acute distress. He is alert and oriented 3. He is conversing appropriately. He is ambulating freely around the unit. Apparently blood pressure medications were initially held pending confirmation of drugs and doses. In the interim his blood pressure became markedly elevated. He received a dose of hydralazine with improvement of his blood pressure. However at that time he complained of retrosternal pain. Pain abated spontaneously. EKG shows no ischemic changes. Cardiac enzymes are negative 2. He denies any history of chest pain or shortness of breath at rest or with exertion. Pulmonary follow-up appreciated. Patient reports that he barely sleeps 2-5 hours daily at night. Thus he does not use his ASV therapy consistently through the night. He reports having several sleep studies with Owen Parikh MD as an outpatient in the past. There was concern that he may have been oversedated from his narcotic medication. He however reports compliance with his medications and states that he rarely takes more than prescribed doses. Denies taking more than prescribed doses recently. Problems: 1. Acute hypercapnic respiratory failure 2. Chronic obstructive pulmonary disease. 3. Obstructive sleep apnea with possible obesity hypoventilation syndrome as well. 4. Chronic pain syndrome. 5. Acute kidney injury; resolved. 6. Chest pain 7. Hypertension Plan: -Patient has been advised on the need for proper sleep hygiene to ensure that he sees OVERNIGHT. He has been advised to use his ASV therapy overnight. We will avoid prescribing any sleep aids in the LAD not to induce oversedation in this patient. -He is to follow-up with pulmonology service as an outpatient to review compliance and control. -His processing supervisor will be making recommendations regarding ENT follow-up if needed for septal deviation follow-up. -Resume his home pain regimen. Please edit CMR to reflect the patient is no longer on Dilaudid as he had a prescription prescribed one time in the month of January this year. -Resume his home antihypertensive medications and follow blood pressure this morning. -Following evaluation by the cardiology service he may be discharged home today. He will follow-up with his blowing engineer Juan Jose Michelle MD as an outpatient for further cardiac workup as indicated.
[2017-04-13 08:21] VITALS: BP 190/66
--- NOTE | 2017-04-13 09:04 | PN- Pulmonary ---
Subjective HPI/Critical Care Issues: pt seen and examined doing well comfortable no pulmonary complaints Objective Current Medications: Current Medications Sig/Donny Start time Last Medication Dose Route Stop Time Status Admin Acetaminophen 1,000 MG Q6P PRN 04/12 0230 AC IV Albuterol Sulfate 2 PUF Q4P PRN 04/12 1000 AC INH Amlodipine Besylate 10 MG DAILY 04/12 1000 AC 04/12 PO 0909 Apixaban 5 MG BID 04/12 1000 AC 04/12 PO 2206 Atenolol 50 MG BID 04/13 1000 AC PO Duloxetine HCl 60 MG DAILY 04/12 1000 AC 04/12 PO 0908 Hydralazine HCl 20 MG .STK-MED ONE 04/13 0004 DC IM 04/13 0005 Hydralazine HCl 10 MG ONCE ONE 04/12 2345 DC 04/12 IV 04/12 2346 2345 Hydromorphone HCl 1.2 MG ONCE ONE 04/13 0230 CAN IV 04/13 0231 Insulin Aspart 0 TIDAC 04/12 0800 AC 04/12 SC 1715 Labetalol HCl 20 MG ONCE ONE 04/13 0230 CAN IV 04/13 0231 Labetalol HCl 10 MG ONCE ONE 04/13 0145 DC 04/13 IV 04/13 0146 0145 Lidocaine 1 PAT Q24H PRN 04/12 0230 AC 04/12 EXT 0910 Losartan Potassium 100 MG DAILY 04/13 1000 AC PO Mirabegron 50 MG DAILY 04/12 1000 AC 04/12 PO 0914 Morphine Sulfate 2 MG ONCE ONE 04/13 0245 DC 04/13 IV 04/13 0246 0233 Morphine Sulfate 2 MG ONCE ONE 04/13 0245 DC 04/13 IV 04/13 0246 0251 Morphine Sulfate 2 MG ONCE ONE 04/13 0230 CAN IV 04/13 0231 Nitroglycerin 0.4 MG ONCE ONE 04/13 0230 DC 04/13 SL 04/13 0231 0233 Sodium Chloride 1,000 ML ONCE ONE 04/12 0230 DC 04/12 IV 04/12 1549 0330 Vital Signs & I&O Last 24 Hrs of Vitals and I&O: Vital Signs Date Time Temp Pulse Resp B/P B/P Pulse O2 O2 Flow FiO2 Mean Ox Delivery Rate 04/13 0821 98.7 91 20 190/66 97 Room Air 04/13 0345 174/80 04/13 0258 84 95 04/13 0145 85 194/82 04/13 0100 194/82 04/13 0027 84 95 04/13 0025 98.2 90 20 192/80 95 CPAP 04/13 0000 96 CPAP 04/12 2345 82 192/80 04/12 2236 82 97 04/12 1543 98.3 94 20 172/70 97 Room Air 04/12 1000 Room Air 04/12 0945 97.5 83 20 168/62 96 Room Air 04/12 0909 78 174/62 Intake & Output 04/13 1600 04/13 0800 04/13 0000 Intake Total 600 1460 Output Total 1700 800 Balance -1100 660 Intake, IV 300 Intake, Oral 600 1160 Output, Urine 1700 800 Exam Other Physical Findings: Gen - alert and awake HEENT - NCAT CVS - S1, S2, systolic murmur Lungs - clear to auscultation bilaterally Abdomen - soft, non-tender, bs+ Ext - bilateral edema with bilateral dressings intact Results Last 24 Hrs of Lab Results: Laboratory Tests 04/13/17 0230: Troponin I < 0.01 04/13/17 0230: Anion Gap 9, Estimated GFR > 60, BUN/Creatinine Ratio 25.8 H 04/12/17 0940: pH 7.30 *L, pCO2 39, pO2 86, HCO3 19 L, ABG O2 Sat (Measured) 95.0 L, Carboxyhemoglobin 0.3 L, O2 Concentration % RA, Phlebotomy Draw Site LEFT RADIAL Impression/Plan Impression/Plan Impression/Plan: Impression 66-year-old man * Obstructive sleep apnea on ASV therapy * Deviated septum * Mild emphysema and lung nodules enrolled in the lung cancer screening program * Metabolic acidosis with a mild respiratory component * CARLOS improved Plan -continue ASV therapy, needs to have f/u with Dr. Parikh upon discharge to review compliance and control -renal insufficiency per primary team -f/u COPD and lung nodules care per Dr. Parikh -hetal ralph dc from pulmonary perspective after evaluation of his kidney issues have been addressed -consideration for ENT f/u as outpatient for septal deviation follow up DVT prophylaxis at all times during hospitalization
[2017-04-13] MEDS ORDERED: SILENOR6 M1 PO (10:24)
[2017-04-13] MEDS ORDERED: PROSCAR5 M1 PO (10:24)
--- NOTE | 2017-04-13 10:35 | Patient Discharge Instructions ---
Discharge Instructions General Discharge Information You were seen/treated for: Acute on chronic hypoxic and hypercarbic respiratory failure Altered mental stastus Acute renal injury Special Instructions: - Please follow up with your primary care physician in one week. - Please follow up with your ship rigger apprentice in one week for an outpatient stress test. - Please follow up with your division sergeant in one week for better control of your ROB Diet Recommended Diet: Diabetic Activity Activity Self Limited: Yes Acute Coronary Syndrome Inclusion Criteria At DC or during hospital stay patient has or had the following: ACS DIAGNOSIS No Discharge Core Measures Meds if any: Prescribed or Continued at Discharge Meds if any: NOT Prescribed or Continued at Discharge Congestive Heart Failure Inclusion Criteria At DC or during hospital stay patient has or had the following: CHF DIAGNOSIS No Discharge Core Measures Meds if any: Prescribed or Continued at Discharge Meds if any: NOT Prescribed or Continued at Discharge Cerebrovascular accident Inclusion Criteria At DC or during hospital stay patient has or had the following: CVA/TIA Diagnosis No Discharge Core Measures Meds if any: Prescribed or Continued at Discharge Meds if any: NOT Prescribed or Continued at Discharge Venous thromboembolism Inclusion Criteria VTE Diagnosis No VTE Type NONE VTE Confirmed by (Test) NONE Discharge Core Measures - Per Current guidelines, there needs to be overlap - treatment for the first 5 days of Warfarin therapy. - If discharged on Warfarin prior to 5 days of - overlap therapy, the patient will need to be - assessed for post discharge needs including - *Post discharge parental anticoagulation - *Warfarin and/or parental anticoagulation education - *Follow up date to check INR post discharge At least 5 days overlap therapy as Inpatient No Meds if any: Prescribed or Continued at Discharge Note: Overlap Therapy is Warfarin and Anticoagulant Meds if any: NOT Prescribed or Continued at Discharge
--- NOTE | 2017-04-13 11:14 | Discharge Summary ---
Visit Information Visit Dates Admission Date: 04/12/17 Discharge Date: 04/13/17 Hospital Course Course Attending Physician: LEX CHAMPAGNE M.D Primary Care Physician: TAYLER OLVERA MD Consulting Request: 1 Consulting Specialty: Cardiology Consulting Request: 2 Consulting Specialty: Pulmonary Disease Hospital Course: 66-year-old morbidly obese male with past medical history significant for chronic hypercarbia, obstructive sleep apnea but not using CPAP machine, type 2 diabetes mellitus, A. fib status post cardioversion and on Eliquis, CVA, chronic back pain status post vertebral fusion surgery and on opioids, depression, CK D stage IIIB, and a recent diagnosis of prostate adenocarcinoma awaiting radiation therapy was admitted to the floor with altered mental status, acute on chronic hypoxic a nd hypercarbic respiratory failure and worsening renal function. Vitals at the time of admission blood pressure 177/75, respiratory rate of 20, pulse 67, afebrile saturating 98% on room air. Physical exam pertinent for chest with bilateral reduced air entry, no wheezes, 2+ chronic edema in his lower extremities with large areas which were leaking. Labs pertinent for normal white blood cell count of 8000, H&H of 11.4/34.0, normal MCV 84.9. Platelet count was 244,000. Serum chemistries revealed a sodium of 133, potassium of 4.2, BUN 29, with elevated creatinine of 1.9. LFTs unremarkable with an AST/SGOT 20/40, total bili 0.3, first set of troponin negative at less than 0.01, proBNP of 211. U tox positive for urinary opiates, negative for cocaine. UA pertinent for 1-3 white blood cells, bacteriuria, and proteinuria. ABGs pertinent for respiratory acidosis with a pH of 7.29, PCO2 of 47, PO2 of 83. Chest x-ray showed no acute abnormality. EKG shows normal sinus rhythm. The ER he received a dose of methylprednisone 125 mg IV 1 and breathing treatment. He was admitted to telemetry for continuous pulse oximetry. The followijg probllems were addressed: #Acute on chronic hypoxic and hypercarbic respiratory failure Most likely secondary to overdose of pain medications versus noncompliance with ASV. He was not continued on steroids as it was not deemed that he was in COPD exacerbation. He was evaluated by Dr. Jefferson from pulmonary and has been treated status normal markedly after being on machine. His pulse ox continue to be within normal limits at 9398%. He should follow-up with Dr. Roberts as an outpatient. #AK I Most likely secondary to dehydration. His renal function improved remarkably after IV hydration. #Altered mental status Most likely secondary to being on large doses of pain medications. His pain medications including Percocet and OxyContin were held while in the hospital. His mentation improved remarkably. These medications were subsequently resumed. #Hypertension While in the hospital he received IV medications with labetalol and hydralazine since his blood pressure was elevated to the 190s. This however was in the setting of his blood pressure medications being held. His blood pressure medications amlodipine 10 mg daily, atenolol 50 mg by mouth twice a day, to Ricci 30 mg by mouth twice a day, losartan 100 mg by mouth daily , hydrochlorothiazide 12.5 mg by mouth daily were resumed upon discharge. He was also evaluated by cardiology Dr. Riggs since he complained of chest pain at the time when his blood pressure was elevated. His troponins were negative and EKG did not show any ischemic changes. He should follow-up with Dr. Michelle as an outpatient for a stress test. #History of A. fib He was continued on Eliquis 5 mg by mouth twice a day and diltiazem 30 mg by mouth twice a day #Hyperlipidemia He was continued on atorvastatin 40 daily and gemfibrozil 600 mg by mouth twice a day #Neuropathy He was on Lyrica 200 mg 3 times a day, Cymbalta 60 mg by mouth daily which was held in the hospital as he had presented with altered mentation. This was resumed upon discharge. #Ikn-godbyar-idnwanzye diabetes mellitus He was on pioglitazone was held in the hospital and he was placed on NovoLog sliding scale. His fingersticks range between the 100s to 200s. Is to resume his home medications upon discharge. #History of prostate cancer He was continued on Mirabetriq 50 mg at bedtime. He had no evidence of obstructive uropathy while in the hospital. He is to follow-up with his primary oncologist as an outpatient. Complications: NOne Allergies: Coded Allergies: venom-honey bee (bee venom (honey bee)) (Severe, ANAPHYLAXIS 02/15/17) ibuprofen (Intermediate, KIDNEYS 02/15/17) Significant Procedures: SERVICE DATE: 04/11/17 EXAM TYPE: RAD - XRY-CHEST XRAY, PA AND LATERAL FINDINGS: Both lungs are fairly well-expanded and clear of acute process. The heart size an pulmonary vascularity is normal. No gross bony abnormality seen. IMPRESSION: Unremarkable chest exam. Disposition Summary Disposition Principal Diagnosis: - Acuteon chronic hypoxic and hypercarbic respiratory failure 2/2 overdose of pain meds vs ROB - Altered mental status - CARLOS Additional Diagnosis: - ROB on ASV - Hx of recently diagnosed prostate cancer COPD HTN HLP Afib on Eliquis Chronic opiod dependence NIDDM Neuropathy Discharge Disposition: home or self care Discharge Instructions General Discharge Information Code Status: Full Code Patient's Diet: Diabetic Patient's Activity: As tolerated Follow-Up Instructions/Appts: - Please follow up with your primary care physician in one week. - Please follow up with your type copy examiner in one week for an outpatient stress test. - Please follow up with your light armored reconnaissance officer in one week for better control of your ROB Medications at Discharge Discharge Medications: Continue taking these medications: Diltiazem HCl (Diltiazem HCl) 30 MG TABLET 1 Tablet ORAL TWICE DAILY Comments: Last Taken:04/13/17 Time:0815 Atorvastatin Calcium (Lipitor) 40 MG TABLET 1 Tablet ORAL DAILY Comments: Last Taken:04/12/17 Time:5PM Amlodipine Besylate (Amlodipine Besylate) 10 MG TABLET 1 Tablet ORAL DAILY Comments: Last Taken:04/13/17 Time:0815 Atenolol (Atenolol) 50 MG TABLET 1 Tablet ORAL TWICE DAILY Qty = 180 Comments: Last Taken: 04/13/17 Time: 0815 Gemfibrozil (Gemfibrozil) 600 MG TABLET 1 Tablet ORAL TWICE DAILY Qty = 180 Comments: Last Taken: 01/30/17 Time: 0815 Losartan (Cozaar) 100 MG TABLET 1 Tablet ORAL DAILY Qty = 30 Comments: Last Taken:04/13/17 Time:0815 Hydrochlorothiazide (Hydrochlorothiazide) 12.5 MG TABLET 1 Tablet ORAL DAILY Qty = 90 Comments: Last Taken:01/30/17 Time:0815 Pioglitazone HCl (Pioglitazone HCl) 45 MG TABLET 1 Tablet ORAL DAILY Qty = 45 Comments: Last Taken:NOT GIVEN IN HOSPITAL Time: Oxycodone HCl/Acetaminophen (Oxycodone-Acetaminophen 10-325) 10 MG-325 MG TABLET 1 Tablet ORAL THREE TIMES DAILY as needed for PAIN Qty = 75 Comments: Last Taken:01/30/17 Time: 1 PM Pregabalin (Lyrica) 100 MG CAPSULE 2 Capsule ORAL THREE TIMES DAILY Qty = 180 Comments: Last Taken:01/30/17 Time:2:30 PM Oxycodone HCl (Oxycontin) 20 MG TAB.ER.12H 1 Tablet ORAL TWICE DAILY Qty = 30 Comments: Last Taken:04/13/17 Time:1000 Mirabegron (Myrbetriq) 50 MG TAB.ER.24H 1 Tablet ORAL DAILY Qty = 90 Apixaban (Eliquis) 5 MG TABLET 1 Tablet ORAL TWICE DAILY Qty = 180 Comments: Last Taken:04/13/17 Time:1000 Duloxetine HCl (Duloxetine HCl) 60 MG CAPSULE.DR 1 Capsule ORAL DAILY Qty = 90 Comments: Last Taken:04/13/17 Time:1000 Finasteride (Proscar) 5 MG TABLET 1 Tablet ORAL DAILY Qty = 90 Doxepin HCl (Silenor) 6 MG TABLET 1 Tablet ORAL Every night Qty = 30 Copies To: KENNY MEDINA,GOGO Goode; DONNY MEDINA,Owen MCGUIRE; WADE MEDINA,TAYLER Reid; PLACIDO MEDINA,W ABDIFATAH; SHARITA MEDINA,JULIO Attending MD Review Statement Documenting Attending: LEX CHAMPAGNE M.D Other Findings: I have reviewed the discharge summary.
[2017-04-13 12:18] VITALS: BP 170/62
--- NOTE | 2017-04-13 13:04 | Cons- Cardiology ---
General Information and HPI Consulting Request Date of Consult: 04/13/17 Requested By: LEX CHAMPAGNE M.D Allergies/Medications Allergies: Coded Allergies: venom-honey bee (bee venom (honey bee)) (Severe, ANAPHYLAXIS 02/15/17) ibuprofen (Intermediate, KIDNEYS 02/15/17) Home Med List: Amlodipine Besylate 10 MG TABLET 1 TAB PO DAILY HEART/BP (Reported) Apixaban (Eliquis) 5 MG TABLET 1 TAB PO BID BLOOD THINNER (Reported) Atenolol 50 MG TABLET 1 TAB PO BID HEART/BP (Reported) Atorvastatin Calcium (Lipitor) 40 MG TABLET 1 TAB PO DAILY CHOLESTEROL ( Reported) Diltiazem HCl 30 MG TABLET 1 TAB PO BID HEART RATE (Reported) Doxepin HCl (Silenor) 6 MG TABLET 1 TAB PO QPM SLEEP (Reported) Duloxetine HCl 60 MG CAPSULE.DR 1 CAP PO DAILY MENTAL HEALTH (Reported) Finasteride (Proscar) 5 MG TABLET 1 TAB PO DAILY PROSTATE (Reported) Gemfibrozil 600 MG TABLET 1 TAB PO BID CHOLESTEROL (Reported) Hydrochlorothiazide 12.5 MG TABLET 1 TAB PO DAILY DIURETIC/BP (Reported) Losartan (Cozaar) 100 MG TABLET 1 TAB PO DAILY hypertension Mirabegron (Myrbetriq) 50 MG TAB.ER.24H 1 TAB PO DAILY BLADDER (Reported) Oxycodone HCl (Oxycontin) 20 MG TAB.ER.12H 1 TAB PO BID PAIN (Reported) Oxycodone HCl/Acetaminophen (Oxycodone-Acetaminophen 10-325) 10 MG-325 MG TABLET 1 TAB PO TID PRN PAIN (Reported) Pioglitazone HCl 45 MG TABLET 1 TAB PO DAILY DM (Reported) Pregabalin (Lyrica) 100 MG CAPSULE 2 CAP PO TID PAIN (Reported) Past History Travel History Traveled to [place] past 21 day No Medical History Neurological: TIA X 2 EENT: hearing loss, rhinitis Cardiovascular: AFIB, hypertension, hyperlipidemia Respiratory: obstructive sleep apnea, pneumonia, USES CPAP Gastrointestinal: constipation, hiatal hernia Hepatic: NONE Renal: chronic kidney disease, "SHUT DOWN ONCE" PER DAUG HAS [employer] CAT[employer]TER Musculoskeletal: chronic back pain, disk herniation, gout, osteoarthritis Psychiatric: NONE Endocrine: diabetes, NIDDM Blood Disorders: NONE Cancer(s): melanoma, prostate cancer 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 Home Who Do You Live With? spouse Services at Home: None Smoking Status: Former Smoker ETOH Use: denies use Functional Ability ADLs Independent: dressing, eating, toileting, bathing. Ambulation: walker IADLs Independent: shopping, housework, finances, food prep, telephone, medication admin. ECHO Results (as available) Report: CONCLUSIONS 1. Moderate aortic sclerosis is present with minimal aortic insufficiency. 2. Mitral leaflet thickening is present with mild mitral insufficiency and mild to moderate left atrial dilatation. 3. The left atrial appendage is multilobed with no evidence of thrombus. 4. The pulmonary venous anatomy is normal bilaterally. 5. The left ventricular chamber size and systolic function appear normal. LVH is present. 6. Mild dilatation of the right heart chambers is presnet with mild tricuspid and pulmonic insufficiency. 7. The atrial septum appear anatomically intact. By agitated contrast saline injection, there is a tiny resting right to left shunt present consistent with a PFO. 8. Grade II atheromatous plaque is present in the thoracic aorta. 9. A focal abnormal echodensity is present in the anterior aspect of the ascending aorta which is most consistent with artifact. There is also an illdefined echodensity in the posterior aspect of the distal arch which may represent focal non calcific plaque or artifact. A follow up study ( CTA ) is suggested to reassess the anatomy of the thoracic aorta. Immediately following the MAYELA, while still under Propofol anesthesia, the patient was placed in the supine position. 200 joules of synchronized energy was administered and the patient promptly reverted to NSR. THe patient woke from anesthesia in stable condition with no evidence of complications. The patient was discharged home in stable condition. Exam & Diagnostic Data Vital Signs and I&O Vital Signs Date Time Temp Pulse Resp B/P B/P Pulse O2 O2 Flow FiO2 Mean Ox Delivery Rate 04/13 1218 170/62 04/13 0929 190/66 04/13 0929 190/66 04/13 0929 190/66 04/13 0821 98.7 91 20 190/66 97 Room Air 04/13 0345 174/80 04/13 0258 84 95 04/13 0145 85 194/82 04/13 0100 194/82 04/13 0027 84 95 04/13 0025 98.2 90 20 192/80 95 CPAP 04/13 0000 96 CPAP 04/12 2345 82 192/80 04/12 2236 82 97 04/12 1543 98.3 94 20 172/70 97 Room Air Intake & Output 04/13 1600 04/13 0800 04/13 0000 04/12 1600 04/12 0800 04/12 0000 Intake Total 600 1460 1325 Output Total 1700 800 500 525 Balance -1100 660 825 -525 Intake, IV 300 380 Intake, Oral 600 1160 945 Output, Urine 1700 800 500 525 Patient 290 lb 290 lb Weight Diagnostic Data EKG Results EKG tracing is independently reviewed, and reveals normal sinus rhythm at 66 with intraventricular conduction delay Assessment/Plan Assessment/Plan Assessment: 1. Paroxysmal atrial fibrillation 2. Hypertension, uncontrolled 3. Acute kidney injury 4. Chest pain, ruled out for myocardial infarctions Plan: * Resume all hypertension medications * Patient is clear for discharge from a cardiac standpoint. * Follow up in one week with Dr. Michelle * Possible stress test as outpatient Consult Acknowledgment - Thank you for your consult request.
== END 2017-04-13 14:00 | DRG 189 ==
LOC: ERH 21:19 → 1NO 04-12 00:41 → ERHI 04-12 00:41 → ENRESERV 04-12 01:55 → 1NO 04-12 02:30
PROVIDERS: Internal Medicine; Internal Medicine Hematology & Oncology; ADMIT Student in an Organized Health Care Education/Training Program
DX: J96.22 Acute and chronic respiratory failure with hypercapnia (principal); N17.9 Acute kidney failure, unspecified; E87.4 Mixed disorder of acid-base balance; E11.22 Type 2 diabetes mellitus with diabetic chronic kidney disease; E11.40 Type 2 diabetes mellitus with diabetic neuropathy, unspecified; E66.2 Morbid (severe) obesity with alveolar hypoventilation; E86.0 Dehydration; F11.20 Opioid dependence, uncomplicated; I48.0 Paroxysmal atrial fibrillation; I12.9 Hypertensive chronic kidney disease with stage 1 through stage 4 chronic kidney disease, or unspecified chronic kidney disease; J44.9 Chronic obstructive pulmonary disease, unspecified; I87.8 Other specified disorders of veins; N18.3 Chronic kidney disease, stage 3 (moderate); Z68.39 Body mass index [BMI] 39.0-39.9, adult; E78.5 Hyperlipidemia, unspecified; Z79.01 Long term (current) use of anticoagulants; Z79.84 Long term (current) use of oral hypoglycemic drugs; J96.21 Acute and chronic respiratory failure with hypoxia; T40.2X1A Poisoning by other opioids, accidental (unintentional), initial encounter; F32.9 Major depressive disorder, single episode, unspecified; G89.29 Other chronic pain; M54.5 Low back pain; Z86.73 Personal history of transient ischemic attack (TIA), and cerebral infarction without residual deficits; C61 Malignant neoplasm of prostate; K44.9 Diaphragmatic hernia without obstruction or gangrene; H91.90 Unspecified hearing loss, unspecified ear; J31.0 Chronic rhinitis; K59.00 Constipation, unspecified; M10.9 Gout, unspecified; M19.90 Unspecified osteoarthritis, unspecified site; Z87.891 Personal history of nicotine dependence; Z98.1 Arthrodesis status; J34.2 Deviated nasal septum; R91.8 Other nonspecific abnormal finding of lung field; Z85.820 Personal history of malignant melanoma of skin; Z91.19 Patient's noncompliance with other medical treatment and regimen; R41.82 Altered mental status, unspecified
CPT/HCPCS: 1NP; 36415; 80307; 81001; 82436; 93005; 93010; J0360; J2270; J2930; J3490

== ENCOUNTER → 2017-12-10 | Day surgery (SDC) | payer OTHER ==
[~2017-12-10] VITALS: Ht 182.9 cm; Wt 127.0 kg
[~2017-12-10] MED LIST changes: +AMARYL1 M1 PO; +AUGMENTIN 875-1 EACH PO; +BACTRIM DS TAB1 EACH PO; +BETHANECHOL CHL25 M1 PO; +LASIX20 M1 PO; +LASIX40 M1 PO; +LOSARTAN POTAS100 M1 PO; +LYRICA200 M1 PO; +MIRALAX119 GM PO; +MORPHINE SULFAT15 M3 PO; +MORPHINE SULFAT15 M4 PO; +MULTIVITAMINS1 EAC9 PO; +OXYCODONE HCL E10 MG PO; +OXYCODONE HCL10 M2 PO; +PROSCAR5 M1 PO; +SPS 15 GM/15 GM/60 M PO; +TAMSULOSIN HCL0.4 M1 PO; +WELLBUTRIN XL300 M2 PO
--- NOTE | 2017-12-10 12:46 | Operative Report ---
Operative/Inv Procedure Report Surgery Date: 12/10/17 Name of Procedure: Curettage and desiccation 2 cm left cheek, 1 cm left ear, 1 cm left forearm 5 Left leg 1 right hand 1 full-thickness excision skin malignancy left leg 3 cm Full thickness excision 2.8 cm right leg Split-thickness grafting lower extremities total approximately 25 mL. Incision full-thickness skin malignancy right cheek 1.1 cm with complex closure 3 cm after extensive undermining. Pre-Operative Diagnosis: Multiple basal cell carcinomas Post-Operative Diagnosis: Same Estimated Blood Loss: less than 50ml Surgeon/Trainer: Rigoberto Shah MD Anesthesia: laryngeal mask airway Operative/Procedure Note Note: Patient was counseled regards the procedure the alternatives the risks and expected outcomes as relates to his request for surgical intervention to treat known skin malignancies. The patient has no syndrome but has multiple recurrent basal cell carcinomas.'s's biopsy-proven skin malignancies and we will be using the operating room for full-thickness excision of 2 large lower extremity skin malignancies as well as recurrent skin malignancy of the right cheek and multiple superficial basal cell carcinomas on the left forearm left ear left cheek and lower extremities. We talked about possibly only partially treating these lesions and he is in agreement to the extensive nature of these lesions and their recurrent nature. From consent was signed. Taken to the operating room placed supine on the table. Laryngeal mask anesthesia was established intravenous antibiotics were given. Bilateral lower extremities and right thigh were prepped and draped in usual sterile fashion. Full-thickness excision around the lesions for the dimensions described above was carried out. Was made hemostatic and at that point a right lateral thigh split graft was taken meshed and placed into the defects. Dimensions described above. Chromics were placed at the periphery irrigation was carried out and a bolster tie-over dressing was placed at each site. Curettage and desiccation was carried out at the other sites after local anesthesia. A known skin malignancy recurrence of the right cheek was carried out for the dimensions described above full-thickness. That was sent for pathologic analysis. Small wedges were taken at the ends of the wound to provide tension-free closure which was done after extensive undermining for the dimensions described above due to previous scarring in the area. Ends dictation
== END ==
LOC: STS 01:31
DX: C44.719 Basal cell carcinoma of skin of left lower limb, including hip (principal); C44.712 Basal cell carcinoma of skin of right lower limb, including hip; C44.319 Basal cell carcinoma of skin of other parts of face; E11.9 Type 2 diabetes mellitus without complications; I10 Essential (primary) hypertension; I48.91 Unspecified atrial fibrillation; Z79.01 Long term (current) use of anticoagulants; C44.619 Basal cell carcinoma of skin of left upper limb, including shoulder
CPT/HCPCS: J0690; J2250

== ENCOUNTER 2018-05-19 22:34 | Inpatient (IN) | payer OTHER ==
[~2018-05-19] VITALS: Ht 180.3 cm; Wt 134.4 kg
--- NOTE | 2018-05-19 23:37 | RADIOLOGY REPORT ---
EXAMINATION: CHEST 2 VIEWS CLINICAL INFORMATION: Edema. Ammonia. COMPARISON: October 30, 2017. TECHNIQUE: PA and lateral views of the chest were obtained. FINDINGS: The cardiac silhouette is prominent, though stable. The mediastinal and hilar contours are unremarkable. There are neither pleural effusions nor pneumothoraces. There are no consolidations. The osseous structures are stable. IMPRESSION: No evidence for acute disease. Stable prominent cardiac silhouette.
--- NOTE | 2018-05-20 00:47 | ED GENERAL ADULT ---
History of Present Illness General Chief Complaint: General Adult Stated Complaint: "TROUBLE URINATING, BILATERAL LEG SWELLING" PER PT Source: patient, family, old records Exam Limitations: no limitations Vital Signs & Intake/Output Vital Signs & Intake/Output Vital Signs Date Time Temp Pulse Resp B/P B/P Pulse O2 O2 Flow FiO2 Mean Ox Delivery Rate 05/20 0136 69 92 05/20 0022 97.6 70 20 140/90 96 Room Air 05/19 2238 97.2 82 17 140/79 95 Room Air ED Intake and Output 05/20 0000 05/19 1200 Intake Total Output Total Balance Patient 278 lb Weight Weight Reported by Patient Measurement Method Allergies Coded Allergies: venom-honey bee (bee venom (honey bee)) (Severe, ANAPHYLAXIS 12/08/17) ibuprofen (Intermediate, KIDNEYS 12/08/17) Reconcile Medications Amlodipine Besylate 10 MG TABLET 1 TAB PO DAILY HEART/BP (Reported) Apixaban (Eliquis) 5 MG TABLET 1 TAB PO BID BLOOD THINNER (Reported) Atenolol 50 MG TABLET 1 TAB PO BID HEART/BP (Reported) Atorvastatin Calcium (Lipitor) 40 MG TABLET 1 TAB PO DAILY CHOLESTEROL ( Reported) Diltiazem HCl 30 MG TABLET 1 TAB PO BID HEART RATE (Reported) Furosemide (Lasix) 40 MG TABLET 1 TAB PO PRN EDEMA (Reported) Glimepiride (Amaryl) 1 MG TABLET 0.5 TAB PO DAILY DIABETES (Reported) Morphine Sulfate (Morphine Sulfate ER) 15 MG TABLET.ER 1 TAB PO BID PAIN ( Reported) Morphine Sulfate 15 MG TABLET 1 TAB PO BID PAIN (Reported) Multiple Vitamin (Multivitamins) 1 EACH TABLET 1 TAB PO DAILY SUPPLEMENT ( Reported) Tamsulosin HCl 0.4 MG CAP.ER.24H 1 CAP PO BID (Reported) Core Measure Meds Pre-Hospital eliquis Triage Note: PT TO ED WITH C/O WORSENING BLE AND DIFFICULTY URINATING. REPORTS HX OF PROSTATE CA. C/O LEFT FLANK PAIN. DENIES FEVERS/CHILLS. DENIES SOB. REPORTS URINATING SMALL AMOUNTS FREQUENTLY. DENEIS HEMATURIA Triage Nurses Notes Reviewed? yes Onset: Last week Duration: day(s):, constant, continues in ED, getting worse Timing: recent history Injury Environment: home Severity: moderate, severe No Modifying Factors: none HPI: Several days prior to admission spouse reports patient has had episodes of drowsiness and apnea at times unable to say awake. 2-3 days prior to admission patient reports increased swelling of bilateral lower extremities. He denies fever chills nausea vomiting diarrhea abdominal pain chest pain shortness breath headache dysuria bleeding. Past History Travel History Traveled to [place] past 21 day No Medical History Any Pertinent Medical History? 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 No Review of Systems Review of Systems Constitutional: Reports: see HPI, malaise, weakness. EENTM: Reports: no symptoms. Respiratory: Reports: no symptoms. Cardiovascular: Reports: see HPI, edema. GI: Reports: no symptoms. Genitourinary: Reports: no symptoms. Musculoskeletal: Reports: no symptoms. Skin: Reports: no symptoms. Neurological/Psychological: Reports: no symptoms. Hematologic/Endocrine: Reports: no symptoms. Immunologic/Allergic: Reports: no symptoms. All Other Systems: Reviewed and Negative Physical Exam Physical Exam General Appearance: well developed/nourished, alert, awake, moderate distress, obese Head: atraumatic, normal appearance Eyes: Bilateral: normal appearance, PERRL, EOMI. Ears, Nose, Throat: normal pharynx, normal ENT inspection, hearing grossly normal Neck: normal inspection, supple, full range of motion, no midline tenderness Respiratory: chest non-tender, no respiratory distress, quiet respiration, lungs clear, decreased breath sounds Cardiovascular: normal peripheral pulses, irregularly irregular, norml femoral pulses equa Peripheral Pulses: 4+ carotid (R), 4+ carotid (L) Gastrointestinal: normal bowel sounds, soft, non-tender, no organomegaly Back: normal inspection, no vertebral tenderness Extremities: normal range of motion, pedal edema, no ligament instability Neurologic/Psych: no motor/sensory deficits, awake, alert, oriented x 3, normal gait, normal mood/affect, 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 Skin: warm/dry, rash Lymphatic: no anterior cervical roopa Core Measures ACS in differential dx? Yes No ASA d/t Pharmacological CI CVA/TIA Diagnosis: No Sepsis Present: No Sepsis Focused Exam Completed? No Progress Differential Diagnoses I considered the following diagnoses in my evaluation of the patient: CHF COPD pneumonia Plan of Care: Orders Procedure Date/time Status Regular Diet 05/20 B Active San, Insertion/Removal/Asses 05/20 226 Active CULTURE,URINE 05/20 226 Active OXYGEN SETUP (GEN) 05/20 215 Active Saline Lock 05/20 215 Active Admit to inpatient 05/20 215 Active Vital Signs 05/20 215 Active Activity/Ambulation 05/20 215 Active Code Status 05/20 215 Active CONTIN. POSITIVE AIRWAY PRESS 05/20 0139 Complete ARTERIAL BLOOD GAS (GEN) 05/207 Complete TROPONIN LEVEL 05/207 Complete MAGNESIUM 05/20 37 Complete EKG 05/20 37 Active URINALYSIS 05/19 2259 Active TROPONIN LEVEL 05/19 2259 Complete COMPREHENSIVE METABOLIC PANEL 05/19 2259 Complete CBC WITHOUT DIFFERENTIAL 05/19 2259 Complete B-TYPE NATRIURETIC PEP (BNP) 05/19 2259 Complete Laboratory Tests 05/20/18 0105: pH 7.30 *L, pCO2 57 H, pO2 64 L, HCO3 27, ABG O2 Sat (Measured) 91.0 L, P-50 (Temp Corrected) Y, Carboxyhemoglobin 0.2 L, O2 Concentration % RA, Temperature 97.6, Phlebotomy Draw Site RIGHT RADIAL 05/20/18 0052: Magnesium 2.1, Troponin I < 0.01 05/20/18 0052: Anion Gap 12, Estimated GFR 33 L, BUN/Creatinine Ratio 14.0, Glucose 145 H, Calcium 8.4, Total Bilirubin 0.4, AST 18, ALT 25, Alkaline Phosphatase 138 H, Troponin I < 0.01, Qod-Y-Xruuuzcqwct Pept 1640 H, Total Protein 6.5, Albumin 3.7, Globulin 2.8, Albumin/Globulin Ratio 1.3, CBC w Diff NO MAN DIFF REQ, RBC 4.32 L, MCV 86.0, MCH 29.0, MCHC 33.7, RDW 14.6 H, MPV 9.5, Gran % 60.9, Lymphocytes % 27.4, Monocytes % 7.9, Eosinophils % 2.9, Basophils % 0.9, Absolute Granulocytes 4.9, Absolute Lymphocytes 2.2, Absolute Monocytes 0.6, Absolute Eosinophils 0.2, Absolute Basophils 0.1 Microbiology 05/20 226 URINE ROUT: Urine Culture - ORD Diagnostic Imaging: Viewed by Me: Radiology Read. Discussed w/RAD: Radiology Read. CXR Impression: no acute abnormality, no infiltrates Initial ED EKG: AFIB, nonspecific ST T wave chg Prior EKG: unchanged Rhythm Strip: atrial fibrillation Departure Departure Disposition: STILL A PATIENT Condition: Stable Clinical Impression Primary Impression: Decompensated COPD with exacerbation (chronic obstructive pulmonary disease ) Secondary Impressions: Acute kidney injury, CHF (congestive heart failure) Referrals: Tramaine Rees MD (PCP/Family) Departure Forms: Customer Survey General Discharge Information Admission Note Spoke With: Ana Muse MD Documentation of Exam: Documentation of any treatments & extenuating circumstances including Concerns Regarding Discharge (functional status, medication knowledge or non-compliance, living conditions, etc.) that warrant an admission rather than observation: Supplemental oxygen CPAP medication adjustment physical therapy serial lab exam gentle diuresis continuing care discharge planning Critical Care Note Critical Care Note Critical Care Time: 30-74 min (35)
[2018-05-20 01:16] LABS: ABSOLUTE BASOPHIL COUNT 0.1 /CUMM (0.0-0.2); ABSOLUTE EOSINOPHIL COUNT 0.2 /CUMM (0.0-0.7); ABSOLUTE GRANULOCYTE CT 4.9 /CUMM (1.4-6.5); ABSOLUTE LYMPH COUNT 2.2 /CUMM (1.2-3.4); ABSOLUTE MONOCYTE COUNT 0.6 /CUMM (0.10-0.60); BASOPHIL % 0.9 % (0.0-2.0); EOSINOPHIL % 2.9 % (0-5); GRANULOCYTE % 60.9 % (42.2-75.2); HEMATOCRIT 37.2 % (42-52); MEAN CORPUSCULAR HGB CONC 33.7 G/DL (33.0-37.0); MEAN PLATELET VOLUME 9.5 FL (7.4-10.4); PLATELET COUNT 190 /CUMM (130-400); RBC DISTRIBUTION WIDTH 14.6 % (11.5-14.5); RED BLOOD CELL CT 4.32 /CUMM (4.70-6.10)
--- NOTE | 2018-05-20 02:51 | History & Physical ---
MatthewPalomai 05/20/18 0250: General Information and HPI MD Statement: I have seen and personally examined CLAUDINE HAYDEN and documented this H&P. The patient is a 67 year old M who presented with a patient stated chief complaint of []. Source of Information: patient History of Present Illness: This 67 yo gentleman with PMH significant for HTN (diagnosed when he was 16), Afib s/p cardioversion 5 years ago, NIDDM, CKD, ROB, Melanoma, Prosatate cancer s/p TURP, is briought in to the ED by his because she feels he has been more lethargic than usual for the past few days. The patient endorses the same and feels that his symptoms started a week ago when he developed urine retention which has been constantly worsening. Notably, the patient was taught to self cathetarise himself but he never felt the need to given that he could satisfactorilly urinate without problems till a week and a half ago. Presently, he complains of hesitancy , poor stream, straining and urgency, each progressively gettng worse by the day. He also complains of pedal edema for the past 2 days. He denies chest pain, SOB, palpiatations or acute decrease in exercise tolerance. He does not report orthopnea and sleeps with the same number of pillows that he used to. He does complain about not getting enough sleep with multiple awakenings and not feeling refreshed when he gets up. Allergies/Medications Allergies: Coded Allergies: venom-honey bee (bee venom (honey bee)) (Severe, ANAPHYLAXIS 12/08/17) ibuprofen (Intermediate, KIDNEYS 12/08/17) Home Med list Amlodipine Besylate 10 MG TABLET 1 TAB PO DAILY HEART/BP (Reported) Apixaban (Eliquis) 5 MG TABLET 1 TAB PO BID BLOOD THINNER (Reported) Atenolol 50 MG TABLET 1 TAB PO BID HEART/BP (Reported) Atorvastatin Calcium (Lipitor) 40 MG TABLET 1 TAB PO DAILY CHOLESTEROL ( Reported) Bupropion HCl (Bupropion XL) 300 MG TAB.ER.24H 1 TAB PO QAM DEPRESSION/ANXIETY (Reported) Diltiazem HCl 30 MG TABLET 1 TAB PO BID HEART RATE (Reported) Duloxetine HCl (Cymbalta) 60 MG CAPSULE.DR 1 CAP PO DAILY Depression ( Reported) Furosemide (Lasix) 40 MG TABLET 1 TAB PO DAILY SWELLING (Reported) Glimepiride (Amaryl) 1 MG TABLET 1 TAB PO DAILY DM (Reported) Morphine Sulfate (Morphine Sulfate ER) 15 MG TABLET.ER 1 TAB PO BID PAIN ( Reported) Morphine Sulfate 15 MG TABLET 1 TAB PO BID PAIN (Reported) Multiple Vitamin (Multivitamins) 1 EACH TABLET 1 TAB PO DAILY SUPPLEMENT ( Reported) Pregabalin (Lyrica) 200 MG CAPSULE 1 CAP PO TID NEUROPATHY (Reported) Tamsulosin HCl 0.4 MG CAP.ER.24H 1 CAP PO BID (Reported) Past History Travel History Traveled to [place] past 21 day No Medical History Neurological: TIA X 2 EENT: hearing loss, rhinitis Cardiovascular: AFIB, hypertension, hyperlipidemia Respiratory: obstructive sleep apnea, pneumonia, USES CPAP Gastrointestinal: constipation, hiatal hernia Hepatic: NONE Renal: chronic kidney disease, "SHUT DOWN ONCE" PER DAUG HAS SAN CATHETER Musculoskeletal: chronic back pain, disk herniation, gout, osteoarthritis Psychiatric: NONE Endocrine: diabetes, NIDDM Blood Disorders: NONE Cancer(s): melanoma, prostate cancer 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 spouse Services at Home: None Functional Ability ADLs Independent: dressing, eating, toileting, bathing. Ambulation: walker IADLs Independent: shopping, housework, finances, food prep, telephone, medication admin. Review of Systems Review of Systems Constitutional: Reports: malaise, weakness. Denies: chills, diaphoresis, fever, unexplained weight loss. EENTM: Reports: no symptoms. Cardiovascular: Reports: edema, peripheral edema. Denies: chest pain, orthopena, palpitations, syncope. Respiratory: Denies: cough, hemoptysis, orthopnea, short of breath. GI: Reports: no symptoms. Genitourinary: Reports: frequency, hesitation, urgency. Musculoskeletal: Reports: back pain, joint pain. Skin: Reports: change in skin color, erythema. Neurological/Psychological: Reports: no symptoms, see HPI. Hematologic/Endocrine: Reports: bruising, bleeding. Exam & Diagnostic Data Last 24 Hrs of Vital Signs/I&O Vital Signs Date Time Temp Pulse Resp B/P B/P Pulse O2 O2 Flow FiO2 Mean Ox Delivery Rate 05/20 0136 69 92 05/20 0022 97.6 70 20 140/90 96 Room Air 05/19 2238 97.2 82 17 140/79 95 Room Air Intake & Output 05/20 0800 05/20 0000 05/19 1600 Intake Total Output Total Balance Patient 278 lb Weight Weight Reported by Patient Measurement Method Physical Exam General Appearance Alert, Oriented X3, Cooperative, No Acute Distress Skin No Rashes, No Breakdown Skin Temp/Moisture Exam: Warm/Dry Sepsis Skin Exam (color): Flushed HEENT Atraumatic, PERRLA Neck Supple Cardiovascular Normal S1, Normal S2, Faint heart sounds Abdomen Normal Bowel Sounds, Soft, No Tenderness Neurological Normal Speech, Strength at 5/5 X4 Ext, Normal Tone Extremities B/L pedal edema +, B/L venous stasis Assessment/Plan Assessment: 67 yo gentleman with multiple co-morbities is brought in to the ED by his because she thinks that he has been more lethargic than usual. The patient has PMH of prostate cancer s/p TURP and complains of progressively worsening urine retention for one and a half weeks. He has been straining, hesitancy and has had a poor stream. No complaints of chest pain, palpitations, shortness of breath, orthopnea. Patient does report pedal edema for the past 2 days. On examination , the patient is on BIPAP, he appears to be in mild distress, but he is alert and cooperativs. His heart sounds are distant. He has B/L significant venous stasis and PE. His WBC is 4.32, Hb:12.5, BUN: 28, CREAT:2.0, PRO BNP: 1640, pH: 7.30, pco2: 57, po2:64. PALN -We will admit the patient to [facility] -40mg LASix BID with San's in place -Trend weight -Morphine for pain control -Continue home meds DVT prophylaxis: Continue Eliquis code status: full code As Ranked By This Provider Problem List: 1. ACUTE HYPERCARBIC RESP FAILURE 2. Chronic back pain 3. Diabetes mellitus 4. History of - hypertension 5. Hyperlipidemia 6. Insomnia 7. Urinary retention 8. Chronic back pain 9. Sleep apnea 10. CHF (congestive heart failure) 11. S/P TURP (status post transurethral resection of prostate) Core Measures/Misc (07/12) Acute Coronary Syndrome ACS Diagnosis: No Congestive Heart Failure Congestive Heart Failure Diagnosis Yes Cerebrovascular Accident CVA/TIA Diagnosis: No VTE (View Protocol) VTE Risk Factors Age>40 No Mechanical VTE Prophylaxis d/t N/A MechProphylax Ordered No VTE Pharm Prophylaxis d/t NA PharmProphylax ordered Sepsis (View protocol) Sepsis Present: No If YES complete Sepsis Event Note If YES complete Sepsis Event Note Ana Muse MD 05/20/18 0256: Core Measures/Misc (07/12) Sepsis (View protocol) If YES complete Sepsis Event Note If YES complete Sepsis Event Note Attending MD Review Statement Attending Statement Attending MD Statement: examined this patient, discuss w/resident/PA/PROCEDURES RN, agreed w/resident/PA/PROCEDURES RN, reviewed EMR data (avail) Attending Assessment/Plan: 67M PMH atrial fibrillation s/p cardioversion, T2DM, CKD stage IIIB, CVA, BPH with urinary retention s/p TURP, prostate cancer, ROB on CPAP, depression, chronic lower back pain s/p vetebral fusion surgery presenting with several days of progressive lower extremity edema, difficulty urinating, and daytime sleepiness. ABG done shows 7.30 with pCO2 64, placed on BiPAP, with improvement in mental status. Patient has no respiratory complaints at this time, is awake and alert. He does report lower back pain that is chronic and relieved with Morphine IR 15mg, which he was just given in ER. 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 Legs are 2+ bilaterally. 1. Acute on chronic right sided CHF 2. Bilateral lower extremity edema 3. Acute hypercapnic respiratory failure 4. Chronic urinary retention Plan - Admit to telemetry - Lasix 40mg IV BID - I/O, daily weights - Continue BiPAP - Continue Flomax - Place San catheter - Continue home IR Morphine, hold ER Morphine for now - Pulmonary and urology consults - Continue remaining home medications - DVT PPx Sebas Shaffer MD 05/20/18 0556: Core Measures/Misc (07/12) Sepsis (View protocol) If YES complete Sepsis Event Note If YES complete Sepsis Event Note Resident Review Statement Resident Statement: examined this patient, discussed with sports internship, agreed with sports internship, reviewed EMR data (avail) Other Findings: History of present illness 67-year-old man with past medical history of hypertension, atrial fibrillation, [id number] diabetes mellitus, chronic kidney disease, ROB noncompliant with CPAP, melanoma, and prostate cancer status post TURP brought in by his for evaluation of somnolence over the past several days. Patient reports that approximately a week ago he started to retain urine and had been tracking each day only voiding approximately 50 cc each time. Currently he is complaining of poor stream, urinary hesitancy, straining, and urgency that has been progressively worsening. Additionally he reports that his lower extremities have been having increasing swelling over the past few days. He stopped using his CPAP machine on November 26 for unclear reasons; patient states that he "did not need it anymore". Patient was placed on BiPAP overnight and was unable to offer any subjective complaints or review of systems. On reevaluation this morning he appears awake and alert and oriented to person, place, and time. He denies any fever, chills, chest pain, shortness breath, abdominal pain but does admit to his chronic back pain Objective Vitals: Temp 97. 2-97.6, HR 69-82, RR 17-20, BP 140/90, O2 92-96% on room air physical exam -General: Morbidly obese elderly man in no acute distress -HEENT: NCAT, Agusto, EOMI, anicteric sclera, moist mucous membranes -Neck: Supple, no obvious JVP, trachea midline, no accessory respiratory muscle use -Cardio: Faint heart sounds -Pulmonary: Diminished bibasilar airflow -Abdomen: Soft, nontender, mildly distended, bowel sounds intact, ventral abdominal hernia -Neuro: Awake and alert, oriented 3, cranial nerves II through XII grossly intact -Extremities: 4+ bilateral lower extremity pitting edema, bilateral erythema/ swelling up to mid muñoz with wounds in various stages of healing and minor associated drainage Assessment 67-year-old morbidly obese man with significant history of ROB noncompliant with CPAP and prostate cancer status post prostatectomy seen for evaluation of shortness of breath and lethargy. Patient was initially obtunded and unable to offer complaints but presently feels well. Vital signs remain within normal limits. Physical examination is grossly unremarkable other than his chronic lower extremity skin changes and swelling. Significant labs include creatinine 2.0, BNP 1600, troponin I <0.01, WBC 8.0, pH 7.3, PCO2 57, PO2 64. Chest x-ray is unremarkable. Patient received intravenously in the ED. Clinically patient appears to have acute hypoxic/hypercarbic respiratory failure secondary to ROB/right heart failure in the context of CPAP noncompliance. Additionally he appears to have new acute urinary retention with history of prostate. Patient is to be admitted to the telemetry floor for telemetry monitoring, respiratory support, intravenous diuresis, pulmonology evaluation, and urology evaluation. Problem list -lower extremity swelling, likely due to right-sided heart failure -acute on chronic hypercarbic respiratory failure -Acute urinary retention -ROB, noncompliant with CPAP -Hypertension -Atrial fibrillation -[id number]-qjxpehvej diabetes mellitus -Chronic kidney disease -Melanoma -History of prostate cancer status post resection Plan -Admit to telemetry floor -Telemetry monitoring -BiPAP -Total respiratory care -San catheter -Strict ins and outs, daily weights -Accu-Cheks 3 times daily before meals/at bedtime -Lasix 40 mg IV twice daily -Continue home meds: MSIR, MS extended release, Lyrica, Flomax, multivitamin, atorvastatin, Cymbalta, atenolol -Hold oral hypoglycemics -Consult with pulmonology for respiratory failure -Consult with urology for acute urinary retention -Pain control with MSIR -n.p.o. while on BiPAP, advance as tolerated -DVT prophylaxis with Eliquis -Full code
[2018-05-20] MEDS ORDERED: LYRICA200 M1 PO (04:04)
[2018-05-20] MEDS ORDERED: CYMBALTA60 M1 PO (04:05)
[2018-05-20 06:07] LABS: ABSOLUTE BASOPHIL COUNT 0.1 /CUMM (0.0-0.2); ABSOLUTE EOSINOPHIL COUNT 0.3 /CUMM (0.0-0.7); ABSOLUTE GRANULOCYTE CT 4.6 /CUMM (1.4-6.5); ABSOLUTE LYMPH COUNT 2.1 /CUMM (1.2-3.4); ABSOLUTE MONOCYTE COUNT 0.6 /CUMM (0.10-0.60); BASOPHIL % 1.1 % (0.0-2.0); EOSINOPHIL % 3.4 % (0-5); HEMATOCRIT 37.9 % (42-52); MEAN CORPUSCULAR HGB 28.9 PG (27.0-31.0); MEAN CORPUSCULAR HGB CONC 33.3 G/DL (33.0-37.0); MEAN CORPUSCULAR VOLUME 86.6 FL (80.0-94.0); MEAN PLATELET VOLUME 9.3 FL (7.4-10.4); PLATELET COUNT 187 /CUMM (130-400); RBC DISTRIBUTION WIDTH 14.4 % (11.5-14.5); RED BLOOD CELL CT 4.38 /CUMM (4.70-6.10); WHITE BLOOD CELL COUNT 7.6 /CUMM (4.8-10.8)
--- NOTE | 2018-05-20 07:12 | PN- Housestaff ---
Ozzy Hendrickson 05/20/18 0711: Subjective Follow-up For: Acute on Chronic right sided CHF Acute hypercapnic respiratory failure Chronic Urinary Retention Subjective: Patient seen and examined at bedside this morning. Was somnolescent and slightly difficult to awaken. However patient denies any complaints at this time. He has a Mcleod catheter in producing adequate urine. No hematuria present in Mcleod catheter. Patient denies any chest pain, shortness of breath, palpitations, abdominal pain. Patient is off BiPAP and on room air saturating well. Review of Systems Constitutional: Denies: see HPI. Objective Last 24 Hrs of Vital Signs/I&O Vital Signs Date Time Temp Pulse Resp B/P B/P Pulse O2 O2 Flow FiO2 Mean Ox Delivery Rate 05/20 0846 94 Room Air Room Air 05/20 0833 81 129/71 05/20 0833 81 129/71 05/20 0832 97.5 81 20 129/71 94 Room Air Room Air 05/20 0636 67 89 05/20 0540 97.4 75 20 137/66 93 Room Air 05/20 0339 73 92 05/20 0136 69 92 05/20 0022 97.6 70 20 140/90 96 Room Air 05/19 2238 97.2 82 17 140/79 95 Room Air Intake & Output 05/20 1600 05/20 0800 05/20 0000 Intake Total Output Total 325 Balance -325 Output, Urine 325 Patient 278 lb 278 lb Weight Weight Reported by Patient Measurement Method Physical Exam General Appearance: Alert, Oriented X3, Cooperative Skin: bilateral lower extremitiy venous changes/edema HEENT: PERRLA, EOMI, Mucous Membr. moist/pink Cardiovascular: Regular Rate, Normal S1, Normal S2 Lungs: Clear to Auscultation, Normal Air Movement, decreeased breath sounds Abdomen: Distended, nontender, normal bowel sounds Neurological: Normal Speech, Strength at 5/5 X4 Ext, Normal Tone, Sensation Intact, Reflexes 2+ Extremities: No Clubbing, No Cyanosis, Signfiicant lower extremity edema, erythema, skin changes, +2 Pitting Vascular: Normal Pulses, Pulses Symmetrical Current Medications: Current Medications Sig/Donny Start time Last Medication Dose Route Stop Time Status Admin Acetaminophen 1,000 MG Q6P PRN 05/20 0400 AC IV Apixaban 5 MG BID 05/20 0900 AC 05/20 PO 0833 Atenolol 50 MG BID 05/20 09 AC 05/20 PO 0833 Atorvastatin Calcium 40 MG DAILY 05/20 900 AC 05/20 PO 0833 Bupropion HCl 300 MG QAM 05/20 900 AC 05/20 PO 0915 Duloxetine HCl 60 MG DAILY 05/20 900 AC 05/20 PO 0833 Furosemide 0 .STK-MED ONE 05/20 0741 DC IV Furosemide 40 MG 7:30 AM, & 4:30 PM 05/20 730 AC 05/20 IV 0833 Furosemide 0 .STK-MED ONE 05/20 031 DC IV Furosemide 40 MG ONCE ONE 05/20 0300 DC 05/20 IV 05/20 030 0314 Heparin Sodium 0 .STK-MED ONE 05/20 0619 DC (Porcine) .ROUTE Heparin Sodium 5,000 UNIT Q8 05/20 06 DC 05/20 (Porcine) SC 0600 Insulin Aspart 0 TIDAC 05/20 1200 AC SC Morphine Sulfate 15 MG BID 05/20 09 AC 05/20 PO 0833 Morphine Sulfate 15 MG ONCE ONE 05/20 0230 DC 05/20 PO 05/20 0231 0256 Multivitamins 1 TAB DAILY 05/20 09 AC 05/20 Therapeutic PO 0833 Pregabalin 200 MG TID 05/20 900 AC 05/20 PO 0833 Pregabalin 0 .STK-MED ONE 05/20 0807 DC PO Tamsulosin HCl 0.4 MG BID 05/20 09 AC 05/20 PO 0833 Last 24 Hrs of Lab/Charles Results Last 24 Hrs of Labs/Mics: Laboratory Tests 05/20/18 0536: Anion Gap 11, Estimated GFR 38 L, BUN/Creatinine Ratio 15.6, Magnesium 2.0, CBC w Diff NO MAN DIFF REQ, RBC 4.38 L, MCV 86.6, MCH 28.9, MCHC 33.3, RDW 14.4, MPV 9.3, Gran % 60.0, Lymphocytes % 27.2, Monocytes % 8.3, Eosinophils % 3.4, Basophils % 1.1, Absolute Granulocytes 4.6, Absolute Lymphocytes 2.1, Absolute Monocytes 0.6, Absolute Eosinophils 0.3, Absolute Basophils 0.1 05/20/18 0306: Urinalysis LIGHT H, Urine Color YEL, Urine Clarity CLEAR, Urine pH 6.0, Ur Specific Wilson 1.025, Urine Protein 100 H, Urine Ketones NEG, Urine Nitrite NEG, Urine Bilirubin NEG, Urine Urobilinogen 0.2, Ur Leukocyte Esterase NEG, Ur Microscopic SEDIMENT EXAMINED, Urine RBC 1-3, Urine Bacteria RARE H, Urine Mucus FEW, Urine Hemoglobin NEG, Urine Glucose NEG 05/20/18 0105: pH 7.30 *L, pCO2 57 H, pO2 64 L, HCO3 27, ABG O2 Sat (Measured) 91.0 L, P-50 (Temp Corrected) Y, Carboxyhemoglobin 0.2 L, O2 Concentration % RA, Temperature 97.6, Phlebotomy Draw Site RIGHT RADIAL 05/20/18 005: Magnesium 2.1, Troponin I < 0.01 05/20/18 005: Anion Gap 12, Estimated GFR 33 L, BUN/Creatinine Ratio 14.0, Glucose 145 H, Calcium 8.4, Total Bilirubin 0.4, AST 18, ALT 25, Alkaline Phosphatase 138 H, Troponin I < 0.01, [id number] Pept 1640 H, Total Protein 6.5, Albumin 3.7, Globulin 2.8, Albumin/Globulin Ratio 1.3, CBC w Diff NO MAN DIFF REQ, RBC 4.32 L, MCV 86.0, MCH 29.0, MCHC 33.7, RDW 14.6 H, MPV 9.5, Gran % 60.9, Lymphocytes % 27.4, Monocytes % 7.9, Eosinophils % 2.9, Basophils % 0.9, Absolute Granulocytes 4.9, Absolute Lymphocytes 2.2, Absolute Monocytes 0.6, Absolute Eosinophils 0.2, Absolute Basophils 0.1 Microbiology 05/20 0306 URINE ROUT: Urine Culture - RECD Assessment/Plan Assessment: 67M PMH atrial fibrillation s/p cardioversion, T2DM, CKD stage IIIB, CVA, BPH with urinary retention s/p TURP, prostate cancer, ROB on CPAP, depression, chronic lower back pain s/p vetebral fusion surgery presenting with several days of progressive lower extremity edema, difficulty urinating, and daytime sleepiness. ABG done shows 7.30 with pCO2 64, placed on BiPAP, with improvement in mental status. Patient has no respiratory complaints at this time, is awake and alert. He does report lower back pain that is chronic and relieved with Morphine IR 15mg, which he was just given in ER. 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 Legs are 2+ bilaterally. Troponin is negative and chest x-ray negative for any acute cardiac pulmonology pathology, but stable prominent cardiac silhouette. Problem list: 1. Acute on Chronic right sided CHF 2. Acute hypercapnic respiratory failure-off BiPAP 3. Chronic Urinary Retention Acute on chronic right-sided heart failure * Cardiology consulted * Pulmonology consulted. Patient follows up with Dr. Parikh for the past 5 years. * Follow-up on echocardiogram * Continue patient on IV Lasix 40 mg * Monitor ins and outs; daily weights * Continue to monitor on telemetry given past history of atrial fibrillation on Eliquis * Continue atenolol 50 mg twice daily Acute hypercapnic respiratory failure Patient presents to the ED with abnormal ABG 7.30 with pCO2 64, placed on BiPAP, with improvement in mental status. Patient stopped using his CPAP in November. * Pulmonology consulted * Follow-up on echocardiogram * Advised patient to use CPAP continuously * Patient has chronic lower extremity edema leading to right heart failure secondary to noncompliance with CPAP Chronic urinary retention Patient has a past medical history of prostate cancer diagnosed in January 2018 status post TURP 2. Patient is on Flomax and follows up with the urologist at [facility]. * Dr. Pacheco of urology consulted. * Continue Mcleod catheter and monitor urine output * Patient on IV Lasix 40 mg * Continue Flomax * Monitor BUN/creatinine; currently 1.8 from 2.0 on admission. Patient's baseline is around 1.5. CODE STATUS: Full code Diet: Regular diet DVT prophylaxis: Eliquis Problem List: 1. ACUTE HYPERCARBIC RESP FAILURE 2. Chronic back pain 3. Mcleod catheter in place 4. CHF (congestive heart failure) Pain Ratin Pain Location: No pain at this time Pain Goal: Remain pain free Pain Plan: As per pain pathway Tomorrow's Labs & Rationales: CBC Alisha Shannon 05/20/18 1235: Attending MD Review Statement Attending Statement Attending MD Statement: examined this patient, discuss w/resident/PA/FITTER / WELDER, agreed w/resident/PA/FITTER / WELDER, reviewed EMR data (avail), discussed with nursing, discussed with case mgmt Attending Assessment/Plan: acute hypercapneic resp failure in pt with morbid obesity and ROB not using his CPAP. pt was put on bipap overnight and his resp failure has resolved now. Currently much more alert and oriented. Acute metabolic encephalopathy secondary to above. resolved now . Urinary retention in pt with BPH and prostate cancer- now has mcleod cath. Urology to see him today. Afib - on eliquis. rate controlled. CARLOS on CKD- better today at 1.8. from 2.0 at admission. Likely sec to urinary retention. dw pt the care plan.
[2018-05-20] MEDS ORDERED: BUPROPION XL300 M1 PO (08:12)
--- NOTE | 2018-05-20 12:09 | Cons- Cardiology ---
General Information and HPI Consulting Request Date of Consult: 05/20/18 Requested By: Alisha Chaves MD Reason for Consult: Heart failure History of Present Illness: The patient is a 67-year-old male with history of hypertension, atrial fibrillation status post cardioversion, diabetes mellitus, chronic kidney disease, prostate cancer status post TURP, and obstructive sleep apnea. He was brought to the emergency department for increased lethargy. He has recently been having urinary retention which has worsened his symptoms. He notes lower extremity edema for the past few days. He complains of recent increased shortness of breath. No palpitations. No diaphoresis. No orthopnea. No nausea or vomiting. He has not recently been using his CPAP. Allergies/Medications Allergies: Coded Allergies: venom-honey bee (bee venom (honey bee)) (Severe, ANAPHYLAXIS 12/08/17) ibuprofen (Intermediate, KIDNEYS 12/08/17) Home Med List: Amlodipine Besylate 10 MG TABLET 1 TAB PO DAILY HEART/BP (Reported) Apixaban (Eliquis) 5 MG TABLET 1 TAB PO BID BLOOD THINNER (Reported) Atenolol 50 MG TABLET 1 TAB PO BID HEART/BP (Reported) Atorvastatin Calcium (Lipitor) 40 MG TABLET 1 TAB PO DAILY CHOLESTEROL ( Reported) Bupropion HCl (Bupropion XL) 300 MG TAB.ER.24H 1 TAB PO QAM DEPRESSION/ANXIETY (Reported) Diltiazem HCl 30 MG TABLET 1 TAB PO BID HEART RATE (Reported) Duloxetine HCl (Cymbalta) 60 MG CAPSULE.DR 1 CAP PO DAILY Depression ( Reported) Furosemide (Lasix) 40 MG TABLET 1 TAB PO DAILY SWELLING (Reported) Glimepiride (Amaryl) 1 MG TABLET 1 TAB PO DAILY DM (Reported) Morphine Sulfate (Morphine Sulfate ER) 15 MG TABLET.ER 1 TAB PO BID PAIN ( Reported) Morphine Sulfate 15 MG TABLET 1 TAB PO BID PAIN (Reported) Multiple Vitamin (Multivitamins) 1 EACH TABLET 1 TAB PO DAILY SUPPLEMENT ( Reported) Pregabalin (Lyrica) 200 MG CAPSULE 1 CAP PO TID NEUROPATHY (Reported) Tamsulosin HCl 0.4 MG CAP.ER.24H 1 CAP PO BID (Reported) Current Medications: Current Medications Sig/Donny Start time Last Medication Dose Route Stop Time Status Admin Acetaminophen 1,000 MG Q6P PRN 05/20 0400 AC IV Apixaban 5 MG BID 05/20 09 AC 05/20 PO 0833 Atenolol 50 MG BID 05/20 09 AC 05/20 PO 0833 Atorvastatin Calcium 40 MG DAILY 05/20 09 AC 05/20 PO 08 Bupropion HCl 300 MG QAM 05/20 09 AC 05/20 PO 0915 Duloxetine HCl 60 MG DAILY 05/20 09 AC 05/20 PO 0833 Furosemide 0 .STK-MED ONE 05/20 0741 DC IV Furosemide 40 MG 7:30 AM, & 4:30 PM 05/20 0730 AC 05/20 IV 1612 Furosemide 0 .STK-MED ONE 05/20 0311 DC IV Furosemide 40 MG ONCE ONE 05/20 0300 DC 05/20 IV 05/20 0301 0314 Heparin Sodium 0 .STK-MED ONE 05/20 0619 DC (Porcine) .ROUTE Heparin Sodium 5,000 UNIT Q8 05/20 06 DC 05/20 (Porcine) SC 0600 Insulin Aspart 0 TIDAC 05/20 1200 AC 05/20 SC 1240 Morphine Sulfate 15 MG Q12H 05/20 1630 AC 05/20 PO 1632 Morphine Sulfate 15 MG BID 05/20 09 AC 05/20 PO 0833 Morphine Sulfate 15 MG ONCE ONE 05/20 0230 DC 05/20 PO 05/20 0231 0256 Multivitamins 1 TAB DAILY 05/20 09 AC 05/20 Therapeutic PO 08 Pregabalin 0 .STK-MED ONE 05/20 1415 DC PO Pregabalin 200 MG TID 05/20 09 AC 05/20 PO 1417 Pregabalin 0 .STK-MED ONE 05/20 0807 DC PO Tamsulosin HCl 0.4 MG BID 05/20 0900 AC 05/20 PO 0833 Review of Systems Review of Systems: No fever. No chills. No rash. No tremor. All other systems were reviewed, and were noted to be negative. 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 Home Who Do You Live With? spouse Services at Home: None Smoking Status: Former Smoker Functional Ability ADLs Independent: dressing, eating, toileting, bathing. Ambulation: walker IADLs Independent: shopping, housework, finances, food prep, telephone, medication admin. ECHO Results (as available) Report: CONCLUSIONS 1. Moderate aortic sclerosis is present with minimal aortic insufficiency. 2. Mitral leaflet thickening is present with mild mitral insufficiency and mild to moderate left atrial dilatation. 3. The left atrial appendage is multilobed with no evidence of thrombus. 4. The pulmonary venous anatomy is normal bilaterally. 5. The left ventricular chamber size and systolic function appear normal. LVH is present. 6. Mild dilatation of the right heart chambers is presnet with mild tricuspid and pulmonic insufficiency. 7. The atrial septum appear anatomically intact. By agitated contrast saline injection, there is a tiny resting right to left shunt present consistent with a PFO. 8. Grade II atheromatous plaque is present in the thoracic aorta. 9. A focal abnormal echodensity is present in the anterior aspect of the ascending aorta which is most consistent with artifact. There is also an illdefined echodensity in the posterior aspect of the distal arch which may represent focal non calcific plaque or artifact. A follow up study ( CTA ) is suggested to reassess the anatomy of the thoracic aorta. Immediately following the MAYELA, while still under Propofol anesthesia, the patient was placed in the supine position. 200 joules of synchronized energy was administered and the patient promptly reverted to NSR. THe patient woke from anesthesia in stable condition with no evidence of complications. The patient was discharged home in stable condition. Exam & Diagnostic Data Vital Signs and I&O Vital Signs Date Time Temp Pulse Resp B/P B/P Pulse O2 O2 Flow FiO2 Mean Ox Delivery Rate 05/20 1615 97.5 85 15 138/86 92 05/20 1557 Room Air 05/20 1527 97.4 89 18 155/84 95 05/20 0846 94 Room Air Room Air 05/20 0833 81 129/71 05/20 0833 81 129/71 05/20 0832 97.5 81 20 129/71 94 Room Air Room Air 05/20 0636 67 89 05/20 0540 97.4 75 20 137/66 93 Room Air 05/20 0339 73 92 05/20 0136 69 92 05/20 0022 97.6 70 20 140/90 96 Room Air 05/19 2238 97.2 82 17 140/79 95 Room Air Intake & Output 05/20 0805/20 0000 05/19 1600 05/19 0805/19 0000 Intake Total 1100 Output Total 1050 Balance 50 Intake, Oral 1100 Output, Urine 1050 Patient 309 lb 278 lb 278 lb Weight Weight Bed scale Reported by Patient Measurement Method Physical Exam: Gen: The patient is in no acute distress HEENT: Normal nose, ears, and oropharynx. Pupils equal bilaterally. Conjunctiva normal. Neck: Supple with no JVD, no masses, and no thyromegaly Lungs: Decreased breath sound with normal respiratory effort Heart: RRR, S1, S2, 1/6 systolic murmur. 3+ peripheral edema, 2+ pulses in the lower extremities bilaterally Abdomen: Soft, nontender, no masses. No hepatomegaly. No splenomegaly Extremities: No clubbing or cyanosis. Normal muscle strength in the upper and lower extremities Skin: Normal skin turgor with no skin ulcers or lesions noted. Neuro: Cranial nerves intact. Sensation intact Psych: Alert and oriented x 3 with appropriate affect Labs/Charles Results: Laboratory Tests 05/20 05/20 1630 0536 Chemistry Sodium (137 - 145 mmol/L) 136 L Potassium (3.5 - 5.1 mmol/L) 3.9 Chloride (98 - 107 mmol/L) 98 Carbon Dioxide (22 - 30 mmol/L) 26 Anion Gap (5 - 16) 11 BUN (9 - 20 mg/dL) 28 H Creatinine (0.7 - 1.2 mg/dL) 1.8 H Estimated GFR (>60 ml/min) 38 L BUN/Creatinine Ratio (7 - 25 %) 15.6 Magnesium (1.6 - 2.3 mg/dL) 2.0 Hematology CBC w Diff NO MAN DIFF REQ WBC (4.8 - 10.8 /CUMM) 7.6 RBC (4.70 - 6.10 /CUMM) 4.38 L Hgb (14.0 - 18.0 G/DL) 12.6 L Hct (42 - 52 %) 37.9 L MCV (80.0 - 94.0 FL) 86.6 MCH (27.0 - 31.0 PG) 28.9 MCHC (33.0 - 37.0 G/DL) 33.3 RDW (11.5 - 14.5 %) 14.4 Plt Count (130 - 400 /CUMM) 187 MPV (7.4 - 10.4 FL) 9.3 Gran % (42.2 - 75.2 %) 60.0 Lymphocytes % (20.5 - 51.1 %) 27.2 Monocytes % (1.7 - 9.3 %) 8.3 Eosinophils % (0 - 5 %) 3.4 Basophils % (0.0 - 2.0 %) 1.1 Absolute Granulocytes (1.4 - 6.5 /CUMM) 4.6 Absolute Lymphocytes (1.2 - 3.4 /CUMM) 2.1 Absolute Monocytes (0.10 - 0.60 /CUMM) 0.6 Absolute Eosinophils (0.0 - 0.7 /CUMM) 0.3 Absolute Basophils (0.0 - 0.2 /CUMM) 0.1 Toxicology Urine Opiates Screen (>2000 NG/ML) > 4000.00 H Methadone Screen (>300 NG/ML) 73 Barbiturate Screen (>200 NG/ML) < 60 Ur Phencyclidine Scrn (>25 NG/ML) < 6.00 Amphetamines Screen (>1000 NG/ML) 486 U Benzodiazepines Scrn (>200 NG/ML) < 85 Urine Cocaine Screen (>300 NG/ML) < 50 Urine Cannabis Screen (>50 NG/ML) < 5.00 05/20 05/20 0306 0105 Blood Gas pH (7.35 - 7.45 PH) 7.30 *L pCO2 (35 - 45 TORR) 57 H pO2 (80 - 100 TORR) 64 L HCO3 (21 - 28 MEQ/L) 27 ABG O2 Sat (Measured) (>96.0 %) 91.0 L P-50 (Temp Corrected) Y Carboxyhemoglobin (1.5 - 5.0 %) 0.2 L O2 Concentration % RA Temperature (97.0 - 100.0 FARH) 97.6 Miscellaneous Phlebotomy Draw Site RIGHT RADIAL Urines Urinalysis LIGHT H Urine Color (YEL,AMB,STR) YEL Urine Clarity (CLEAR) CLEAR Urine pH (5.0 - 8.0) 6.0 Ur Specific [place] (1.001 - 1.035) 1.025 Urine Protein (NEG,<30 MG/DL) 100 H Urine Ketones (NEG) NEG Urine Nitrite (NEG) NEG Urine Bilirubin (NEG) NEG Urine Urobilinogen (0.1 - 1.0 EU/dl) 0.2 Ur Leukocyte Esterase (NEG) NEG Ur Microscopic SEDIMENT EXAMINED Urine RBC (0 - 5 /HPF) 1-3 Urine Bacteria (NEG/NONE) RARE H Urine Mucus (FEW,NONE) FEW Urine Hemoglobin (NEG) NEG Urine Glucose (N MG/DL) NEG 05/20 05/20 0052 0052 Chemistry Sodium (137 - 145 mmol/L) 138 Potassium (3.5 - 5.1 mmol/L) 4.2 Chloride (98 - 107 mmol/L) 97 L Carbon Dioxide (22 - 30 mmol/L) 29 Anion Gap (5 - 16) 12 BUN (9 - 20 mg/dL) 28 H Creatinine (0.7 - 1.2 mg/dL) 2.0 H Estimated GFR (>60 ml/min) 33 L BUN/Creatinine Ratio (7 - 25 %) 14.0 Glucose (65 - 99 mg/dL) 145 H Calcium (8.4 - 10.2 mg/dL) 8.4 Magnesium (1.6 - 2.3 mg/dL) 2.1 Total Bilirubin (0.2 - 1.3 mg/dL) 0.4 AST (17 - 59 U/L) 18 ALT (21 - 72 U/L) 25 Alkaline Phosphatase (< 127 U/L) 138 H Troponin I (<0.11 ng/ml) < 0.01 < 0.01 [id number]-[id number]-Gpzkhendtvc Pept (<125 pg/mL) 1640 H Total Protein (6.3 - 8.2 g/dL) 6.5 Albumin (3.5 - 5.0 g/dL) 3.7 Globulin (1.9 - 4.2 gm/dL) 2.8 Albumin/Globulin Ratio (1.1 - 2.2 %) 1.3 Hematology CBC w Diff NO MAN DIFF REQ WBC (4.8 - 10.8 /CUMM) 8.0 RBC (4.70 - 6.10 /CUMM) 4.32 L Hgb (14.0 - 18.0 G/DL) 12.5 L Hct (42 - 52 %) 37.2 L MCV (80.0 - 94.0 FL) 86.0 MCH (27.0 - 31.0 PG) 29.0 MCHC (33.0 - 37.0 G/DL) 33.7 RDW (11.5 - 14.5 %) 14.6 H Plt Count (130 - 400 /CUMM) 190 MPV (7.4 - 10.4 FL) 9.5 Gran % (42.2 - 75.2 %) 60.9 Lymphocytes % (20.5 - 51.1 %) 27.4 Monocytes % (1.7 - 9.3 %) 7.9 Eosinophils % (0 - 5 %) 2.9 Basophils % (0.0 - 2.0 %) 0.9 Absolute Granulocytes (1.4 - 6.5 /CUMM) 4.9 Absolute Lymphocytes (1.2 - 3.4 /CUMM) 2.2 Absolute Monocytes (0.10 - 0.60 /CUMM) 0.6 Absolute Eosinophils (0.0 - 0.7 /CUMM) 0.2 Absolute Basophils (0.0 - 0.2 /CUMM) 0.1 Diagnostic Data CXR Results No evidence for acute disease. Stable prominent cardiac silhouette. Assessment/Plan Assessment/Plan 67-year-old male with history of paroxysmal atrial fibrillation, diabetes mellitus, chronic kidney disease, BPH with urinary retention presented with increased lower extremity edema in the setting of acute on chronic urinary retention. He has extensive lower extremity edema consistent with acute on chronic right-sided heart failure likely exacerbated by untreated obstructive sleep apnea Recommendations: * Lasix 40 mrem IV twice a day * Monitor input and output with daily weights * Echocardiogram * Check basic metabolic profile daily * No other cardiac medications Consult Acknowledgment - Thank you for your consult request.
[2018-05-20 16:15] VITALS: BP 138/86
[2018-05-20 20:34] VITALS: BP 122/76
[2018-05-20 22:27] VITALS: BP 144/86
--- NOTE | 2018-05-20 22:57 | Cons- Urology ---
General Information and HPI Consulting Request Date of Consult: 05/20/18 Requested By: Alisha Chaves MD Reason for Consult: urinary retention Source of Information: patient, old records Exam Limitations: no limitations History of Present Illness: This patient has a hx of several prostate surgeries in the past. Approximately 10 years ago he underwent a TURP at [facility] by Dr Arias. In 01/2017 he underwent TURP by Dr Jacobo at [place]. This revealed [place] 6 carcinoma in the pathology specimen. His PSA was less than 1. He was initially referred for radiation therapy but then it was decided that he be treated by observation. Even after his prostate surgeries he continues to have difficulty voiding and has not emptied his bladder well. He underwent w/u at [facility] by Dr Shaw. He underwent urodynamics and was found to have a hypotonic bladder as the cause of his incomplete bladder emptying. Self intermittent catheterization on a prn basis was recommended. He was admitted today with CHF. A san was placed for 225cc of urine Allergies/Medications Allergies: Coded Allergies: venom-honey bee (bee venom (honey bee)) (Severe, ANAPHYLAXIS 12/08/17) ibuprofen (Intermediate, KIDNEYS 12/08/17) Home Med List: Amlodipine Besylate 10 MG TABLET 1 TAB PO DAILY HEART/BP (Reported) Apixaban (Eliquis) 5 MG TABLET 1 TAB PO BID BLOOD THINNER (Reported) Atenolol 50 MG TABLET 1 TAB PO BID HEART/BP (Reported) Atorvastatin Calcium (Lipitor) 40 MG TABLET 1 TAB PO DAILY CHOLESTEROL ( Reported) Bupropion HCl (Bupropion XL) 300 MG TAB.ER.24H 1 TAB PO QAM DEPRESSION/ANXIETY (Reported) Diltiazem HCl 30 MG TABLET 1 TAB PO BID HEART RATE (Reported) Duloxetine HCl (Cymbalta) 60 MG CAPSULE.DR 1 CAP PO DAILY Depression ( Reported) Furosemide (Lasix) 40 MG TABLET 1 TAB PO DAILY SWELLING (Reported) Glimepiride (Amaryl) 1 MG TABLET 1 TAB PO DAILY DM (Reported) Morphine Sulfate (Morphine Sulfate ER) 15 MG TABLET.ER 1 TAB PO BID PAIN ( Reported) Morphine Sulfate 15 MG TABLET 1 TAB PO BID PAIN (Reported) Multiple Vitamin (Multivitamins) 1 EACH TABLET 1 TAB PO DAILY SUPPLEMENT ( Reported) Pregabalin (Lyrica) 200 MG CAPSULE 1 CAP PO TID NEUROPATHY (Reported) Tamsulosin HCl 0.4 MG CAP.ER.24H 1 CAP PO BID (Reported) Past History Medical History Blood Transfusion Hx: No Neurological: TIA X 2 EENT: hearing loss, rhinitis Cardiovascular: AFIB, hypertension, hyperlipidemia Respiratory: obstructive sleep apnea, pneumonia, USES CPAP Gastrointestinal: constipation, hiatal hernia Hepatic: NONE Renal: chronic kidney disease, "SHUT DOWN ONCE" PER DAUG HAS SAN CATHETER Musculoskeletal: chronic back pain, disk herniation, gout, osteoarthritis Psychiatric: NONE Endocrine: diabetes, NIDDM Blood Disorders: NONE Cancer(s): melanoma, prostate cancer 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 Home Who Do You Live With? spouse Services at Home: None Smoking Status: Former Smoker Functional Ability ADLs Independent: dressing, eating, toileting, bathing. Ambulation: walker IADLs Independent: shopping, housework, finances, food prep, telephone, medication admin. Employment History Retired? yes Exam & Diagnostic Data Vital Signs and I&O Vital Signs Date Time Temp Pulse Resp B/P B/P Pulse O2 O2 Flow FiO2 Mean Ox Delivery Rate 05/20 2227 97.4 73 14 144/86 93 05/20 2136 Room Air Room Air 05/20 2053 104 122/76 05/20 2053 104 122/76 05/20 2034 104 122/76 05/20 1615 97.5 85 15 138/86 92 05/20 1557 Room Air 05/20 1527 97.4 89 18 155/84 95 05/20 0846 94 Room Air Room Air 05/20 0833 81 129/71 05/20 0833 81 129/71 05/20 0832 97.5 81 20 129/71 94 Room Air Room Air 05/20 0636 67 89 05/20 0540 97.4 75 20 137/66 93 Room Air 05/20 0339 73 92 05/20 0136 69 92 05/20 0022 97.6 70 20 140/90 96 Room Air Intake & Output 05/20 1600 05/20 0800 05/20 0000 05/19 1600 05/19 0800 05/19 0000 Intake Total 1100 Output Total 1050 Balance 50 Intake, Oral 1100 Output, Urine 1050 Patient 309 lb 278 lb 278 lb Weight Weight Bed scale Reported by Patient Measurement Method Back: No CVA tenderness Abd: soft and non tender Laboratory Tests 05/20 05/20 1630 0536 Chemistry Sodium (137 - 145 mmol/L) 136 L Potassium (3.5 - 5.1 mmol/L) 3.9 Chloride (98 - 107 mmol/L) 98 Carbon Dioxide (22 - 30 mmol/L) 26 Anion Gap (5 - 16) 11 BUN (9 - 20 mg/dL) 28 H Creatinine (0.7 - 1.2 mg/dL) 1.8 H Estimated GFR (>60 ml/min) 38 L BUN/Creatinine Ratio (7 - 25 %) 15.6 Magnesium (1.6 - 2.3 mg/dL) 2.0 Hematology CBC w Diff NO MAN DIFF REQ WBC (4.8 - 10.8 /CUMM) 7.6 RBC (4.70 - 6.10 /CUMM) 4.38 L Hgb (14.0 - 18.0 G/DL) 12.6 L Hct (42 - 52 %) 37.9 L MCV (80.0 - 94.0 FL) 86.6 MCH (27.0 - 31.0 PG) 28.9 MCHC (33.0 - 37.0 G/DL) 33.3 RDW (11.5 - 14.5 %) 14.4 Plt Count (130 - 400 /CUMM) 187 MPV (7.4 - 10.4 FL) 9.3 Gran % (42.2 - 75.2 %) 60.0 Lymphocytes % (20.5 - 51.1 %) 27.2 Monocytes % (1.7 - 9.3 %) 8.3 Eosinophils % (0 - 5 %) 3.4 Basophils % (0.0 - 2.0 %) 1.1 Absolute Granulocytes (1.4 - 6.5 /CUMM) 4.6 Absolute Lymphocytes (1.2 - 3.4 /CUMM) 2.1 Absolute Monocytes (0.10 - 0.60 /CUMM) 0.6 Absolute Eosinophils (0.0 - 0.7 /CUMM) 0.3 Absolute Basophils (0.0 - 0.2 /CUMM) 0.1 Toxicology Urine Opiates Screen (>2000 NG/ML) > 4000.00 H Methadone Screen (>300 NG/ML) 73 Barbiturate Screen (>200 NG/ML) < 60 Ur Phencyclidine Scrn (>25 NG/ML) < 6.00 Amphetamines Screen (>1000 NG/ML) 486 U Benzodiazepines Scrn (>200 NG/ML) < 85 Urine Cocaine Screen (>300 NG/ML) < 50 Urine Cannabis Screen (>50 NG/ML) < 5.00 05/20 05/20 0306 0105 Blood Gas pH (7.35 - 7.45 PH) 7.30 *L pCO2 (35 - 45 TORR) 57 H pO2 (80 - 100 TORR) 64 L HCO3 (21 - 28 MEQ/L) 27 ABG O2 Sat (Measured) (>96.0 %) 91.0 L P-50 (Temp Corrected) Y Carboxyhemoglobin (1.5 - 5.0 %) 0.2 L O2 Concentration % RA Temperature (97.0 - 100.0 FARH) 97.6 Miscellaneous Phlebotomy Draw Site RIGHT RADIAL Urines Urinalysis LIGHT H Urine Color (YEL,AMB,STR) YEL Urine Clarity (CLEAR) CLEAR Urine pH (5.0 - 8.0) 6.0 Ur Specific [place] (1.001 - 1.035) 1.025 Urine Protein (NEG,<30 MG/DL) 100 H Urine Ketones (NEG) NEG Urine Nitrite (NEG) NEG Urine Bilirubin (NEG) NEG Urine Urobilinogen (0.1 - 1.0 EU/dl) 0.2 Ur Leukocyte Esterase (NEG) NEG Ur Microscopic SEDIMENT EXAMINED Urine RBC (0 - 5 /HPF) 1-3 Urine Bacteria (NEG/NONE) RARE H Urine Mucus (FEW,NONE) FEW Urine Hemoglobin (NEG) NEG Urine Glucose (N MG/DL) NEG 05/20 05/20 0052 0052 Chemistry Sodium (137 - 145 mmol/L) 138 Potassium (3.5 - 5.1 mmol/L) 4.2 Chloride (98 - 107 mmol/L) 97 L Carbon Dioxide (22 - 30 mmol/L) 29 Anion Gap (5 - 16) 12 BUN (9 - 20 mg/dL) 28 H Creatinine (0.7 - 1.2 mg/dL) 2.0 H Estimated GFR (>60 ml/min) 33 L BUN/Creatinine Ratio (7 - 25 %) 14.0 Glucose (65 - 99 mg/dL) 145 H Calcium (8.4 - 10.2 mg/dL) 8.4 Magnesium (1.6 - 2.3 mg/dL) 2.1 Total Bilirubin (0.2 - 1.3 mg/dL) 0.4 AST (17 - 59 U/L) 18 ALT (21 - 72 U/L) 25 Alkaline Phosphatase (< 127 U/L) 138 H Troponin I (<0.11 ng/ml) < 0.01 < 0.01 Nca-U-Bqazdcctogs Pept (<125 pg/mL) 1640 H Total Protein (6.3 - 8.2 g/dL) 6.5 Albumin (3.5 - 5.0 g/dL) 3.7 Globulin (1.9 - 4.2 gm/dL) 2.8 Albumin/Globulin Ratio (1.1 - 2.2 %) 1.3 Hematology CBC w Diff NO MAN DIFF REQ WBC (4.8 - 10.8 /CUMM) 8.0 RBC (4.70 - 6.10 /CUMM) 4.32 L Hgb (14.0 - 18.0 G/DL) 12.5 L Hct (42 - 52 %) 37.2 L MCV (80.0 - 94.0 FL) 86.0 MCH (27.0 - 31.0 PG) 29.0 MCHC (33.0 - 37.0 G/DL) 33.7 RDW (11.5 - 14.5 %) 14.6 H Plt Count (130 - 400 /CUMM) 190 MPV (7.4 - 10.4 FL) 9.5 Gran % (42.2 - 75.2 %) 60.9 Lymphocytes % (20.5 - 51.1 %) 27.4 Monocytes % (1.7 - 9.3 %) 7.9 Eosinophils % (0 - 5 %) 2.9 Basophils % (0.0 - 2.0 %) 0.9 Absolute Granulocytes (1.4 - 6.5 /CUMM) 4.9 Absolute Lymphocytes (1.2 - 3.4 /CUMM) 2.2 Absolute Monocytes (0.10 - 0.60 /CUMM) 0.6 Absolute Eosinophils (0.0 - 0.7 /CUMM) 0.2 Absolute Basophils (0.0 - 0.2 /CUMM) 0.1 Assessment/Plan Assessment/Plan Imp: 1. Prostate ca being managed by observation 2. Incomplete bladder emptying due to hypotonic bladder Plan: 1. When acute diureses complete would remove san 2. Check pvr by bladder scan q shift after san removal and str cath is more than 400 cc. Would tolerate an elevated pvr up to 400 cc in his case due to his hypotonic bladder Consult Acknowledgment - Thank you for your consult request.
--- NOTE | 2018-05-21 07:07 | PN- Housestaff ---
Ozzy Hendrickson 05/21/18 0706: Subjective Follow-up For: Acute on Chronic right sided CHF Acute hypercapnic respiratory failure Chronic Urinary Retention Tele-Events Since Last Visit: Atrial fibrillation, 74 Subjective: Patient seen and examined at bedside this morning. Patient claims to have some constipation and feels after breakfast. Nurse to give patient suppository. Otherwise patient denies any hematuria, pain on urination. Patient denies any chest pain, palpitations, shortness of breath this morning. Patient claims his lower extremity edema is improving. Patient seen and followed by Dr. Pacheco of urology and Dr. Riggs cardiology. Will keep patient on IV Lasix for 1 more day and Mcleod catheter. Review of Systems Constitutional: Denies: see HPI. Objective Last 24 Hrs of Vital Signs/I&O Vital Signs Date Time Temp Pulse Resp B/P B/P Pulse O2 O2 Flow FiO2 Mean Ox Delivery Rate 05/21 0142 71 93 05/20 2325 82 92 05/20 2227 97.4 73 14 144/86 93 05/20 2136 Room Air Room Air 05/20 2053 104 122/76 05/20 2053 104 122/76 05/20 2034 104 122/76 05/20 1615 97.5 85 15 138/86 92 05/20 1557 Room Air 05/20 1527 97.4 89 18 155/84 95 05/20 0846 94 Room Air Room Air 05/20 0833 81 129/71 05/20 0833 81 129/71 05/20 0832 97.5 81 20 129/71 94 Room Air Room Air Intake & Output 05/21 0800 05/21 0000 05/20 1600 Intake Total 50 1418 1100 Output Total 1000 1050 Balance 50 418 50 Intake, IV 14 Intake, Oral 50 1404 1100 Output, Urine 1000 1050 Patient 309 lb 309 lb Weight Weight Bed scale Measurement Method Physical Exam General Appearance: Alert, Oriented X3, Cooperative, No Acute Distress Skin: significant lower extremity swelling, erythema, skin changes HEENT: Atraumatic, PERRLA, EOMI, Mucous Membr. moist/pink Cardiovascular: Regular Rate, Normal S1, Normal S2 Lungs: ronchi at lower lung bases Abdomen: Normal Bowel Sounds, Soft, No Tenderness Neurological: Normal Speech, Strength at 5/5 X4 Ext, Normal Tone, Sensation Intact, Reflexes 2+ Extremities: +2 edema in bilateral lower extremities, erythema, no wheeping drainage Vascular: Normal Pulses, Pulses Symmetrical Current Medications: Current Medications Sig/Donny Start time Last Medication Dose Route Stop Time Status Admin Acetaminophen 1,000 MG Q6P PRN 05/20 0400 AC IV Apixaban 5 MG BID 05/20 09 AC 05/20 PO 2052 Atenolol 50 MG BID 05/20 09 AC 05/20 PO 2052 Atorvastatin Calcium 40 MG DAILY 05/20 09 AC 05/20 PO 832 Bupropion HCl 300 MG QAM 05/20 09 AC 05/20 PO 914 Duloxetine HCl 60 MG DAILY 05/20 09 AC 05/20 PO 08 Furosemide 0 .STK-MED ONE 05/20 0741 DC IV Furosemide 40 MG 7:30 AM, & 4:30 PM 05/20 0730 AC 05/20 IV 1612 Insulin Aspart 0 TIDAC 05/20 1200 AC 05/20 SC 1240 Morphine Sulfate 15 MG .STK-MED ONE 05/20 2313 DC PO 05/20 2314 Morphine Sulfate 15 MG Q12H 05/20 1630 AC 05/21 PO 0551 Morphine Sulfate 15 MG BID 05/20 09 AC 05/20 PO 2051 Multivitamins 1 TAB DAILY 05/20 09 AC 05/20 Therapeutic PO 08 Pregabalin 0 .STK-MED ONE 05/20 1415 DC PO Pregabalin 200 MG TID 05/20 900 AC 05/20 PO 2051 Pregabalin 0 .STK-MED ONE 05/20 0807 DC PO Tamsulosin HCl 0.4 MG BID 05/20 09 AC 05/20 PO 2052 Last 24 Hrs of Lab/Charles Results Last 24 Hrs of Labs/Mics: Laboratory Tests 05/21/18 0632: Sodium Pending, Potassium Pending, Chloride Pending, Carbon Dioxide Pending, Anion Gap Pending, BUN Pending, Creatinine Pending, BUN/Creatinine Ratio Pending , CBC w Diff Pending, WBC Pending, RBC Pending, Hgb Pending, Hct Pending, MCV Pending, MCH Pending, MCHC Pending, RDW Pending, Plt Count Pending, MPV Pending 05/20/18 1630: Urine Opiates Screen > 4000.00 H, Methadone Screen 73, Barbiturate Screen < 60, Ur Phencyclidine Scrn < 6.00, Amphetamines Screen 486, U Benzodiazepines Scrn < 85, Urine Cocaine Screen < 50, Urine Cannabis Screen < 5.00 Assessment/Plan Assessment: 67M PMH atrial fibrillation s/p cardioversion, T2DM, CKD stage IIIB, CVA, BPH with urinary retention s/p TURP, prostate cancer, ROB on CPAP, depression, chronic lower back pain s/p vetebral fusion surgery presenting with several days of progressive lower extremity edema, difficulty urinating, and daytime sleepiness. ABG done in ER shows 7.30 with pCO2 64, placed on BiPAP, with improvement in mental status. Patient has no respiratory complaints at this time, is awake and alert. He does report lower back pain that is chronic and relieved with Morphine IR 15mg, which he was just given in ER. 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 Legs are 2+ bilaterally. Troponin is negative and chest x-ray negative for any acute cardiac pulmonology pathology, but stable prominent cardiac silhouette. Patient on room air saturating well at 93%. ECHO pending. Problem list: 1. Acute on Chronic right sided CHF 2. Acute hypercapnic respiratory failure-off BiPAP 3. Chronic Urinary Retention Acute on chronic right-sided heart failure * Cardiology on board (Dr. Riggs) * Pulmonology consulted. Patient follows up with Dr. Parikh for the past 5 years. * Follow-up on echocardiogram * Continue patient on IV Lasix 40 mg BID * Monitor ins and outs; daily weights * Continue to monitor on telemetry given past history of atrial fibrillation on Eliquis * Continue atenolol 50 mg twice daily Acute hypercapnic respiratory failure Patient presents to the ED with abnormal ABG 7.30 with pCO2 64, placed on BiPAP, with improvement in mental status. Patient stopped using his CPAP in November. * Pulmonology consulted follow up with recommendations * Follow-up on echocardiogram * Advised patient to use CPAP continuously * Patient has chronic lower extremity edema leading to right heart failure secondary to noncompliance with CPAP Chronic urinary retention Patient has a past medical history of prostate cancer diagnosed in January 2018 status post TURP 2. Patient is on Flomax and follows up with the urologist at [facility]. * Dr. Pacheco of urology consulted: recommends removing mcleod when acute diuresis complete * check PVR by bladder scan q shift after mcleod removal and straigth cath is more than 400 cc. Would tolerate an elevated PVR up to 400 cc in his case due to hypotonic bladder. * Patient on IV Lasix 40 mg * Continue Flomax * Monitor BUN/creatinine; conitnuing to improve since admission (1.6 from 2.0) Chronic Back Pain Patient history with multiple back surgeries in the past with chronic back pain. * Morphine ms Contin 15mg Q12 PO * MSIR 15mg BID * Lyrica 200mg TID PO * Ofirmev Q6 PRN IV CODE STATUS: Full code Diet: Regular diet DVT prophylaxis: Eliquis Problem List: 1. Chronic back pain 2. CHF (congestive heart failure) 3. Lower extremity edema 4. Acute on chronic kidney failure 5. Atrial fibrillation Pain Ratin Pain Location: Back Pain Goal: Pain 4 or less Pain Plan: as per pain pathway. 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 ABG done shows 7.30 with pCO2 64, placed on BiPAP, with improvement in mental status. acute hypercapneic resp failure in pt with morbid obesity and ROB not using his CPAP. Currently much more alert and oriented. resp failure resolved. pt using cpap at night now and was encouraged to be compliant . acute right side heart failure- on iv lasix 40 mg bid. will switch to po based on cardio recommendations. Acute metabolic encephalopathy secondary to above. resolved now . Urinary retention in pt with BPH and prostate cancer- now has mcleod cath. Urology ok to dc mcleod once pt off iv lasix and acute diuresis completed. Afib - on eliquis. rate controlled. CARLOS on CKD- better today at 1.6. from 2.0 at admission. Likely sec to urinary retention. dw/ pt the care plan. Echo pending. will f/u on that.
[2018-05-21 07:16] VITALS: BP 126/74
[2018-05-21 08:22] LABS: ABSOLUTE BASOPHIL COUNT 0 /CUMM (0.0-0.2); ABSOLUTE EOSINOPHIL COUNT 0.2 /CUMM (0.0-0.7); ABSOLUTE GRANULOCYTE CT 3.8 /CUMM (1.4-6.5); ABSOLUTE LYMPH COUNT 1.5 /CUMM (1.2-3.4); ABSOLUTE MONOCYTE COUNT 0.5 /CUMM (0.10-0.60); BASOPHIL % 0.7 % (0.0-2.0); EOSINOPHIL % 3.7 % (0-5); GRANULOCYTE % 62.3 % (42.2-75.2); HEMATOCRIT 36.5 % (42-52); MEAN CORPUSCULAR HGB 29.1 PG (27.0-31.0); MEAN CORPUSCULAR HGB CONC 33.6 G/DL (33.0-37.0); MEAN CORPUSCULAR VOLUME 86.4 FL (80.0-94.0); MEAN PLATELET VOLUME 9.8 FL (7.4-10.4); PLATELET COUNT 159 /CUMM (130-400); RBC DISTRIBUTION WIDTH 14.7 % (11.5-14.5); RED BLOOD CELL CT 4.22 /CUMM (4.70-6.10); WHITE BLOOD CELL COUNT 6.2 /CUMM (4.8-10.8)
--- NOTE | 2018-05-21 08:25 | Cons- Pulmonary ---
General Information and HPI Consulting Request Date of Consult: 05/21/18 Requested By: Dr. Chaves Reason for Consult: COPD, ROB Source of Information: patient, old records Exam Limitations: no limitations History of Present Illness: The patient is a 67 year old male with a PMH of the following: chronic obstructive lung disease insomnia pneumonia thyroid nodule electroencephalogram abnormal obesity solitary nodule of lung posterior rhinorrhea obstructive sleep apnea syndrome on ASV with noncompliance severe chronic back pain, on opiates The patient was admitted with increased lower extremity and somnolence. He has been non-compliant with his ASV. He has no mask isses which he feels is comfortable. He denies any increased shortness of breath, cough, sputum production, fever or chills. Allergies/Medications Allergies: Coded Allergies: venom-honey bee (bee venom (honey bee)) (Severe, ANAPHYLAXIS 12/08/17) ibuprofen (Intermediate, KIDNEYS 12/08/17) Home Med List: Amlodipine Besylate 10 MG TABLET 1 TAB PO DAILY HEART/BP (Reported) Apixaban (Eliquis) 5 MG TABLET 1 TAB PO BID BLOOD THINNER (Reported) Atenolol 50 MG TABLET 1 TAB PO BID HEART/BP (Reported) Atorvastatin Calcium (Lipitor) 40 MG TABLET 1 TAB PO DAILY CHOLESTEROL ( Reported) Bupropion HCl (Bupropion XL) 300 MG TAB.ER.24H 1 TAB PO QAM DEPRESSION/ANXIETY (Reported) Diltiazem HCl 30 MG TABLET 1 TAB PO BID HEART RATE (Reported) Duloxetine HCl (Cymbalta) 60 MG CAPSULE.DR 1 CAP PO DAILY Depression ( Reported) Furosemide (Lasix) 40 MG TABLET 1 TAB PO DAILY SWELLING (Reported) Glimepiride (Amaryl) 1 MG TABLET 1 TAB PO DAILY DM (Reported) Morphine Sulfate (Morphine Sulfate ER) 15 MG TABLET.ER 1 TAB PO BID PAIN ( Reported) Morphine Sulfate 15 MG TABLET 1 TAB PO BID PAIN (Reported) Multiple Vitamin (Multivitamins) 1 EACH TABLET 1 TAB PO DAILY SUPPLEMENT ( Reported) Pregabalin (Lyrica) 200 MG CAPSULE 1 CAP PO TID NEUROPATHY (Reported) Tamsulosin HCl 0.4 MG CAP.ER.24H 1 CAP PO BID (Reported) Current Medications: Current Medications Sig/Donny Start time Last Medication Dose Route Stop Time Status Admin Acetaminophen 1,000 MG Q6P PRN 05/20 0400 AC IV Apixaban 5 MG BID 05/20 09 AC 05/20 PO 2052 Atenolol 50 MG BID 05/20 09 AC 05/20 PO 2052 Atorvastatin Calcium 40 MG DAILY 05/20 09 AC 05/20 PO 832 Bupropion HCl 300 MG QAM 05/20 09 AC 05/20 PO 914 Duloxetine HCl 60 MG DAILY 05/20 09 AC 05/20 PO 832 Furosemide 40 MG 7:30 AM, & 4:30 PM 05/20 0730 AC 05/20 IV 1612 Insulin Aspart 0 TIDAC 05/20 1200 AC 05/20 SC 1240 Morphine Sulfate 15 MG .STK-MED ONE 05/20 2313 DC PO 05/20 231 Morphine Sulfate 15 MG Q12H 05/20 1630 AC 05/21 PO 0551 Morphine Sulfate 15 MG BID 05/20 09 AC 05/20 PO 2051 Multivitamins 1 TAB DAILY 05/20 09 AC 05/20 Therapeutic PO 832 Pregabalin 0 .STK-MED ONE 05/20 1415 DC PO Pregabalin 200 MG TID 05/20 900 AC 05/20 PO 2051 Tamsulosin HCl 0.4 MG BID 05/20 09 AC 05/20 PO 2052 Review of Systems Review of Systems All Other Systems: Reviewed and Negative Past History Travel History Traveled to [place] past 21 day No Medical History Blood Transfusion Hx: No Neurological: TIA X 2 EENT: hearing loss, rhinitis Cardiovascular: AFIB, hypertension, hyperlipidemia Respiratory: obstructive sleep apnea, pneumonia, USES CPAP Gastrointestinal: constipation, hiatal hernia Hepatic: NONE Renal: chronic kidney disease, "SHUT DOWN ONCE" PER DAUG HAS [facility] CAT[facility]TER Musculoskeletal: chronic back pain, disk herniation, gout, osteoarthritis Psychiatric: NONE Endocrine: diabetes, NIDDM Blood Disorders: NONE Cancer(s): melanoma, prostate cancer 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 Home Who Do You Live With? spouse Services at Home: None Smoking Status: Former Smoker Functional Ability ADLs Independent: dressing, eating, toileting, bathing. Ambulation: walker IADLs Independent: shopping, housework, finances, food prep, telephone, medication admin. Exam & Diagnostic Data Last 24 Hrs of Vital Signs/I&O Vital Signs Date Time Temp Pulse Resp B/P B/P Pulse O2 O2 Flow FiO2 Mean Ox Delivery Rate 05/21 0716 98.1 93 16 126/74 93 Room Air 05/21 0142 71 93 05/20 2325 82 92 05/20 2227 97.4 73 14 144/86 93 05/20 2136 Room Air Room Air 05/20 2053 104 122/76 05/20 205 104 122/76 05/20 2034 104 122/76 05/20 1615 97.5 85 15 138/86 92 05/20 1557 Room Air 05/20 1527 97.4 89 18 155/84 95 05/20 0846 94 Room Air Room Air 05/20 0833 81 129/71 05/20 0833 81 129/71 05/20 0832 97.5 81 20 129/71 94 Room Air Room Air Intake & Output 05/21 1600 05/21 0800 05/21 0000 Intake Total 50 1418 Output Total 1450 1000 Balance -1400 418 Intake, IV 14 Intake, Oral 50 1404 Output, Urine 1450 1000 Patient 309 lb Weight Physical Exam General Appearance: alert, awake, comfortable Head: atraumatic, normal appearance Eyes: Bilateral: PERRL, EOMI. Neck: supple Respiratory: lungs clear, decreased breath sounds Cardiovascular: regular rate/rhythm Gastrointestinal: normal bowel sounds, soft, non-tender Extremities: pedal edema Skin: intact, normal color, warm/dry Last 48 Hrs of Labs/Charles: Laboratory Tests 05/21/18 0632: Sodium Pending, Potassium Pending, Chloride Pending, Carbon Dioxide Pending, Anion Gap Pending, BUN Pending, Creatinine Pending, BUN/Creatinine Ratio Pending , CBC w Diff Pending, WBC Pending, RBC Pending, Hgb Pending, Hct Pending, MCV Pending, MCH Pending, MCHC Pending, RDW Pending, Plt Count Pending, MPV Pending 05/20/18 1630: Urine Opiates Screen > 4000.00 H, Methadone Screen 73, Barbiturate Screen < 60, Ur Phencyclidine Scrn < 6.00, Amphetamines Screen 486, U Benzodiazepines Scrn < 85, Urine Cocaine Screen < 50, Urine Cannabis Screen < 5.00 05/20/18 0536: Anion Gap 11, Estimated GFR 38 L, BUN/Creatinine Ratio 15.6, Magnesium 2.0, CBC w Diff NO MAN DIFF REQ, RBC 4.38 L, MCV 86.6, MCH 28.9, MCHC 33.3, RDW 14.4, MPV 9.3, Gran % 60.0, Lymphocytes % 27.2, Monocytes % 8.3, Eosinophils % 3.4, Basophils % 1.1, Absolute Granulocytes 4.6, Absolute Lymphocytes 2.1, Absolute Monocytes 0.6, Absolute Eosinophils 0.3, Absolute Basophils 0.1 05/20/18 0306: Urinalysis LIGHT H, Urine Color YEL, Urine Clarity CLEAR, Urine pH 6.0, Ur Specific [place] 1.025, Urine Protein 100 H, Urine Ketones NEG, Urine Nitrite NEG, Urine Bilirubin NEG, Urine Urobilinogen 0.2, Ur Leukocyte Esterase NEG, Ur Microscopic SEDIMENT EXAMINED, Urine RBC 1-3, Urine Bacteria RARE H, Urine Mucus FEW, Urine Hemoglobin NEG, Urine Glucose NEG 05/20/18 0105: pH 7.30 *L, pCO2 57 H, pO2 64 L, HCO3 27, ABG O2 Sat (Measured) 91.0 L, P-50 (Temp Corrected) Y, Carboxyhemoglobin 0.2 L, O2 Concentration % RA, Temperature 97.6, Phlebotomy Draw Site RIGHT RADIAL 05/20/18 005: Magnesium 2.1, Troponin I < 0.01 05/20/18 0052: Anion Gap 12, Estimated GFR 33 L, BUN/Creatinine Ratio 14.0, Glucose 145 H, Calcium 8.4, Total Bilirubin 0.4, AST 18, ALT 25, Alkaline Phosphatase 138 H, Troponin I < 0.01, [id number] Pept 1640 H, Total Protein 6.5, Albumin 3.7, Globulin 2.8, Albumin/Globulin Ratio 1.3, CBC w Diff NO MAN DIFF REQ, RBC 4.32 L, MCV 86.0, MCH 29.0, MCHC 33.7, RDW 14.6 H, MPV 9.5, Gran % 60.9, Lymphocytes % 27.4, Monocytes % 7.9, Eosinophils % 2.9, Basophils % 0.9, Absolute Granulocytes 4.9, Absolute Lymphocytes 2.2, Absolute Monocytes 0.6, Absolute Eosinophils 0.2, Absolute Basophils 0.1 Assessment/Plan Impression/Plan: 1. Severe ROB with ASV non-compliance. 2. COPD. 3. Volume overload. Recommendations: * Nocturnal APAP. * Discussed home regimen with patient and his - he has no issues with his mask or equipment. He has just felt like not putting it on. I explained to him that this is very dangerous and could impact his morbidity and mortality. * He acknowledges the importance of wearing the mask and will try to do so every night. * Continue with pain managent but avoid oversedation. * Diuresis/management of comorbidities as per primary team. Consult Acknowledgment - Thank you for your consult request.
--- NOTE | 2018-05-21 10:21 | Discharge Summary ---
Visit Information Visit Dates Admission Date: 05/20/18 Discharge Date: 05/23/18 Hospital Course Course Attending Physician: Anide MEDINA,Alisha Howe Primary Care Physician: Tramaine Rees MD Hospital Course: Mr. Fontanez is a 67 year old male with past medical history significant for HTN (diagnosed when at 16), Atrial fibrillation s/p cardioversion 5 years ago, NIDDM , CKD, ROB, Melanoma, Prosatate cancer s/p TURP, briought in to the ED by his because she feels he has been more lethargic than usual for the past few days. The patient endorses the same and feels that his symptoms started a week ago when he developed urine retention which has been constantly worsening. Notably, the patient was taught to self cathetarise himself but he never felt the need to given that he could satisfactorilly urinate without problems until a week and a half prior to admission. Patient complained of hesitancy , poor stream, straining and urgency, each progressively gettng worse by the day. In addition complained of pedal edema for the for past 2 days prior to admission. Deniedchest pain, SOB, palpiatations or acute decrease in exercise tolerance. He does not report orthopnea and sleeps with the same number of pillows that he used to. Patient complained about not getting enough sleep with multiple awakenings and not feeling refreshed when he gets up. This patient has a history of several prostate surgeries in the past. Approximately 10 years ago he underwent a TURP [facility] by Dr Arias. In 01/2017 he underwent TURP by Dr Jacobo at [facility]. This revealed [place] 6 carcinoma in the pathology specimen. His PSA was less than 1. He was initially referred for radiation therapy but then it was decided that he be treated by observation. Even after his prostate surgeries he continues to have difficulty voiding and has not emptied his bladder well. He underwent w/u at [facility] by Dr Shaw. He underwent urodynamics and was found to have a hypotonic bladder as the cause of his incomplete bladder emptying. Self intermittent catheterization on a prn basis was recommended. EMERGENCY DEPARTMENT: Vitals: 97.2, 82, 17, 140/79, 95% RA EKG: AFIB, nonspecific ST T wave chg Troponin: Negative X 3 Blood Gas: 7.30, 57 CO2, 54 PO2, 27 HCO3 Pro BNP: 1640 Labs:WBC: 8.0, Hgb: 12.5, Hct: 37.2, Plt: 190 Na: 138, K+: 4.2, Cl: 97, CO2: 97, BUN: 28, Cr: 2.0 CXR: No evidence for acute disease. Stable prominent cardiac silhouette. ECHO 05/21/18: Normal size left ventricle. Left ventricular wall thickness increased. Normal left ventricular ejection fraction estimated at 55-60% Problem list: 1. Acute on Chronic right sided CHF 2. Acute hypercapnic respiratory failure-off BiPAP 3. Chronic Urinary Retention Acute on chronic right-sided heart failure Patient was admitted to the telemetry and cardiology consulted. Continued patient on IV lasix 40mg prior to transition to oral prior to discharge. Daily ins and outs were monitored and daily wights. Patient continued on atenolol 50mg BID. Repeat echochardiogram showed an EF of 55-60%. Patient discharged on 60mg PO lasix. Advised to follow up outpatient with cardiology and pcp accordingly. Acute hypercapnic respiratory failure Patient presents to the ED with abnormal ABG 7.30 with pCO2 64, placed on BiPAP, with improvement in mental status. Patient stopped using his CPAP in November. Pulmonology was consulted and repeat echo showed an EF of 55-60%. Educated and advised to use CPAP continuously given contribution to right heart diastolic failure and chronic lower extremity edema. Chronic urinary retention Patient has a past medical history of prostate cancer diagnosed in January 2018 status post TURP 2. Patient is on Flomax and follows up with urologist at [facility]. Dr. Pacheco of urology consulted at [facility]. Continued Mcleod catheter and monitored urine output while patient on IV lasix. Continued Flomax. Monitored BUN/Creatinine with patients baseline around 1.5 creatinine. Patient advised to follow up with urologist upon discharge. Dr. Pacheco of urology consulted recommended removing mcleod when acute diuresis complete. Mcleod removed prior to discharge. Chronic Back Pain Patient history with multiple back surgeries in the past with chronic back pain. Morphine ms Contin 15mg Q12 PO. MSIR 15mg BID. Lyrica 200mg TID PO. Ofirmev Q6 PRN IV CODE STATUS: Full code Diet: Regular diet DVT prophylaxis: Eliquis Allergies: Coded Allergies: venom-honey bee (bee venom (honey bee)) (Severe, ANAPHYLAXIS 12/08/17) ibuprofen (Intermediate, KIDNEYS 12/08/17) Disposition Summary Disposition Principal Diagnosis: Acute on chronic right sided heart failure Additional Diagnosis: Acute hypercapneic respiratory failure Discharge Disposition: home or self care Discharge Instructions General Discharge Information Code Status: Full Code Patient's Diet: Heart Healthy Patient's Activity: as tolerated Follow-Up Instructions/Appts: Follow up with PCP 1 week upon dicharge. Follow up with Shuttle Threader within 1 week of discharge. Follow up with Dry End Operator within 1 week of discharge. Continue to use CPAP every night. Medications at Discharge Discharge Medications: Continue taking these medications: Diltiazem HCl (Diltiazem HCl) 30 MG TABLET 1 Tablet ORAL TWICE DAILY Comments: NOT GIVEN THIS ADMISSION Atorvastatin Calcium (Lipitor) 40 MG TABLET 1 Tablet ORAL DAILY Comments: Last Taken: 05/23/18 Time: 9:00 AM Amlodipine Besylate (Amlodipine Besylate) 10 MG TABLET 1 Tablet ORAL DAILY Comments: NOT GIVEN THIS ADMISSION Atenolol (Atenolol) 50 MG TABLET 1 Tablet ORAL TWICE DAILY Qty = 180 Comments: Last Taken: 05/23/18 Time: 9:00 AM Apixaban (Eliquis) 5 MG TABLET 1 Tablet ORAL TWICE DAILY Qty = 180 Comments: Last Taken: 05/23/18 Time: 9:00 AM Glimepiride (Amaryl) 1 MG TABLET 1 Tablet ORAL DAILY Comments: NOT GIVEN THIS ADMISSION Tamsulosin HCl (Tamsulosin HCl) 0.4 MG CAP.ER.24H 1 Capsule ORAL TWICE DAILY Qty = 60 Comments: Last Taken: 05/23/18 Time: 9:00 AM Furosemide (Lasix) 40 MG TABLET 1.5 Tablet ORAL DAILY Comments: Last Taken: 05/23/18 Time: 9:00 AM IV GIVEN TODAY Morphine Sulfate (Morphine Sulfate ER) 15 MG TABLET.ER 1 Tablet ORAL TWICE DAILY Comments: Last Taken: 05/23/18 Time: 5:30 AM Morphine Sulfate (Morphine Sulfate) 15 MG TABLET 1 Tablet ORAL TWICE DAILY Comments: Last Taken: 05/23/18 Time: 9:00 AM Multiple Vitamin (Multivitamins) 1 EACH TABLET 1 Tablet ORAL DAILY Comments: Last Taken: 05/23/18 Time: 9:00 AM Pregabalin (Lyrica) 200 MG CAPSULE 1 Capsule ORAL THREE TIMES DAILY Comments: Last Taken: 05/23/18 Time: 9:00 AM Duloxetine HCl (Cymbalta) 60 MG CAPSULE.DR 1 Capsule ORAL DAILY Comments: Last Taken: 05/23/18 Time: 9:00 AM Bupropion HCl (Bupropion XL) 300 MG TAB.ER.24H 1 Tablet ORAL Every Morning Qty = 90 Comments: Last Taken: 05/23/18 Time: 9:00 AM Copies To: Negrita MEDINA,Tramaine Nash
[2018-05-21 14:39] VITALS: BP 128/74
--- NOTE | 2018-05-21 15:06 | PN- Cardiology ---
Subjective Subjective: No shortness of breath. No chest pain. No palpitations. No diaphoresis. Lower extremity edema is improving. No palpitations Objective Vital Signs and I&Os Vital Signs Date Time Temp Pulse Resp B/P B/P Pulse O2 O2 Flow FiO2 Mean Ox Delivery Rate 05/21 1439 98.2 85 20 128/74 96 Room Air 05/21 0851 93 126/74 05/21 0851 93 126/74 05/21 0716 98.1 93 16 126/74 93 Room Air 05/21 0142 71 93 05/20 2325 82 92 05/20 2227 97.4 73 14 144/86 93 05/20 2136 Room Air Room Air 05/20 2053 104 122/76 05/20 2053 104 122/76 05/20 2034 104 122 Intake & Output 05/21 1600 05/21 0800 05/21 0000 05/20 1600 05/20 0805/20 0000 Intake Total 280 59 6617 1100 Output Total 1400 1450 1000 1050 Balance -440 -1400 418 50 Intake, IV 14 Intake, Oral 624 36 7343 1100 Number 1 Bowel Movements Output, Urine 1400 1450 1000 1050 Patient 309 lb 309 lb 278 lb 278 lb Weight Weight Bed scale Reported by Patient Measurement Method Physical Exam: Gen: The patient is in no acute distress HEENT: Normal nose, ears, and oropharynx. Pupils equal bilaterally. Conjunctiva normal. Neck: Supple with no JVD, no masses, and no thyromegaly Lungs: Decreased breath sound with normal respiratory effort Heart: RRR, S1, S2, 1/6 systolic murmur. 3+ peripheral edema, 2+ pulses in the lower extremities bilaterally Abdomen: Soft, nontender, no masses. No hepatomegaly. No splenomegaly Extremities: No clubbing or cyanosis. Normal muscle strength in the upper and lower extremities Skin: Normal skin turgor with no skin ulcers or lesions noted. Neuro: Cranial nerves intact. Sensation intact Current Medications: Current Medications Sig/Donny Start time Last Medication Dose Route Stop Time Status Admin Acetaminophen 1,000 MG Q6P PRN 05/20 0400 AC IV Apixaban 5 MG BID 05/20 09 AC 05/21 PO 0851 Atenolol 50 MG BID 05/20 09 AC 05/21 PO 0851 Atorvastatin Calcium 40 MG DAILY 05/20 900 AC 05/21 PO 0851 Bisacodyl 10 MG ONCE ONE 05/21 1115 DC 05/21 [place] 05/21 1116 1000 Bupropion HCl 300 MG QAM 05/20 09 AC 05/21 PO 0851 Duloxetine HCl 60 MG DAILY 05/20 09 AC 05/21 PO 0851 Furosemide 40 MG 7:30 AM, & 4:30 PM 05/20 0730 AC 05/21 IV 1631 Insulin Aspart 0 TIDAC 05/20 1200 AC 05/20 SC 1240 Morphine Sulfate 15 MG 0600,1800 05/21 1800 AC PO Morphine Sulfate 15 MG .STK-MED ONE 05/20 2313 DC PO 05/20 2314 Morphine Sulfate 15 MG Q12H 05/20 1630 AC 05/21 PO 1631 Morphine Sulfate 15 MG BID 05/20 09 DC 05/21 PO 1045 Multivitamins 1 TAB DAILY 05/20 09 AC 05/21 Therapeutic PO 0851 Patient Medication 1 ED ONE ONE 05/21 1430 DC Teaching ED 05/21 1431 Pregabalin 200 MG TID 05/20 900 AC 05/21 PO 1515 Tamsulosin HCl 0.4 MG BID 05/20 09 AC 05/21 PO 0851 Results Last 48 Hrs of Labs/Mics: Laboratory Tests 05/21/18 0632: Anion Gap 12, Estimated GFR 43 L, BUN/Creatinine Ratio 16.9, CBC w Diff NO MAN DIFF REQ, RBC 4.22 L, MCV 86.4, MCH 29.1, MCHC 33.6, RDW 14.7 H, MPV 9.8, Gran % 62.3, Lymphocytes % 25.0, Monocytes % 8.3, Eosinophils % 3.7, Basophils % 0.7, Absolute Granulocytes 3.8, Absolute Lymphocytes 1.5, Absolute Monocytes 0.5, Absolute Eosinophils 0.2, Absolute Basophils 0 05/20/18 1630: Urine Opiates Screen > 4000.00 H, Methadone Screen 73, Barbiturate Screen < 60, Ur Phencyclidine Scrn < 6.00, Amphetamines Screen 486, U Benzodiazepines Scrn < 85, Urine Cocaine Screen < 50, Urine Cannabis Screen < 5.00 05/20/18 0536: Anion Gap 11, Estimated GFR 38 L, BUN/Creatinine Ratio 15.6, Magnesium 2.0, CBC w Diff NO MAN DIFF REQ, RBC 4.38 L, MCV 86.6, MCH 28.9, MCHC 33.3, RDW 14.4, MPV 9.3, Gran % 60.0, Lymphocytes % 27.2, Monocytes % 8.3, Eosinophils % 3.4, Basophils % 1.1, Absolute Granulocytes 4.6, Absolute Lymphocytes 2.1, Absolute Monocytes 0.6, Absolute Eosinophils 0.3, Absolute Basophils 0.1 05/20/18 0306: Urinalysis LIGHT H, Urine Color YEL, Urine Clarity CLEAR, Urine pH 6.0, Ur Specific [place] 1.025, Urine Protein 100 H, Urine Ketones NEG, Urine Nitrite NEG, Urine Bilirubin NEG, Urine Urobilinogen 0.2, Ur Leukocyte Esterase NEG, Ur Microscopic SEDIMENT EXAMINED, Urine RBC 1-3, Urine Bacteria RARE H, Urine Mucus FEW, Urine Hemoglobin NEG, Urine Glucose NEG 05/20/18 0105: pH 7.30 *L, pCO2 57 H, pO2 64 L, HCO3 27, ABG O2 Sat (Measured) 91.0 L, P-50 (Temp Corrected) Y, Carboxyhemoglobin 0.2 L, O2 Concentration % RA, Temperature 97.6, Phlebotomy Draw Site RIGHT RADIAL 05/20/18 005: Magnesium 2.1, Troponin I < 0.01 05/20/18 005: Anion Gap 12, Estimated GFR 33 L, BUN/Creatinine Ratio 14.0, Glucose 145 H, Calcium 8.4, Total Bilirubin 0.4, AST 18, ALT 25, Alkaline Phosphatase 138 H, Troponin I < 0.01, Yuo-H-Cjtfrkvkwpg Pept 1640 H, Total Protein 6.5, Albumin 3.7, Globulin 2.8, Albumin/Globulin Ratio 1.3, CBC w Diff NO MAN DIFF REQ, RBC 4.32 L, MCV 86.0, MCH 29.0, MCHC 33.7, RDW 14.6 H, MPV 9.5, Gran % 60.9, Lymphocytes % 27.4, Monocytes % 7.9, Eosinophils % 2.9, Basophils % 0.9, Absolute Granulocytes 4.9, Absolute Lymphocytes 2.2, Absolute Monocytes 0.6, Absolute Eosinophils 0.2, Absolute Basophils 0.1 Assessment/Plan Assessment/Plan Assessment: 1. Paroxysmal atrial fibrillation 2. Diabetes mellitus 3. Chronic kidney disease 4. Acute on chronic heart failure, likely right-sided 5. Obstructive sleep apnea Plan: * Continue IV * Monitor input and output with daily weight * Check basic metabolic profile daily * Echocardiogram pending * Treatment of obstructive sleep apnea Continue telemetry? Yes
[2018-05-21 22:03] VITALS: BP 150/94
[2018-05-22 06:38] VITALS: BP 118/62
[2018-05-22 08:15] LABS: ABSOLUTE BASOPHIL COUNT 0.1 /CUMM (0.0-0.2); ABSOLUTE EOSINOPHIL COUNT 0.2 /CUMM (0.0-0.7); ABSOLUTE GRANULOCYTE CT 4.3 /CUMM (1.4-6.5); ABSOLUTE LYMPH COUNT 1.3 /CUMM (1.2-3.4); ABSOLUTE MONOCYTE COUNT 0.5 /CUMM (0.10-0.60); EOSINOPHIL % 3.6 % (0-5); GRANULOCYTE % 66.6 % (42.2-75.2); HEMATOCRIT 37.5 % (42-52); MEAN CORPUSCULAR HGB 28.9 PG (27.0-31.0); MEAN CORPUSCULAR HGB CONC 33.4 G/DL (33.0-37.0); MEAN CORPUSCULAR VOLUME 86.6 FL (80.0-94.0); MEAN PLATELET VOLUME 9.9 FL (7.4-10.4); PLATELET COUNT 159 /CUMM (130-400); RBC DISTRIBUTION WIDTH 14.6 % (11.5-14.5); RED BLOOD CELL CT 4.33 /CUMM (4.70-6.10); WHITE BLOOD CELL COUNT 6.4 /CUMM (4.8-10.8)
--- NOTE | 2018-05-22 08:36 | PN- Pulmonary ---
Subjective HPI/Critical Care Issues: The patient is awake and alert. He tolerated APAP overnight without any issue. He reports feeling improved overall. He continues to have mild lower extremity swelling. There were no overnight events reported. Objective Current Medications: Current Medications Sig/Donny Start time Last Medication Dose Route Stop Time Status Admin Acetaminophen 1,000 MG Q6P PRN 05/20 0400 AC IV Apixaban 5 MG BID 05/20 0900 AC 05/21 PO 2154 Atenolol 50 MG BID 05/20 09 AC 05/21 PO 2154 Atorvastatin Calcium 40 MG DAILY 05/20 0900 AC 05/21 PO 0851 Bisacodyl 10 MG ONCE ONE 05/21 1115 DC 05/21 [place] 05/21 1116 1000 Bupropion HCl 300 MG QAM 05/20 09 AC 05/21 PO 0851 Duloxetine HCl 60 MG DAILY 05/20 09 AC 05/21 PO 0851 Furosemide 40 MG 7:30 AM, & 4:30 PM 05/20 0730 AC 05/21 IV 1631 Insulin Aspart 0 TIDAC 05/20 1200 AC 05/20 SC 1240 Morphine Sulfate 15 MG 0600,1800 05/21 1800 AC 05/22 PO 0552 Morphine Sulfate 15 MG Q12H 05/20 1630 AC 05/22 PO 0530 Morphine Sulfate 15 MG BID 05/20 0900 DC 05/21 PO 1045 Multivitamins 1 TAB DAILY 05/20 09 AC 05/21 Therapeutic PO 0851 Patient Medication 1 ED ONE ONE 05/21 1430 DC Teaching ED 05/21 1431 Pregabalin 200 MG TID 05/20 09 AC 05/21 PO 2151 Tamsulosin HCl 0.4 MG BID 05/20 0900 AC 05/21 PO 2154 Vital Signs & I&O Last 24 Hrs of Vitals and I&O: Vital Signs Date Time Temp Pulse Resp B/P B/P Pulse O2 O2 Flow FiO2 Mean Ox Delivery Rate 05/22 0638 97.8 81 18 118/62 94 CPAP 05/21 2319 72 93 05/21 2203 97.7 82 15 150/94 94 05/21 2154 104 142/78 05/21 2154 104 142/78 05/21 1439 98.2 85 20 128/74 96 Room Air 05/21 0851 93 126/74 05/21 0851 93 126/74 Intake & Output 05/22 1600 05/22 0800 05/22 0000 Intake Total 100 340 Output Total 100 1800 Balance 0 -1460 Intake, Oral 100 340 Output, Urine 100 1800 Patient 296 lb Weight Physical Exam General Appearance: alert, awake, comfortable Head: atraumatic, normal appearance Neck: supple Respiratory: lungs clear, decreased breath sounds Cardiovascular: regular rate/rhythm Gastrointestinal: normal bowel sounds, soft, non-tender Extremities: pedal edema Skin: intact, normal color, warm/dry Results Last 24 Hrs of Lab Results: Laboratory Tests 05/22/18 0700: Sodium Pending, Potassium Pending, Chloride Pending, Carbon Dioxide Pending, Anion Gap Pending, BUN Pending, Creatinine Pending, BUN/Creatinine Ratio Pending , CBC w Diff Pending, WBC Pending, RBC Pending, Hgb Pending, Hct Pending, MCV Pending, MCH Pending, MCHC Pending, RDW Pending, Plt Count Pending, MPV Pending Impression/Plan Impression/Plan Impression/Plan: 1. Severe ROB with ASV non-compliance. 2. COPD. 3. Acute on chronic heart failure, likely right-sided. 4. Paroxysmal atrial fibrillation, on Eliquis and Tenormin. 5. History of diabetes mellitus. 6. Chronic kidney disease. 7. Morbid obesity. 8. Chronic pain, opiate dependent. Recommendations: * Nocturnal APAP to continue. The patient is doing better with therapy. * Discontinue mcleod? Voiding trials? * He acknowledges the importance of wearing the mask and will try to do so every night. * Continue with pain managent but avoid oversedation. * Management of comorbidities as per primary team. * DVT prophylaxis at all times -patient is on Eliquis.
--- NOTE | 2018-05-22 11:28 | PN- Housestaff ---
Kahlil Jaimes 05/22/18 1125: Subjective Follow-up For: Acute on Chronic right sided CHF Acute hypercapnic respiratory failure Chronic Urinary Retention Complaints: no complaints Tele-Events Since Last Visit: Atrial fibrillation, 74 Subjective: He was seen and examined this morning. He is alert awake and oriented to time place and person. Offers no complaints this morning. Overnight he was on CPAP machine. He is able to tolerate Cpap without any complaints. He reports that his lower extremity edema is much improving with IV Lasix. Denies any urinary retention. Review of Systems Constitutional: Reports: see HPI. Objective Last 24 Hrs of Vital Signs/I&O Vital Signs Date Time Temp Pulse Resp B/P B/P Pulse O2 O2 Flow FiO2 Mean Ox Delivery Rate 05/22 0921 81 118/62 05/22 0921 81 118/62 05/22 0638 97.8 81 18 118/62 94 CPAP 05/21 2319 72 93 05/21 2203 97.7 82 15 150/94 94 05/21 2154 104 142/78 05/21 2154 104 142/78 05/21 1439 98.2 85 20 128/74 96 Room Air Intake & Output 05/22 1600 05/22 0800 05/22 0000 Intake Total 100 340 Output Total 100 1800 Balance 0 -1460 Intake, Oral 100 340 Output, Urine 100 1800 Patient 134.377 kg Weight Physical Exam General Appearance: Alert, Oriented X3, Cooperative, No Acute Distress Other Physical Findings: HEENT: Atraumatic, PERRLA, EOMI, Mucous Membr. moist/pink Cardiovascular: Regular Rate, Normal S1, Normal S2 Lungs: ronchi at lower lung bases Abdomen: Normal Bowel Sounds, Soft, No Tenderness Neurological: Normal Speech, Strength at 5/5 X4 Ext, Normal Tone, Sensation Intact, Reflexes 2+ Extremities: +2 edema in bilateral lower extremities, erythema, no wheeping drainage Vascular: Normal Pulses, Pulses Symmetrical Current Medications: Current Medications Sig/Donny Start time Last Medication Dose Route Stop Time Status Admin Acetaminophen 1,000 MG Q6P PRN 05/20 0400 AC IV Apixaban 5 MG BID 05/20 900 AC 05/22 PO 09 Atenolol 50 MG BID 05/20 900 AC 05/22 PO 09 Atorvastatin Calcium 40 MG DAILY 05/20 900 AC 05/22 PO 09 Bupropion HCl 300 MG QAM 05/20 900 AC 05/22 PO 0921 Duloxetine HCl 60 MG DAILY 05/20 0900 AC 05/22 PO 0920 Furosemide 40 MG 7:30 AM, & 4:30 PM 05/20 0730 AC 05/22 IV 1010 Insulin Aspart 0 TIDAC 05/20 1200 AC 05/20 SC 1240 Morphine Sulfate 15 MG 0600,1800 05/21 1800 AC 05/22 PO 0552 Morphine Sulfate 15 MG Q12H 05/20 1630 AC 05/22 PO 0530 Morphine Sulfate 15 MG BID 05/20 0900 DC 05/21 PO 1045 Multivitamins 1 TAB DAILY 05/20 09 AC 05/22 Therapeutic PO 0920 Patient Medication 1 ED ONE ONE 05/21 1430 DC Teaching ED 05/21 1431 Pregabalin 200 MG TID 05/20 900 05/22 PO 0920 Tamsulosin HCl 0.4 MG BID 05/20 09 AC 05/22 PO 0921 Last 24 Hrs of Lab/Charles Results Last 24 Hrs of Labs/Mics: Laboratory Tests 05/22/18 07: Anion Gap 10, Estimated GFR 55 L, BUN/Creatinine Ratio 20.8, CBC w Diff NO MAN DIFF REQ, RBC 4.33 L, MCV 86.6, MCH 28.9, MCHC 33.4, RDW 14.6 H, MPV 9.9, Gran % 66.6, Lymphocytes % 21.0, Monocytes % 7.8, Eosinophils % 3.6, Basophils % 1.0, Absolute Granulocytes 4.3, Absolute Lymphocytes 1.3, Absolute Monocytes 0.5, Absolute Eosinophils 0.2, Absolute Basophils 0.1 Assessment/Plan Assessment: 67M PMH atrial fibrillation s/p cardioversion, T2DM, CKD stage IIIB, CVA, BPH with urinary retention s/p TURP, prostate cancer, ROB on CPAP, depression, chronic lower back pain s/p vetebral fusion surgery presenting with several days of progressive lower extremity edema, difficulty urinating, and daytime sleepiness. ABG done in ER shows 7.30 with pCO2 64, placed on BiPAP, with improvement in mental status. Patient has no respiratory complaints at this time, is awake and alert. He does report lower back pain that is chronic and relieved with Morphine IR 15mg, which he was just given in ER. 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 Legs are 2+ bilaterally. Troponin is negative and chest x-ray negative for any acute cardiac pulmonology pathology, but stable prominent cardiac silhouette. Patient on room air saturating well at 93%. ECHO pending. Problem list: 1. Acute on Chronic right sided CHF 2. Acute hypercapnic respiratory failure-off BiPAP 3. Chronic Urinary Retention Acute on chronic right-sided heart failure * Cardiology on board (Dr. Riggs) * Pulmonology consulted. Patient follows up with Dr. Parikh for the past 5 years. * Follow-up on echocardiogram * Continue patient on IV Lasix 40 mg BID * Monitor ins and outs; daily weights * Continue to monitor on telemetry given past history of atrial fibrillation on Eliquis * Continue atenolol 50 mg twice daily Acute hypercapnic respiratory failure Patient presents to the ED with abnormal ABG 7.30 with pCO2 64, placed on BiPAP, with improvement in mental status. Patient stopped using his CPAP in November. * Pulmonology consulted * Follow-up on echocardiogram * Advised patient to use CPAP continuously * Patient has chronic lower extremity edema leading to right heart failure secondary to noncompliance with CPAP Chronic urinary retention Patient has a past medical history of prostate cancer diagnosed in January 2018 status post TURP 2. Patient is on Flomax and follows up with the urologist at [facility]. * Dr. Pacheco of urology consulted: recommends removing mcleod when acute diuresis complete * check PVR by bladder scan q shift after mcleod removal and straigth cath is more than 400 cc. Would tolerate an elevated PVR up to 400 cc in his case due to hypotonic bladder. * Patient on IV Lasix 40 mg * Continue Flomax * Monitor BUN/creatinine; conitnuing to improve since admission (1.6 from 2.0) Chronic Back Pain Patient history with multiple back surgeries in the past with chronic back pain. * Morphine ms Contin 15mg Q12 PO * MSIR 15mg BID * Lyrica 200mg TID PO * Ofirmev Q6 PRN IV CODE STATUS: Full code Diet: Regular diet DVT prophylaxis: Eliquis Problem List: 1. CHF (congestive heart failure) Pain Ratin Pain Location: tylinol Pain Goal: Remain pain free Pain Plan: tylinol Tomorrow's Labs & Rationales: cbc jamp Talia MEDINA,Amir 05/22/18 1509: Attending MD Review Statement Attending Statement Attending MD Statement: examined this patient, discuss w/resident/PA/TAX ASSESSOR, agreed w/resident/PA/TAX ASSESSOR, discussed with family, reviewed EMR data (avail), discussed with nursing Attending Assessment/Plan: Pt was seen and evaluated. Reports doing better. f/u cards and pulm recs
[2018-05-22 15:31] VITALS: BP 118/66
[2018-05-22 22:22] VITALS: BP 144/80
[2018-05-23 07:09] VITALS: BP 136/70
[2018-05-23 08:39] LABS: ABSOLUTE BASOPHIL COUNT 0 /CUMM (0.0-0.2); ABSOLUTE EOSINOPHIL COUNT 0.3 /CUMM (0.0-0.7); ABSOLUTE GRANULOCYTE CT 4.1 /CUMM (1.4-6.5); ABSOLUTE LYMPH COUNT 1.6 /CUMM (1.2-3.4); ABSOLUTE MONOCYTE COUNT 0.5 /CUMM (0.10-0.60); BASOPHIL % 0.7 % (0.0-2.0); EOSINOPHIL % 4.2 % (0-5); GRANULOCYTE % 62.3 % (42.2-75.2); HEMATOCRIT 38.7 % (42-52); MEAN CORPUSCULAR HGB CONC 34.2 G/DL (33.0-37.0); MEAN PLATELET VOLUME 9.7 FL (7.4-10.4); PLATELET COUNT 169 /CUMM (130-400); RBC DISTRIBUTION WIDTH 14.5 % (11.5-14.5); RED BLOOD CELL CT 4.55 /CUMM (4.70-6.10); WHITE BLOOD CELL COUNT 6.7 /CUMM (4.8-10.8)
[2018-05-23 08:49] VITALS: BP 136/70
--- NOTE | 2018-05-23 09:24 | PN- Housestaff ---
Kahlil Jaimes 05/23/18 0923: Subjective Follow-up For: Acute on Chronic right sided CHF Acute hypercapnic respiratory failure Chronic Urinary Retention Complaints: no complaints Tele-Events Since Last Visit: Atrial fibrillation Subjective: He was seen and examined this morning. He is alert awake and oriented to time place and person. Offers no complaints this morning. Overnight he was on CPAP machine. He is able to tolerate Cpap without any complaints. He reports that his lower extremity edema is much improving with IV Lasix. Denies any urinary retention. planning to DC Mcleod's catheter, check VOID trials and plan for discharge today Review of Systems Constitutional: Reports: see HPI. Objective Last 24 Hrs of Vital Signs/I&O Vital Signs Date Time Temp Pulse Resp B/P B/P Pulse O2 O2 Flow FiO2 Mean Ox Delivery Rate 05/23 0849 78 136/70 05/23 0849 78 136/70 05/23 0709 98.3 75 22 136/70 91 05/23 0049 84 94 05/23 0000 95 CPAP 05/22 2309 86 92 05/22 2222 97.7 82 20 144/80 93 05/22 2143 84 144/80 05/22 2143 84 144/80 05/22 1531 97.6 96 20 118/66 100 Intake & Output 05/23 1600 05/23 0800 05/23 0000 Intake Total 400 480 Output Total 1100 2450 Balance -700 -1970 Intake, Oral 400 480 Output, Urine 1100 2450 Physical Exam General Appearance: Alert, Oriented X3, Cooperative, No Acute Distress Other Physical Findings: HEENT: Atraumatic, PERRLA, EOMI, Mucous Membr. moist/pink Cardiovascular: Regular Rate, Normal S1, Normal S2 Lungs: ronchi at lower lung bases Abdomen: Normal Bowel Sounds, Soft, No Tenderness Neurological: Normal Speech, Strength at 5/5 X4 Ext, Normal Tone, Sensation Intact, Reflexes 2+ Extremities: +2 edema in bilateral lower extremities, erythema, no wheeping drainage Vascular: Normal Pulses, Pulses Symmetrical Current Medications: Current Medications Sig/Donny Start time Last Medication Dose Route Stop Time Status Admin Acetaminophen 1,000 MG Q6P PRN 05/20 0400 AC IV Apixaban 5 MG BID 05/20 09 AC 05/23 PO 0848 Atenolol 50 MG BID 05/20 09 AC 05/23 PO 0849 Atorvastatin Calcium 40 MG DAILY 05/20 09 AC 05/23 PO 0848 Bisacodyl 10 MG ONCE ONE 05/22 1515 DC 05/22 AZ 05/22 1516 1200 Bupropion HCl 300 MG QAM 05/20 09 AC 05/23 PO 0848 Duloxetine HCl 60 MG DAILY 05/20 09 AC 05/23 PO 0848 Furosemide 40 MG 7:30 AM, & 4:30 PM 05/20 0730 AC 05/23 IV 0848 Insulin Aspart 0 TIDAC 05/20 1200 AC 05/22 SC 1654 Morphine Sulfate 15 MG 0900,2100 05/22 2100 AC 05/23 PO 0847 Morphine Sulfate 15 MG 0600,1800 05/21 1800 DC 05/22 PO 0552 Morphine Sulfate 15 MG Q12H 05/20 1630 AC 05/23 PO 0526 Multivitamins 1 TAB DAILY 05/20 09 AC 05/23 Therapeutic PO 0848 Pregabalin 200 MG TID 05/20 09 AC 05/23 PO 0847 Senna/Docusate Sodium 2 TAB QPM PRN 05/22 1515 AC PO Tamsulosin HCl 0.4 MG BID 05/20 09 AC 05/23 PO 0849 Last 24 Hrs of Lab/Charles Results Last 24 Hrs of Labs/Mics: Laboratory Tests 05/23/18 0645: Anion Gap 12, Estimated GFR > 60, BUN/Creatinine Ratio 19.2, CBC w Diff NO MAN DIFF REQ, RBC 4.55 L, MCV 85.0, MCH 29.0, MCHC 34.2, RDW 14.5, MPV 9.7, Gran % 62.3, Lymphocytes % 24.7, Monocytes % 8.1, Eosinophils % 4.2, Basophils % 0.7, Absolute Granulocytes 4.1, Absolute Lymphocytes 1.6, Absolute Monocytes 0.5, Absolute Eosinophils 0.3, Absolute Basophils 0 Assessment/Plan Assessment: 67M PMH atrial fibrillation s/p cardioversion, T2DM, CKD stage IIIB, CVA, BPH with urinary retention s/p TURP, prostate cancer, ROB on CPAP, depression, chronic lower back pain s/p vetebral fusion surgery presenting with several days of progressive lower extremity edema, difficulty urinating, and daytime sleepiness. ABG done in ER shows 7.30 with pCO2 64, placed on BiPAP, with improvement in mental status. Patient has no respiratory complaints at this time, is awake and alert. He does report lower back pain that is chronic and relieved with Morphine IR 15mg, which he was just given in ER. 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 Legs are 2+ bilaterally. Troponin is negative and chest x-ray negative for any acute cardiac pulmonology pathology, but stable prominent cardiac silhouette. Patient on room air saturating well at 93%. ECHO pending. Problem list: 1. Acute on Chronic right sided CHF 2. Acute hypercapnic respiratory failure-off BiPAP 3. Chronic Urinary Retention Acute on chronic right-sided heart failure * Cardiology on board (Dr. Riggs) * Pulmonology consulted. Patient follows up with Dr. Parikh for the past 5 years. * Follow-up on echocardiogram * on oral lasix 40 daily * Monitor ins and outs; daily weights * Continue to monitor on telemetry given past history of atrial fibrillation on Eliquis * Continue atenolol 50 mg twice daily Acute hypercapnic respiratory failure Patient presents to the ED with abnormal ABG 7.30 with pCO2 64, placed on BiPAP, with improvement in mental status. Patient stopped using his CPAP in November. * Pulmonology consulted * Follow-up on echocardiogram * Advised patient to use CPAP continuously * Patient has chronic lower extremity edema leading to right heart failure secondary to noncompliance with CPAP Chronic urinary retention Patient has a past medical history of prostate cancer diagnosed in January 2018 status post TURP 2. Patient is on Flomax and follows up with the urologist at [facility]. * Dr. Pacheco of urology consulted: recommends removing mcleod when acute diuresis complete. * Will DC Mcleod's catheter today * check PVR by bladder scan q shift after mcleod removal and straigth cath is more than 400 cc. Would tolerate an elevated PVR up to 400 cc in his case due to hypotonic bladder. * Continue Flomax * Monitor BUN/creatinine * conitnuing to improve since admission (1.2 from 2.0) Chronic Back Pain Patient history with multiple back surgeries in the past with chronic back pain. * Morphine ms Contin 15mg Q12 PO * MSIR 15mg BID * Lyrica 200mg TID PO * Ofirmev Q6 PRN IV CODE STATUS: Full code Diet: Regular diet DVT prophylaxis: Eliquis Problem List: 1. CHF (congestive heart failure) Pain Ratin Pain Location: n/a Pain Goal: Remain pain free Pain Plan: tylinol Tomorrow's Labs & Rationales: none Talia MEDINA,Tiarrar 05/23/18 1200: Attending MD Review Statement Attending Statement Attending MD Statement: examined this patient, discuss w/resident/PA/WREATH INSPECTOR, agreed w/resident/PA/WREATH INSPECTOR, reviewed EMR data (avail), discussed with nursing Attending Assessment/Plan: Pt was seen and evaluated. Reports doing better, Liz was d/c --seen by Cards, OK to d/c home on Lasix and f/u as outpt --if urinates oK can be d/c home today --rest of the plan as per resident's note
--- NOTE | 2018-05-23 09:33 | Patient Discharge Instructions ---
Discharge Instructions General Discharge Information You were seen/treated for: Acute on Chronic right sided CHF Acute hypercapnic respiratory failure Chronic Urinary Retention Special Instructions: follow-up with PCP in 1 week after discharge Follow-up with manager [facility] in 1 week after discharge Use CPAP machine at nighttime for obstructive sleep apnea Diet Continue normal diet: Yes Recommended Diet: Diabetic Activity Full Activity/No Limits: Yes Acute Coronary Syndrome Inclusion Criteria At DC or during hospital stay patient has or had the following: ACS DIAGNOSIS No Discharge Core Measures Meds if any: Prescribed or Continued at Discharge Meds if any: NOT Prescribed or Continued at Discharge Congestive Heart Failure Inclusion Criteria At DC or during hospital stay patient has or had the following: CHF DIAGNOSIS Yes Discharge Core Measures Meds if any: Prescribed or Continued at Discharge Meds if any: NOT Prescribed or Continued at Discharge Cerebrovascular accident Inclusion Criteria At DC or during hospital stay patient has or had the following: CVA/TIA Diagnosis No Discharge Core Measures Meds if any: Prescribed or Continued at Discharge Meds if any: NOT Prescribed or Continued at Discharge Venous thromboembolism Inclusion Criteria VTE Diagnosis No VTE Type NONE VTE Confirmed by (Test) NONE Discharge Core Measures - Per Current guidelines, there needs to be overlap - treatment for the first 5 days of Warfarin therapy. - If discharged on Warfarin prior to 5 days of - overlap therapy, the patient will need to be - assessed for post discharge needs including - *Post discharge parental anticoagulation - *Warfarin and/or parental anticoagulation education - *Follow up date to check INR post discharge At least 5 days overlap therapy as Inpatient No Meds if any: Prescribed or Continued at Discharge Note: Overlap Therapy is Warfarin and Anticoagulant Meds if any: NOT Prescribed or Continued at Discharge
--- NOTE | 2018-05-23 11:05 | ECHOCARDIOGRAM REPORT ---
CLAUDINE HAYEDN Age: 67 : 1950 Gender: M Exam Date: 05/22/2018 10:32 Exam Location: 1 [address] Ht (in): 71 Wt (lb): 309 BSA: 2.71 BP: 126 / 74 Ordering Physician: Will Tamez MD Referring Physician: Will Tamez MD Technologist: Maty Collins [facility] Room Number: 189-02 Indications: Rhythm: Atrial fibrillation Technical Quality: Poor, Technically difficult study FINDINGS Left Ventricle Normal size left ventricle. Left ventricular wall thickness increased. Normal left ventricular ejection fraction estimated at 55-60%. Right Ventricle Right ventricle not well visualized, grossly normal. Right Atrium Right atrium not well visualized, grossly normal. Left Atrium Left atrial dilatation. Mitral Valve Mitral valve thickened. Trace to mild mitral regurgitation. Aortic Valve Trileaflet aortic valve. Diffuse thickening of the aortic valve cusps with reduced excursion. Aortic stenosis. Tricuspid Valve Tricuspid valve not well visualized, grossly normal. Pulmonic Valve Pulmonic valve not well visualized. Pericardium No pericardial effusion. Great Vessels Aortic root and proximal ascending aorta not well visualized, grossly normal. CONCLUSIONS 1. This was a technically difficult and limited study due to the patient's body habitus 2. Moderate fibrocalcific changes are present in the aortic valve. There appears to be mild valvular stenosis with a peak gradient of 15 mmHg. The valve however was not optimally assessed. 3. Mitral leaflet thickening is present with mild mitral insufficiency and mild left atrial enlargement. 4. There is no significant pericardial fluid present. 5. The left ventricular chamber size appears normal with mild concentric hypertrophy. The ejection fraction is normal. [place] wall motion assessment was not possible due to the quality of the images obtained. 6. The right heart structures were not well visualized. Right ventricular systolic pressure cannot be assessed on this study. Juan Jose Michelle M.D. (Electronically Signed) Final Date: 23 May 2018 11:04 MEASUREMENTS (Male / Female) Normal Values 2D ECHO LV Diastolic Diameter PLAX 5.2 cm 4.2 - 5.9 / 3.9 - 5.3 cm LV Systolic Diameter PLAX 3.0 cm 2.1 - 4.0 cm LV Fractional Shortening PLAX 42.3 % 25 - 46 % LV Ejection Fraction 2D Teich 73.0 % IVS Diastolic Thickness 1.3 cm LVPW Diastolic Thickness 1.3 cm LV Relative Wall Thickness 0.5 LVOT Diameter 2.4 cm Aortic Root Diameter 3.2 cm LA Systolic Diameter LX 4.2 cm 3.0 - 4.0 / 2.7 - 3.8 cm LA Volume 80.0 cm 18 - 58 / 22 - 52 cm DOPPLER AV Peak Velocity 197.0 cm/s AV Peak Gradient 15.5 mmHg LVOT Peak Velocity 65.2 cm/s LVOT Peak Gradient 1.7 mmHg AV Area Cont Eq pk 1.5 cm Mitral E Point Velocity 86.4 cm/s Mitral A Point Velocity 58.7 cm/s Mitral E to A Ratio 1.5 MV Deceleration Time 468.0 ms PV Peak Velocity 111.0 cm/s PV Peak Gradient 4.9 mmHg LV E' Lateral Velocity 13.9 cm/s Mitral E to LV E' Lateral Ratio 6.2 LV E' Septal Velocity 13.2 cm/s Mitral E to LV E' Septal Ratio 6.5
--- NOTE | 2018-05-23 11:23 | PN- Cardiology ---
Subjective Subjective: The patient currently feels well and tells me his lower extremity edema is currently at baseline. He denies any chest pain, dyspnea, or palpitations. Objective Vital Signs and I&Os Vital Signs Date Time Temp Pulse Resp B/P B/P Pulse O2 O2 Flow FiO2 Mean Ox Delivery Rate 05/23 0849 78 136/70 05/23 0849 78 136/70 05/23 0709 98.3 75 22 136/70 91 05/23 0049 84 94 05/23 0000 95 CPAP 05/22 2309 86 92 05/22 2222 97.7 82 20 144/80 93 05/22 2143 84 144/80 05/22 2143 84 144/80 05/22 1531 97.6 96 20 118/66 100 Intake & Output 05/23 1600 05/23 0805/23 0000 05/22 1600 05/22 0800 05/22 0000 Intake Total 400 480 750 100 340 Output Total 1100 2450 2400 100 1800 Balance -700 -1970 -1650 0 -1460 Intake, Oral 400 480 750 100 340 Output, Urine 1100 2450 2400 100 1800 Patient 296 lb Weight Physical Exam: General: no apparent distress. Alert. Eyes: No obvious scleral icterus. HEENT: No jugular venous distention or abnormal jugular venous pulsations. Cardiovascular: Normal intensity S1/S2. Irregular Respiratory: Lungs clear to auscultation bilaterally. Abdomen: Soft, nontender with no guarding or rebound tenderness. Musculoskeletal: No clubbing or cyanosis noted; 1+ lower extremity edema Skin: warm Neurologic: No gross focal deficits noted. Current Medications: Current Medications Sig/Donny Start time Last Medication Dose Route Stop Time Status Admin Acetaminophen 1,000 MG Q6P PRN 05/20 0400 AC IV Apixaban 5 MG BID 05/20 900 AC 05/23 PO 0848 Atenolol 50 MG BID 05/20 900 AC 05/23 PO 0849 Atorvastatin Calcium 40 MG DAILY 05/20 900 AC 05/23 PO 0848 Bisacodyl 10 MG ONCE ONE 05/22 1515 DC 05/22 AR 05/22 1516 1200 Bupropion HCl 300 MG QAM 05/20 900 AC 05/23 PO 0848 Duloxetine HCl 60 MG DAILY 05/20 900 AC 05/23 PO 0848 Furosemide 40 MG DAILY 05/24 900 AC PO Furosemide 40 MG 7:30 AM, & 4:30 PM 05/20 0730 DC 05/23 IV 0848 Insulin Aspart 0 TIDAC 05/20 1200 AC 05/22 SC 1654 Morphine Sulfate 15 MG 0900,2100 05/22 2100 AC 05/23 PO 0847 Morphine Sulfate 15 MG 0600,1800 05/21 1800 DC 05/22 PO 0552 Morphine Sulfate 15 MG Q12H 05/20 1630 AC 05/23 PO 0526 Multivitamins 1 TAB DAILY 05/20 09 AC 05/23 Therapeutic PO 0848 Pregabalin 200 MG TID 05/20 09 AC 05/23 PO 0847 Senna/Docusate Sodium 2 TAB QPM PRN 05/22 1515 AC PO Tamsulosin HCl 0.4 MG BID 05/20 09 AC 05/23 PO 0849 Results Last 48 Hrs of Labs/Mics: Laboratory Tests 05/23/18 0645: Anion Gap 12, Estimated GFR > 60, BUN/Creatinine Ratio 19.2, CBC w Diff NO MAN DIFF REQ, RBC 4.55 L, MCV 85.0, MCH 29.0, MCHC 34.2, RDW 14.5, MPV 9.7, Gran % 62.3, Lymphocytes % 24.7, Monocytes % 8.1, Eosinophils % 4.2, Basophils % 0.7, Absolute Granulocytes 4.1, Absolute Lymphocytes 1.6, Absolute Monocytes 0.5, Absolute Eosinophils 0.3, Absolute Basophils 0 05/22/18 0700: Anion Gap 10, Estimated GFR 55 L, BUN/Creatinine Ratio 20.8, CBC w Diff NO MAN DIFF REQ, RBC 4.33 L, MCV 86.6, MCH 28.9, MCHC 33.4, RDW 14.6 H, MPV 9.9, Gran % 66.6, Lymphocytes % 21.0, Monocytes % 7.8, Eosinophils % 3.6, Basophils % 1.0, Absolute Granulocytes 4.3, Absolute Lymphocytes 1.3, Absolute Monocytes 0.5, Absolute Eosinophils 0.2, Absolute Basophils 0.1 Recent Imaging Studies: Telemetry tracings were personally reviewed and show atrial fibrillation Echocardiogram 1. This was a technically difficult and limited study due to the patient's body habitus 2. Moderate fibrocalcific changes are present in the aortic valve. There appears to be mild valvular stenosis with a peak gradient of 15 mmHg. The valve however was not optimally assessed. 3. Mitral leaflet thickening is present with mild mitral insufficiency and mild left atrial enlargement. 4. There is no significant pericardial fluid present. 5. The left ventricular chamber size appears normal with mild concentric hypertrophy. The ejection fraction is normal. [place] wall motion assessment was not possible due to the quality of the images obtained. 6. The right heart structures were not well visualized. Right ventricular systolic pressure cannot be assessed on this study. Juan Jose Michelle M.D. (Electronically Signed) Final Date: 23 May 2018 11:04 Assessment/Plan Assessment/Plan 1. Paroxysmal atrial fibrillation 2. Diabetes mellitus 3. Chronic kidney disease 4. Acute on chronic heart failure, likely right-sided 5. Obstructive sleep apnea The patient feels well and tells me his lower extremity edema is at baseline. Creatinine has continued to trend down with IV diuresis. Echocardiogram as above was a limited study but shows normal left ventricular function; visualization of the right ventricle was limited. Likely will benefit from a higher baseline dose of Lasix; recommend 60 mg p.o. daily. Reviewed the importance of compliance with sleep apnea treatment. Follow-up with Dr. Michelle after discharge. Jose Velarde MD [facility] Continue telemetry? No
== END 2018-05-23 13:10 | DRG 291 ==
LOC: ERH 22:34 → 1NO 05-20 02:15 → ERHI 05-20 02:15 → ENRESERV 05-20 13:57 → ENTRNSPT 05-20 15:19 → EDTRNSPTSTS 05-20 15:27 → EDTRNSPT 05-20 15:27 → 1NO 05-20 15:37 → CMPTRNSPT 05-20 16:06 → 1NO 05-23 11:33 → ENPENDDIS 05-23 12:32 → ENTRNSPT 05-23 12:58 → EDTRNSPTSTS 05-23 13:00 → EDTRNSPT 05-23 13:00 → 1NO 05-23 13:10 → CMPTRNSPT 05-23 13:23
PROVIDERS: Hospitalist; Internal Medicine Interventional Cardiology; Physical Medicine & Rehabilitation Pain Medicine; Physician Assistant Medical
PROC: 5A09457 Assistance with Respiratory Ventilation, 24-96 Consecutive Hours, Continuous Positive Airway Pressure (ICD-10-PCS; principal; 2018-05-21)
DX: I13.0 Hypertensive heart and chronic kidney disease with heart failure and stage 1 through stage 4 chronic kidney disease, or unspecified chronic kidney disease (principal); J96.02 Acute respiratory failure with hypercapnia; G93.40 Encephalopathy, unspecified; Z68.41 Body mass index [BMI] 40.0-44.9, adult; N17.9 Acute kidney failure, unspecified; N18.3 Chronic kidney disease, stage 3 (moderate); I50.813 Acute on chronic right heart failure; E66.01 Morbid (severe) obesity due to excess calories; N40.1 Benign prostatic hyperplasia with lower urinary tract symptoms; R33.8 Other retention of urine; C61 Malignant neoplasm of prostate; G47.33 Obstructive sleep apnea (adult) (pediatric); I48.0 Paroxysmal atrial fibrillation; E11.22 Type 2 diabetes mellitus with diabetic chronic kidney disease; Z79.01 Long term (current) use of anticoagulants; Z79.84 Long term (current) use of oral hypoglycemic drugs; Z79.891 Long term (current) use of opiate analgesic; H91.90 Unspecified hearing loss, unspecified ear; M10.9 Gout, unspecified; E78.5 Hyperlipidemia, unspecified; Z90.79 Acquired absence of other genital organ(s)
CPT/HCPCS: 1NSP; 36592; 71046; 80307; 81001; 82436; 87086; 93005; 93010; 93306; 96374; 99291; J1644; J1940